=== PATIENT | female | born 1995 | race Caucasian/White ===

== ENCOUNTER 2019-02-13 10:03 | Emergency (ER) | payer SELFPAY ==
[2019-02-13 10:04] VITALS: BP 129/82; PULSE 77; RESP 20; TEMP 36.8; O2SAT 98; BMI 20.9
--- NOTE | 2019-02-13 10:22 | US_ITS ---
STUDY: ULTRASOUND OF THE FEMALE PELVIS - COMPLETE REASON FOR EXAM: Female, 23 years old. Right lower quadrant pain. LMP: January 22, 2019 TECHNIQUE: Transvaginal TECHNICAL QUALITY: Adequate. COMPARISON: None. FINDINGS: The uterus is retroverted and is tilted to the left side of the pelvis. The uterus measures 7.5 cm x 5.3 cm x 3.4 cm. There is a Nabothian cyst of the cervix. The endometrium measures 9.0 mm in thickness, and is hyperechoic. There is no demonstrated endometrial mass. Findings suggestive of a septated uterus. There is no demonstrated myometrial mass. I.U.D. - The patient does not have an I.U.D. The right ovary is visualized. The right ovary measures 2.3 cm x 1.8 cm x 1.3 cm. There is no right ovarian cyst or ovarian mass. There is no visualized right adnexal mass or complex lesion. There is normal arterial and normal venous vascularity. The left ovary is visualized. The left ovary measures 3.4 cm x 2.0 cm x 2.0 cm. There is no left ovarian cyst or ovarian mass. There is no visualized left adnexal mass or complex lesion. There is normal arterial and normal venous vascularity. There is minimal fluid in the cul-de-sac. Polycystic ovary disease: No. US/Transvaginal Non- IMPRESSION: Findings suggestive of a septated uterus. Electronically Signed: Bertin Vang, at 12:33 EDT , Service support ,
[2019-02-13 10:42] LABS: Absolute Lymphocyte Count 2.28 X10^3/ul (0.83-4.51); Absolute Neutrophil Count 3.3 X10^3/uL (2.0-7.7); Basophil# 0.08 X10^3/uL; Basophil% 1.2 % (0-1); Eosinophil# 0.76 X10^3/uL; Hematocrit 40.5 % (37-47); Hemoglobin 13.6 g/dl (12.0-15.0); Lymphocyte # 2.28 X10^3/ul (4.0); Lymphocyte % 32.9 % (19-41); Mean Corp Hgb Conc 33.6 g/gl (32-36); Mean Corpuscular Hgb 30.6 pg (27.0-32.0); Mean Platelet Vol. 11.2 fl (6.2-12.0); Monocyte# 0.52 X10^3/uL; Monocyte% 7.5 % (0-10); Neutrophil # 3.29 X10^3/uL (2.7-7.7); Neutrophil % 47.3 % (47-70); Platelet Count 234 K/mm3 (150-450); RBC Distribution Width CV 12.2 % (11.6-14.6); RBC Distribution Width SD 40.7 fl (35.1-43.9); Red Blood Count 4.45 M/mm3 (4.2-5.4); White Blood Count 6.9 K/mm3 (4.4-11.0)
[2019-02-13 10:43] LABS: POSITIVE COUNT NO; POSITIVE DIFFERENTIAL NO; POSITIVE MORPHOLOGY NO
[2019-02-13] MEDS: Ondansetron 4 MG/2 ML Vial IV (10:52)
[2019-02-13] MEDS: 0.9% Normal Saline 1,000 ML 150 ML IV (10:52)
[2019-02-13] MEDS: Morphine 4 MG/ML Syringe IV ×2 (10:52→12:59)
[2019-02-13 10:53] LABS: Anion Gap 8 (5-15); BUN 12 mg/dL (7-18); BUN/Creat Ratio 16.3 RATIO (10-20); Calcium,Total 8.8 mg/dL (8.5-10.1); Chloride 103 mmol/L (98-107); Creatinine, Serum 0.74 mg/dL (0.55-1.02); EST Glomerular Filtration Rate 105 mL/min (>60); Est Glom Filt Rate - Afr Amer 127 mL/min (>60); Estimated Creatinine Clearance 111.01 ml/min; Glucose 95 mg/dL (74-106); Potassium 4.1 mmol/L (3.5-5.1); Sodium Level 139 mmol/L (136-145)
[2019-02-13 10:59] LABS: Pregnancy, Serum, hCG Quali. NEGATIVE Negative (0-9 Nonpreg)
[2019-02-13 11:01] VITALS: BP 130/88; PULSE 79; RESP 18
[2019-02-13 11:10] LABS: Glucose, Dipstick Normal (Normal); Ketone-Dipstick 5 mg/dl (Negative); Leukocyte Esterase-Dipstick 25 /ul (Negative); Mucous, Urine 0 SEEN /hpf (<or=2+); Nitrite-Dipstick Negative (Negative); Occult Blood-Urine 250 /ul (Negative); Protein-Dipstick 30 mg/dl (Negative); Urine Bilirubin Dipstick Negative (Negative); Urine Urobilinogen Normal (Normal); Urine pH 6.5 (5.0 - 8.0); White Blood Cells 0 SEEN /hpf (0-5)
[2019-02-13 11:22] LABS: Color, Urine Amber (Yellow); Urine Clarity Cloudy (Clear)
[2019-02-13 11:23] LABS: Red Blood Cells-Urine > 100 SEEN /hpf (0-5)
[2019-02-13 11:24] LABS: Bacteria 2+ /hpf (None Seen); Squamous Epithelial Cells - UA 0-5 SEEN /hpf (5-10)
[2019-02-13] MEDS: Ketorolac 30 MG/ML Syringe IV (11:32)
--- NOTE | 2019-02-13 11:49 | CT_ITS ---
STUDY: CT ABDOMEN AND PELVIS WITHOUT CONTRAST REASON FOR EXAM: Female, 23 years old. PT STATED R GROIN PAIN RADIATION DOSAGE (If Supplied By Facility): CTDIvol = ( 6.08 ) mGy, DLP = ( 302.31 ) mGycm TECHNIQUE: Transaxial images were obtained from the dome of the diaphragm to the symphysis pubis without oral contrast, and without intravenous contrast. Sagittal and coronal images were reconstructed. Individualized dose optimization techniques were used for this CT. COMPARISON: None. FINDINGS: The visualized lung bases are unremarkable. The visualized portions of the heart are within normal limits. Normal liver. Normal gallbladder and extrahepatic biliary system. Normal spleen. Normal pancreas. Normal bilateral adrenal glands. There is no evidence of nephrolithiasis. The left kidney has a normal appearance. The right kidney demonstrates moderate hydronephrosis and hydroureter. The right ureter is dilated to the ureterovesical junction where note is made of an obstructing calculus measuring approximately 3 mm, refer to image #146 series 2, image #40 series 601 and image #62 series 602. The bladder is contracted. No bladder stone. Normal visualized stomach. Normal small intestine. Normal colon. The appendix is visualized and appears normal. Normal abdominal aorta. Normal inferior vena cava. Normal retroperitoneum. Normal urinary bladder. Normal abdominal wall. Normal osseous structures. CT/Abdomen/Pelvis without Cont IMPRESSION: There is an obstructing distal right ureterovesical junction calculus with moderate hydronephrosis and hydroureter as described. This stone measures approximately 3 mm in diameter. Electronically Signed: Christie Pro MD at 12:20 EDT , Service support ,
--- NOTE | 2019-02-13 12:04 | ED.DCSUM_ITS ---
- ER Visit Summary Date of Service: 02/13/19 Chief Complaint: Right lower quadrant pain History of Present Illness: The patient is a 23 F who woke this morning with right lower quadrant pain and pain into the right low back. She reports some mild nausea. She denies urinary symptoms. Her last menstrual cycle was approximately 3 weeks ago. She does have a history of ovarian cysts. She denies any personal or family history of kidney stones. Physical Examination: Vital signs unremarkable. Patient is lying in bed. She appears uncomfortable. Head neck examination is unremarkable. Heart is regular rate and rhythm. Lung sounds are clear. Abdomen is soft with tenderness in the right lower quadrant. No guarding or rebound. Back examination reveals no CVA tenderness. There is tenderness in the right low lumbar paraspinal region. Test Results: Urinalysis shows RBCs. test is negative. Emergency Department Course and Treatment: Patient was given morphine and Zofran for pain. She was initially sent to ultrasound prior to return of labs as my first concern was ovarian torsion. Upon return of blood work and urinalysis, patient is given Toradol. Pelvic ultrasound ultimately returned with normal ova ry. Septated uterus is noted. CT flank reveals a 3 mm distal right ureter stone at the UVJ. On repeat evaluation patient is resting much more comfortably. Test results discussed with patient and mother at bedside. She will be discharged with appropriate medication and follow-up with Dr. Ramesh as needed. Treatment Plan: [] Disposition: Discharge Impression: Right distal ureterolithiasis This note was generated with [employer] dictation software. It may contain incorrect words, spelling, and punctuation that were not noted in review of the chart prior to signing ED Disposition - Plan for ED Patient: Referrals: Care Physician,No Primary [Primary Care Provider] -
[2019-02-13 13:02] VITALS: BP 120/88; PULSE 72; RESP 18; O2SAT 99
--- NOTE | 2019-02-13 13:59 | DCINST.ED_ITS ---
ED Disposition - Plan for ED Patient: Disposition: Home or Assisted Living Instructions: ED Stone Renal W Colic Prescriptions: Hydrocodone Bitart/Apap 5-325 [[employer] 5MG-325MG] 1 tablet PO Q6H PRN PRN 3 Days #10 tablet PRN Reason: Pain Ondansetron [Zofran Odt] 4 mg PO Q8H PRN PRN #10 tablet PRN Reason: Nausea Tamsulosin HCl [Flomax] 0.4 mg PO DAILY #7 capsule Ketorolac [Toradol] 10 mg PO Q6H PRN #14 tablet PRN Reason: Pain Referrals: Davi Ramesh MD [STAFF PHYSICIAN] - As Needed
[2019-02-13 14:00] VITALS: BP 113/81; PULSE 74; RESP 16
[2019-02-13 14:10] VITALS: BP 113/81; PULSE 74; RESP 16
== END 2019-02-13 14:10 | disposition home or self-care (01) ==
PROVIDERS: Emergency Provider Emergency Medicine
DX: N20.1 Calculus of ureter (principal)
CPT/HCPCS: 74176; 76830; 80048; 81001; 84703; 85025; 93976; 96361; 96374; 96375; 96376; 99283; J7030; A4216; J2405

== ENCOUNTER 2019-02-19 20:19 | Emergency (ER) | payer SELFPAY ==
[2019-02-19 20:23] VITALS: BP 121/77; PULSE 83; RESP 16; TEMP 36.7; BMI 21.8
--- NOTE | 2019-02-19 21:23 | ED.DCSUM_ITS ---
- ER Visit Summary Date of Service: 02/19/19 Chief Complaint: Constipation History of Present Illness: The patient is a 23 F recent diagnosis of kidney stone last Monday. Started on [place] and Toradol for pain. She denies any nausea, vomiting or any significant abdominal pain. States she just feels full. No fever. Examination: Well-appearing young female. Vital signs are stable afebrile. No distress. HEENT exam well-hydrated. Otherwise unremarkable. Neck nontender. Lungs clear to auscultation bilaterally. Heart regular rhythm no murmur. Abdomen soft. Nondistended. Normal bowel sounds no peritoneal signs. No hernias. No masses. No signs of obstruction. Moving all 4 extremities. Neurologically awake and alert with no focal motor deficits. Test Results: None Emergency Department Course and Treatment: Patient's history and exam are consistent with constipation most likely from a recent narcotics for her kidney stone. Treatment Plan: She and mom are comfortable with her being discharged home on magnesium citrate for constipation. Disposition: dc Impression: Acute constipation secondary to pain medications for recently diagnosed kidney stone This note was generated with [employer] dictation software. It may contain incorrect words, spelling, and punctuation that were not noted in review of the chart prior to signing ED Disposition - Plan for ED Patient: Referrals: Care Physician,No Primary [Primary Care Provider] -
[2019-02-19] MEDS: Magnesium Citrate 300 ML PO (21:24)
--- NOTE | 2019-02-19 21:31 | ED.DEP ---
ED Disposition - Plan for ED Patient: Disposition: Home or Assisted Living Instructions: ED Constipation Referrals: Blu Boyd MD [STAFF PHYSICIAN] - As Needed Additional Instructions: Magnesium citrate for the constipation. I would drink 1 bottle over half an hour. If no bowel movement in 1-2 hours and drink the second bottle. Plenty of fluids. Fiber rich foods such as celery, carrots and fiber crackers. Apples are also very good with the apple peel on them. Follow-up if not improving return if worse.
[2019-02-19 21:42] VITALS: BP 119/76; PULSE 83; RESP 14; O2SAT 99
== END 2019-02-19 21:43 | disposition home or self-care (01) ==
PROVIDERS: Emergency Provider Emergency Medicine
DX: K59.03 Drug induced constipation (principal); T40.2X5A Adverse effect of other opioids, initial encounter; T39.8X5A Adverse effect of other nonopioid analgesics and antipyretics, not elsewhere classified, initial encounter; N20.0 Calculus of kidney
CPT/HCPCS: 99282

== ENCOUNTER 2019-06-29 10:19 | Emergency (ER) | payer SELFPAY ==
[2019-06-29 10:20] VITALS: BP 130/92; PULSE 88; RESP 16; TEMP 36.7; O2SAT 100; BMI 22.6
--- NOTE | 2019-06-29 10:35 | EKG12_ITS ---
Test Reason : CP Blood Pressure : / mmHG Vent. Rate : 071 BPM Atrial Rate : 071 BPM P-R Int : 130 ms QRS Dur : 064 ms QT Int : 398 ms P-R-T Axes : 072 062 068 degrees QTc Int : 432 ms Normal sinus rhythm Normal ECG Confirmed by LLOYD STEPHENS, GIUSEPPE ([id number]), news videotape editor KIMBERLEY DUNCAN ([id number]) on 07/01/2019 1:41:33 PM Referred By: CAT Confirmed By:GIUSEPPE DESAI MD
--- NOTE | 2019-06-29 10:36 | ED.VIS.GEN ---
History of Present Illness Chief Complaint: Chest Pain Informant: Patient, Family Onset: Today Context: Gradual Onset Timing: Continuous Current Severity: Moderate Maximum Severity: Severe Narrative: She presents with chest pain that started around 3 AM this morning. She presents at 1030 for evaluation. Patient states she had not been to sleep yet. She has not been able to sleep because of the pain. She points to the lower sternal area and states it radiates up her chest and towards the right side of her neck. She does feel like she has some pain in her back. She does not have cough or URI symptoms. She denies nausea or vomiting. Past Medical History - Allergies and Home Meds Allergies/Adverse Reactions: Allergies No Known Allergies Allergy (Verified 06/29/19 10:26) Primary Care Physician: Care Physician,No Primary [Primary Care Provider] - Prior records reviewed: Yes Past Medical History: - - Reviewed Smoking Status: Never smoker Review of Systems General: Denies: Chills, Fever Eyes: Denies: Visual changes - bilaterally ENT: Denies: Bilateral ear pain Cardiovascular: Reports: Chest pain Respiratory: Reports: Dyspnea - Hard to get a deep breath. Denies: Cough Gastrointestinal: Denies: Abdominal pain, Nausea, Vomiting Musculoskeletal: Reports: Neck pain, Back pain Neurological: Denies: Headache, Weakness, Parasthesia Endocrine: Denies: Polyuria, Polydipsia Hematologic: Denies: Easy bruising Allergy: Denies: Uticaria Physical Exam Vital Signs/Narrative: Vital Signs Temp Pulse Resp BP Pulse Ox 06/29/19 10:20 98.0 F 88 16 130/92 H 100 Inital Vital Signs reviewed: Yes General: Well nourished, Well developed ENT: Moist mucous membranes Neck: Supple, Nontender Cardiovascular: Regular rate, Regular rhythm Respiratory: No distress, CTA bilaterally, Chest tenderness - Reproducible tenderness of the lower sternum. Abdomen: Soft, Nontender Back: Nontender Extremities: Nontender Skin: Normal color Neurological: Alert, Oriented x3 Psychological: - - Anxious Diagnostic/Tx/Re-eval Impressions Chest X-Ray 06/29/19 10:52 IMPRESSION: Normal x-ray examination of the chest. Electronically Signed: Chriss Marcano MD ([place]oks) at 11:16 EDT , Service support , 06/29/19 10:52 Chest PA and Lateral [RAD] Stat Laboratory Results 06/29/19 06/29/19 06/29/19 10:40 10:40 10:40 WBC 12.3 H RBC 4.59 Hgb 14.2 Hct 42.2 MCV 91.9 MCH 30.9 MCHC 33.6 RDW Std Deviation 40.2 RDW Coeff of Lili 11.9 Plt Count 306 MPV 11.1 Immature Gran % (Auto) 0.600 Neut % (Auto) 70.8 H Lymph % (Auto) 18.4 L Mclennan % (Auto) 8.5 Eos % (Auto) 1.3 Baso % (Auto) 0.4 Absolute Neuts (auto) 8.7 H Absolute Lymphs (auto) 2.27 Nucleated RBC % 0 D-Dimer Quant (PE/DVT) < 0.27 L Sodium 138 Potassium 3.6 Chloride 104 Carbon Dioxide 29.0 Anion Gap 5 BUN 12 Creatinine 0.68 Estim Creat Clear Calc 121.48 Est GFR (MDRD) Af Amer 140 Est GFR (MDRD) Non-Af 115 BUN/Creatinine Ratio 17.8 Glucose 89 Calcium 8.9 Total Bilirubin 0.40 Direct Bilirubin 0.12 AST 15 ALT 16 Alkaline Phosphatase 63 Troponin I < 0.015 Total Protein 7.4 Albumin 4.0 Globulin 3.4 Lipase 62 L Serum , Qual 06/29/19 10:40 WBC RBC Hgb Hct MCV MCH MCHC RDW Std Deviation RDW Coeff of Lili Plt Count MPV Immature Gran % (Auto) Neut % (Auto) Lymph % (Auto) Mclennan % (Auto) Eos % (Auto) Baso % (Auto) Absolute Neuts (auto) Absolute Lymphs (auto) Nucleated RBC % D-Dimer Quant (PE/DVT) Sodium Potassium Chloride Carbon Dioxide Anion Gap BUN Creatinine Estim Creat Clear Calc Est GFR (MDRD) Af Amer Est GFR (MDRD) Non-Af BUN/Creatinine Ratio Glucose Calcium Total Bilirubin Direct Bilirubin AST ALT Alkaline Phosphatase Troponin I Total Protein Albumin Globulin Lipase Serum , Qual NEGATIVE - EKG Initial EKG Interpretation: Sinus Rhythm - Sinus at 71 with no acute ischemia. - Medical Decision Making Patient was given morphine, Zofran, and IV fluids. On repeat evaluation she reports significant improvement in her symptoms. We talked about the possibility of gastritis and reflux versus costochondritis. She does state that she just finished a course of prednisone for poison james. This leads me more towards gastritis and reflux as opposed to costochondritis. Patient be started on Prilosec. She will also be given a prescription for Bentyl if needed. She will be referred to local primary care physician to establish care. ED Disposition - Plan for ED Patient: Disposition: Home or Assisted Living Diagnosis: Atypical chest pain Instructions: CHEST PAIN, NonCardiac Prescriptions: Dicyclomine HCl [Bentyl] 20 mg PO TIDAC PRN #20 capsule PRN Reason: Pain Omeprazole [Prilosec] 20 mg PO DAILY #30 capsule Referrals: Marilynn Schwartz MD [STAFF PHYSICIAN] - 1-2 Weeks
[2019-06-29] MEDS: Morphine 4 MG/ML Syringe IV (10:48)
[2019-06-29] MEDS: 0.9% Normal Saline 1,000 ML 150 ML IV (10:48)
[2019-06-29] MEDS: Ondansetron 4 MG/2 ML Vial IV (10:48)
--- NOTE | 2019-06-29 10:52 | RAD_ITS ---
STUDY: X-RAY CHEST REASON FOR EXAM: Female, 23 years old. Chest pain TECHNIQUE: PA and lateral views of the chest. COMPARISON: 09/25/2013 FINDINGS: EKG leads project over the chest. The lungs are clear and expanded. There is no demonstrated pleural abnormality. Normal size heart. Normal mediastinum and adrianne. Normal visualized pulmonary arteries. Normal visualized aortic arch and descending thoracic aorta. Normal visualized thoracic spine. Normal visualized ribs, clavicles, and shoulders. There is no demonstrated abnormality of the visualized soft tissue structures of the upper abdomen. RAD/Chest PA and Lateral IMPRESSION: Normal x-ray examination of the chest. Electronically Signed: Chriss Marcano MD ([place]) at 11:16 EDT , Service support ,
[2019-06-29 11:33] LABS: Absolute Lymphocyte Count 2.27 X10^3/uL (0.83-4.51); Absolute Neutrophil Count 8.7 X10^3/uL (2.0-7.7); Basophil# 0.05 X10^3/uL; Basophil% 0.4 % (0-1); Eosinophil# 0.16 X10^3/uL; Eosinophils% 1.3 % (0-5); Hematocrit 42.2 % (37-47); Hemoglobin 14.2 g/dL (12.0-15.0); Lymphocyte # 2.27 X10^3/ul (4.0); Lymphocyte % 18.4 % (19-41); Mean Corp Hgb Conc 33.6 g/dL (32-36); Mean Corpuscular Hgb 30.9 pg (27.0-32.0); Mean Corpuscular Volume 91.9 fL (81-99); Mean Platelet Vol. 11.1 fl (6.2-12.0); Monocyte# 1.05 X10^3/uL; Monocyte% 8.5 % (0-10); NRBC Flagged by Analyzer 0 % (0-5); Neutrophil # 8.74 X10^3/uL (2.7-7.7); Neutrophil % 70.8 % (47-70); Platelet Count 306 K/mm3 (150-450); RBC Distribution Width CV 11.9 % (11.6-14.6); RBC Distribution Width SD 40.2 fl (35.1-43.9); Red Blood Count 4.59 M/mm3 (4.2-5.4); White Blood Count 12.3 K/mm3 (4.4-11.0)
[2019-06-29 11:37] LABS: Internal QC Validated? YES +Cl - CLEAR BKGD; Pregnancy, Serum, hCG Quali. NEGATIVE Negative
[2019-06-29 11:39] LABS: D-Dimer Quantitative (DVT/PE) < 0.27 FEU/ug/m (0.27-0.49)
[2019-06-29 11:47] LABS: AST(SGOT) 15 U/L (15-37); Alanine Aminotransfer ALT/SGPT 16 U/L (13-56); Alkaline Phosphatase 63 U/L (45-117); Anion Gap 5 (5-15); BUN 12 mg/dL (7-18); BUN/Creat Ratio 17.8 RATIO (10-20); Bilirubin, Direct 0.12 mg/dL (0.00-0.30); Calcium,Total 8.9 mg/dL (8.5-10.1); Chloride 104 mmol/L (98-107); Creatinine, Serum 0.68 mg/dL (0.55-1.02); EST Glomerular Filtration Rate 115 mL/min (>60); Est Glom Filt Rate - Afr Amer 140 mL/min (>60); Estimated Creatinine Clearance 121.48 ml/min; Globulin 3.4 g/dL (2.2-4.2); Glucose 89 mg/dL (74-106); Lipase 62 U/L (73-393); Potassium 3.6 mmol/L (3.5-5.1); Protein, Total 7.4 g/dL (6.4-8.2); Sodium Level 138 mmol/L (136-145)
[2019-06-29 13:07] VITALS: BP 105/74; PULSE 61; RESP 15; O2SAT 98
== END 2019-06-29 13:08 | disposition home or self-care (01) ==
PROVIDERS: Emergency Provider Emergency Medicine
DX: R07.89 Other chest pain (principal); R06.00 Dyspnea, unspecified; M54.2 Cervicalgia; M54.9 Dorsalgia, unspecified
CPT/HCPCS: 71046; 80048; 80076; 83690; 84484; 84703; 85025; 85379; 93005; 96361; 96374; 96375; 99284; J7030; A4216; J2405

== ENCOUNTER 2020-01-02 15:04 | Emergency (ER) | payer SELFPAY ==
[2020-01-02 15:05] VITALS: BP 114/80; PULSE 94; RESP 14; TEMP 36.9; O2SAT 97; BMI 24.3
[2020-01-02 15:19] VITALS: RESP 18
--- NOTE | 2020-01-02 15:34 | ED.VIS.URI ---
History of Present Illness Chief Complaint: Nausea/Vomiting/Diarrhea Informant: Patient Onset: Weeks - 1 Context: Gradual Onset Timing: Intermittent Current Severity: Moderate Maximum Severity: Moderate Worsened by: Eating Solids - makes nauseated/vomit Relieved by: - - zofran Associated Symptoms: Nasal Congestion, Myalgias, Nausea, Vomiting, Diarrhea, Productive Cough. Negative for: Headache, Shortness of Breath, Chest Pain, Hemoptysis Narrative: Healthy 24-year-old female has been sick with respiratory and GI complaints for 1 week. She states her sisters were diagnosed with influenza. She went to [facility] and was swabbed for influenza but told it was negative. Her illness has persisted. She feels achy all over, she feels dehydrated although she is trying to drink fluids. She is urinating. She was given Zofran that she is taking and that is helping but when she ever she eats, she still vomits. She started having diarrhea yesterday, is watery and nonbloody, non-melanotic. Occasional mild abdominal cramping but nothing major or focal. No dyspnea except when she is having coughing fits it is hard to take a breath. No wheezing. Not an asthmatic. She is not . No urinary or vaginal complaints. Left ear occasionally hurts. No recent travel out of the region. Past Medical History - Allergies and Home Meds Allergies/Adverse Reactions: Allergies No Known Allergies Allergy (Verified 01/02/20 15:05) Primary Care Physician: Care Physician,No Primary [Primary Care Provider] - Past Medical History: None Surgical History: no surgical history Lives: With Family Smoking Status: Never smoker Review of Systems General: Reports: Fever, Malaise, Subjective. Denies: Chills, Sweats Eyes: Denies: Visual changes - bilaterally, Diplopia ENT: Reports: Left ear pain. Denies: Rhinorrhea, Sore throat Cardiovascular: Denies: Chest pain, Palpitations Respiratory: Reports: Cough, Sputum. Denies: Dyspnea, Dyspnea on exertion, Orthopnea Gastrointestinal: Reports: Abdominal pain, Nausea, Vomiting, Diarrhea. Denies: Melena, Hematochezia Genitourinary: Denies: Dysuria, Hematuria, Frequency Musculoskeletal: Reports: Myalgias. Denies: Arthralgias, Back pain, Extremity Pain Skin: Denies: Rash, Wounds Neurological: Denies: Headache, Weakness, Numbness Physical Exam Vital Signs/Narrative: Vital Signs Temp Pulse Resp BP Pulse Ox 01/02/20 15:19 18 01/02/20 15:05 98.4 F 94 14 114/80 97 Inital Vital Signs reviewed: Yes General: Well nourished, Well developed, - - well-apparing, nad Head: Normocephalic, Atraumatic Eyes: Perrl, EOMI Ears: Normal external canal, TM's clear. 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 She agreed. She was treated with IV fluids 1 L, along with a small dose of Phenergan and Toradol. She feels much better on reevaluation and is able to drink fluids. Will be discharged home, continue supportive care and hydration, she has Zofran which is helping at home. Follow-up or return if worse. ED Disposition - Plan for ED Patient: Disposition: Home or Assisted Living Diagnosis: Influenza-like illness Instructions: GASTROENTERITIS, Viral (6y-Adult), VIRAL SYNDROME (Adult) Referrals: Maida Arias [NON-STAFF] - 3-5 Days if not improving (or your own doctor if you have one)
[2020-01-02] MEDS: 0.9% Normal Saline 1,000 ML 999 ML IV (15:46)
[2020-01-02] MEDS: proMETHazine 25 MG/ML Syringe 6.25 MG IV (15:47)
[2020-01-02] MEDS: Ketorolac 30 MG/ML Syringe IV (15:47)
== END 2020-01-02 17:06 | disposition home or self-care (01) ==
PROVIDERS: Emergency Provider Emergency Medicine
DX: J11.1 Influenza due to unidentified influenza virus with other respiratory manifestations (principal); R11.2 Nausea with vomiting, unspecified; R19.7 Diarrhea, unspecified; R05 Cough; H53.2 Diplopia; H92.02 Otalgia, left ear
CPT/HCPCS: 96361; 96374; 96375; 99283; J7030; A4216

== ENCOUNTER → 2020-03-23 08:08 | Outpatient (CLI) | payer SELFPAY ==
[2020-03-19 12:17] VITALS: BMI 24.3
--- NOTE | 2020-03-23 08:10 | US_ITS ---
STUDY: FIRST TRIMESTER OBSTETRICAL ULTRASOUND REASON FOR EXAM: Female, 24 years old dating LMP: January 18, 2020. TECHNIQUE: Transabdominal TECHNICAL QUALITY: Adequate. PRIOR ULTRASOUND: None. FINDINGS: There is visualization of a single gestational sac in a normal intrauterine position. The mean sac diameter (MSD) measures 3.01 cm, indicating an estimated gestational age (EGA) of 8 weeks, 1 days. The gestational sac shape is within normal limits. There is a visualized yolk sac. The yolk sac measures 6.8 mm. The placenta is non-visualized. There is visualization of a live embryo. The crown-rump length (CRL) measures 1.57 cm, indicating an estimated gestational age (EGA) of 7 weeks, 6 days. There is demonstrated cardiac activity with a heart rate of 169 bpm. The estimated gestation age (EGA) by LMP is 9 weeks, 2 days. The estimated date of delivery (EDUARDO) by LMP is October 24, 2020. The estimated gestation age (EGA) by US is 8 weeks, 0 days. The estimated date of delivery (EDUARDO) by US is November 02, 2020. The uterus measures 11.6 cm x 7.9 cm x 1.8 cm. There is no demonstrated uterine fibroid. The cervix is closed. The right ovary measures 3.3 cm x 2.2 cm x 3.9 cm. There is no right ovarian cyst. There is no visualized right adnexal mass or complex lesion. The left ovary measures 2.9 cm x 2.1 cm x 2.8 cm. Within it, a dominant follicle is seen. This measures 2 cm x 1.7 cm x 1.7 cm. There is no visualized left adnexal mass or complex lesion. There is no fluid in the cul de sac. US/Init OB < 14Wks US IMPRESSION: Single live intrauterine gestation with a mean gestational age of 8 weeks. Dominant follicle in the left ovary measuring 2 cm x 1.7 cm x 1.7 cm. Electronically Signed: Bertin Vang, at 9:10 EDT , Service support ,
== END ==
PROVIDERS: Referring Provider Obstetrics & Gynecology; Visit Provider Obstetrics & Gynecology
DX: Z34.90 Encounter for supervision of normal pregnancy, unspecified, unspecified trimester (principal)
CPT/HCPCS: 76801

== ENCOUNTER 2020-03-23 18:36 | Emergency (ER) | payer MEDICAID, SELFPAY ==
[2020-03-19 12:17] VITALS: BMI 24.3
[2020-03-23 18:37] VITALS: BP 136/90; PULSE 89; RESP 14; TEMP 37; O2SAT 99; BMI 22.3
--- NOTE | 2020-03-23 18:51 | ED.DCSUM_ITS ---
- ER Visit Summary Date of Service: 03/23/20 Chief Complaint: Dental pain History of Present Illness: The patient is a 24 F who presents with dental pain. Left maxillary pain for 2 days. No other symptoms. She is 9 weeks . Physical Examination: There is a fractured tooth secondary to underlying decay at the left maxillary molars. No abscess, trismus, tongue elevation. Airway intact. Skin appears normal. Neck unremarkable. Test Results: None indicated Emergency Department Course and Treatment: Patient may use [id number] Tylenol for pain. Will prescribe Pen-Vee K. Follow-up with dental. Treatment Plan: As above Disposition: Discharge Impression: Dental pain This note was generated with [employer] dictation software. It may contain incorrect words, spelling, and punctuation that were not noted in review of the chart prior to signing ED Disposition - Plan for ED Patient: Referrals: Care Physician,No Primary [Primary Care Provider] -
--- NOTE | 2020-03-23 18:54 | ED.DEP ---
ED Disposition - Plan for ED Patient: Instructions: ED Tooth Pain Prescriptions: Penicillin V Potassium 500 mg PO 4X/DAY #40 tab Prescription Printed
[2020-03-23 19:04] VITALS: RESP 17
== END 2020-03-23 19:05 | disposition home or self-care (01) ==
LOC: ED 18:59
PROVIDERS: Emergency Provider Emergency Medicine
DX: K08.89 Other specified disorders of teeth and supporting structures (principal); O99.611 Diseases of the digestive system complicating pregnancy, first trimester; Z3A.09 9 weeks gestation of pregnancy
CPT/HCPCS: 76801; 99282

== ENCOUNTER → 2020-04-02 12:28 | Outpatient (CLI) | payer MEDICAID, SELFPAY ==
[2020-04-02 11:54] VITALS: BMI 22.3
[2020-04-02 13:14] LABS: Absolute Lymphocyte Count 2.12 X10^3/uL (0.83-4.51); Absolute Neutrophil Count 4.7 X10^3/uL (2.0-7.7); Basophil# 0.04 X10^3/uL; Basophil% 0.5 % (0-1); Eosinophil# 0.19 X10^3/uL; Eosinophils% 2.5 % (0-5); Hematocrit 38.7 % (37-47); Lymphocyte # 2.12 X10^3/ul (4.0); Lymphocyte % 27.8 % (19-41); Mean Corp Hgb Conc 33.6 g/dL (32-36); Mean Corpuscular Hgb 30.7 pg (27.0-32.0); Mean Corpuscular Volume 91.3 fL (81-99); Mean Platelet Vol. 11.3 fl (6.2-12.0); Monocyte# 0.56 X10^3/uL; Monocyte% 7.3 % (0-10); NRBC Flagged by Analyzer 0 % (0-5); Neutrophil # 4.69 X10^3/uL (2.7-7.7); Neutrophil % 61.5 % (47-70); Platelet Count 301 K/mm3 (150-450); RBC Distribution Width CV 12.4 % (11.6-14.6); Red Blood Count 4.24 M/mm3 (4.2-5.4); White Blood Count 7.6 K/mm3 (4.4-11.0)
[2020-04-02 14:37] LABS: HIV - WCH Non-Reactive (Nonreactive); Hepatitis B Surface Antigen Non-Reactive (Nonreactive); Hepatitis C Antibody Non-Reactive (Nonreactive); Rubella IgG 16.4 IU/mL
[2020-04-02 18:05] LABS: Amphetamine Urine VISTA NEGATIVE (<1000 ng/mL); Barbiturate Urine VISTA NEGATIVE (< 200 ng/mL); Benzodiazepine Urine VISTA NEGATIVE (< 200 ng/mL); Cocaine Urine VISTA NEGATIVE (< 300 ng/mL); Ecstacy Urine VISTA NEGATIVE (< 500 ng/mL); Methadone Urine VISTA NEGATIVE (< 300 ng/mL); PCP Urine VISTA NEGATIVE (< 25 ng/mL); THC Urine VISTA POSITIVE (< 50 ng/mL); Vista UDS pH Range 5
[2020-04-02 21:33] LABS: Chlamydia Trachomatis by PCR Negative (Negative); Neisserai gonorrhoeae by PCR Negative (Negative); Probe Check PASS; Sample Adequacy Control PASS; Specimen Processing Control PASS
[2020-04-09 02:20] LABS: Rapid Plasmin Reagin (RPR) NONREACTIVE (NONREACTIVE)
== END ==
PROVIDERS: Referring Provider Obstetrics & Gynecology; Visit Provider Obstetrics & Gynecology
DX: Z34.00 Encounter for supervision of normal first pregnancy, unspecified trimester (principal)
CPT/HCPCS: 36415; 80307; 85025; 86592; 86703; 86762; 86803; 86850; 86900; 86901; 87086; 87088; 87340; 87491; 87591

== ENCOUNTER 2020-04-06 16:27 | Emergency (ER) | payer MEDICAID, SELFPAY ==
[2020-04-02 11:54] VITALS: BMI 22.3
[2020-04-06 16:29] VITALS: BP 133/71; PULSE 112; RESP 16; TEMP 36.7; O2SAT 96; BMI 22.6
--- NOTE | 2020-04-06 16:33 | ED.RN ---
PT ELIZABETH STARK PHONE NUMBER [phone].
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
[2020-04-06] MEDS: Acetaminophen 325 MG Tablet 650 MG PO (18:14)
[2020-04-06 18:26] VITALS: RESP 16
== END 2020-04-06 18:25 | disposition home or self-care (01) ==
PROVIDERS: Emergency Provider Emergency Medicine
DX: R10.2 Pelvic and perineal pain (principal); O26.891 Other specified pregnancy related conditions, first trimester; Z3A.12 12 weeks gestation of pregnancy
CPT/HCPCS: 99283

== ENCOUNTER 2020-05-04 18:06 | Emergency (ER) | payer MEDICAID, SELFPAY ==
[2020-04-14 12:22] VITALS: BMI 22.6
[2020-05-04 18:07] VITALS: BP 128/79; PULSE 68; RESP 17; TEMP 36.6; O2SAT 98; BMI 22.3
--- NOTE | 2020-05-04 18:16 | ED.VIS.GEN ---
History of Present Illness Chief Complaint: Nausea/Vomiting Informant: Patient Onset: Today Narrative: Patient present secondary to nausea and vomiting. She is currently 15 weeks . She reports having some morning sickness throughout her , but symptoms seem to be worse today. She is had nausea and vomiting not relieved by Zofran at home. She has had some mild diarrhea. No fever or chills. She has some mild lower abdominal pain and cramping. No spotting. - Past Medical History (1) Status: Chronic Comment: NIPT low risk. Carrier screening negative for 14 out of 14 (2) Anxiety Status: Chronic Comment: Rx zoloft 04/13 and started counseling Past Medical History - Allergies and Home Meds Allergies/Adverse Reactions: Allergies No Known Allergies Allergy (Verified 05/04/20 18:06) Primary Care Physician: Care Physician,No Primary [Primary Care Provider] - Doctors: Dr. Seay Surgical History: no surgical history Smoking Status: Never smoker Review of Systems General: Denies: Chills, Fever Eyes: Denies: Visual changes - bilaterally ENT: Denies: Bilateral ear pain Cardiovascular: Denies: Chest pain Respiratory: Denies: Dyspnea, Cough Gastrointestinal: Reports: Abdominal pain, Nausea, Vomiting, Diarrhea Genitourinary: Denies: Dysuria Musculoskeletal: Denies: Extremity Pain Skin: Denies: Rash Hematologic: Denies: Easy bruising, Easy bleeding Allergy: Denies: Uticaria Physical Exam Vital Signs/Narrative: Vital Signs Temp Pulse Resp BP Pulse Ox 05/04/20 18:07 97.8 F 68 17 128/79 H 98 Inital Vital Signs reviewed: Yes General: Well nourished, Well developed Head: Normocephalic ENT: Moist mucous membranes Neck: Supple Cardiovascular: Regular rate, Regular rhythm Respiratory: No distress, CTA bilaterally Abdomen: Soft, Nontender, Hypoactive bowel sounds Skin: Normal color Neurological: Alert, Oriented x3 Psychological: Normal affect Diagnostic/Tx/Re-eval Laboratory Results 05/04/20 05/04/20 18:27 19:28 Sodium 138 Potassium 4.0 Chloride 107 Carbon Dioxide 25.0 Anion Gap 6 BUN 6 L Creatinine 0.52 L Estim Creat Clear Calc 157.52 Est GFR (MDRD) Af Amer 187 Est GFR (MDRD) Non-Af 155 BUN/Creatinine Ratio 11.5 Glucose 76 Calcium 8.7 Urine Color Yellow Urine Clarity Sl. Cloudy Urine pH 6.5 Ur Specific [place] 1.015 Urine Protein Negative Urine Glucose (UA) Normal Urine Ketones 150 H Urine Occult Blood Negative Urine Nitrite Negative Urine Bilirubin Negative Urine Urobilinogen Normal Ur Leukocyte Esterase Negative - Medical Decision Making Patient was given a liter of IV fluids along with Reglan and Benadryl. On repeat evaluation she does feel improved. She is tolerating ice chips at this time. She does have Zofran at home but may also be given Reglan. 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 ED Disposition - Plan for ED Patient: Disposition: Home or Assisted Living Diagnosis: Vomiting Instructions: ED Nausea Vomiting Adult Prescriptions: Metoclopramide [Reglan] 10 mg PO 4X/DAY PRN #20 tab PRN Reason: Nausea/Emesis Transmission Status: Pending to [id number] Referrals: Adilene Seay MD [STAFF PHYSICIAN] - 3-5 Days if not improving
[2020-05-04] MEDS: 0.9% Normal Saline 1,000 ML 1000 ML IV (18:26)
[2020-05-04] MEDS: Metoclopramide 10 MG/2 ML Vial 5 MG IV (18:27)
[2020-05-04] MEDS: DiphenhydrAMINE 50 MG/ML Syringe 25 MG IV (18:28)
[2020-05-04 18:47] LABS: Anion Gap 6 (5-15); BUN 6 mg/dL (7-18); BUN/Creat Ratio 11.5 RATIO (10-20); Calcium,Total 8.7 mg/dL (8.5-10.1); Chloride 107 mmol/L (98-107); Creatinine, Serum 0.52 mg/dL (0.55-1.02); EST Glomerular Filtration Rate 155 mL/min (>60); Est Glom Filt Rate - Afr Amer 187 mL/min (>60); Estimated Creatinine Clearance 157.52 ml/min; Glucose 76 mg/dL (74-106); Sodium Level 138 mmol/L (136-145)
[2020-05-04 19:34] LABS: Bacteria 0 SEEN /hpf (None Seen); Mucous, Urine 0 SEEN /hpf (<or=2+); Red Blood Cells-Urine 0 SEEN /hpf (0-5); White Blood Cells 0 SEEN /hpf (0-5)
[2020-05-04 19:37] LABS: Color, Urine Yellow (Yellow); Glucose, Dipstick Normal (Normal); Leukocyte Esterase-Dipstick Negative /ul (Negative); Nitrite-Dipstick Negative (Negative); Occult Blood-Urine Negative /ul (Negative); Protein-Dipstick Negative (Negative); Specific Gravity, Urine 1.015 (1.002-1.030); Urine Bilirubin Dipstick Negative (Negative); Urine Clarity Sl. Cloudy (Clear); Urine Urobilinogen Normal (Normal); Urine pH 6.5 (5.0 - 8.0)
[2020-05-04 19:44] LABS: Ketone-Dipstick 150 mg/dl (Negative)
[2020-05-04 19:50] LABS: Squamous Epithelial Cells - UA 0-5 SEEN /hpf (5-10)
== END 2020-05-04 20:03 | disposition home or self-care (01) ==
PROVIDERS: Emergency Provider Emergency Medicine
DX: O26.892 Other specified pregnancy related conditions, second trimester (principal); R11.2 Nausea with vomiting, unspecified; R19.7 Diarrhea, unspecified; R10.30 Lower abdominal pain, unspecified; O99.342 Other mental disorders complicating pregnancy, second trimester; F41.9 Anxiety disorder, unspecified; Z3A.15 15 weeks gestation of pregnancy
CPT/HCPCS: 80048; 81001; 96374; 96375; 99283; J7030; A4216

== ENCOUNTER → 2020-06-26 16:40 | Outpatient (CLI) | payer MEDICAID, SELFPAY ==
[2020-06-26 15:05] VITALS: BMI 22.3
[2020-06-26 17:33] LABS: Amphetamine Urine VISTA NEGATIVE (<1000 ng/mL); Barbiturate Urine VISTA NEGATIVE (< 200 ng/mL); Benzodiazepine Urine VISTA NEGATIVE (< 200 ng/mL); Cocaine Urine VISTA NEGATIVE (< 300 ng/mL); Ecstacy Urine VISTA NEGATIVE (< 500 ng/mL); Methadone Urine VISTA NEGATIVE (< 300 ng/mL); PCP Urine VISTA NEGATIVE (< 25 ng/mL); THC Urine VISTA POSITIVE (< 50 ng/mL); Vista UDS pH Range 6
== END ==
PROVIDERS: Referring Provider Obstetrics & Gynecology; Visit Provider Obstetrics & Gynecology
DX: Z34.90 Encounter for supervision of normal pregnancy, unspecified, unspecified trimester (principal); F12.10 Cannabis abuse, uncomplicated
CPT/HCPCS: 80307

== ENCOUNTER 2020-06-29 11:08 | Emergency (ER) | payer MEDICAID, SELFPAY ==
[2020-06-26 15:05] VITALS: BMI 22.3
[2020-06-29 11:10] VITALS: BP 118/69; PULSE 79; RESP 18; TEMP 36.3; O2SAT 99; BMI 23.8
--- NOTE | 2020-06-29 11:36 | EKG12_ITS ---
Test Reason : SYNCOPE Blood Pressure : / mmHG Vent. Rate : 066 BPM Atrial Rate : 066 BPM P-R Int : 138 ms QRS Dur : 066 ms QT Int : 398 ms P-R-T Axes : 057 030 041 degrees QTc Int : 417 ms Normal sinus rhythm with sinus arrhythmia Normal ECG Confirmed by LLOYD STEPHENS, GIUSEPPE ([id number]), image editor STEVEN FLORES ([id number]) on 07/01/2020 1:26:36 PM Referred By: Confirmed By:GIUSEPPE DESAI MD
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
[2020-06-29] MEDS: 0.9% Normal Saline 1,000 ML 1000 ML IV (12:05)
[2020-06-29 12:07] LABS: Absolute Lymphocyte Count 1.68 X10^3/uL (0.83-4.51); Absolute Neutrophil Count 8.8 X10^3/uL (2.0-7.7); Basophil# 0.04 X10^3/uL; Basophil% 0.4 % (0-1); Eosinophil# 0.09 X10^3/uL; Eosinophils% 0.8 % (0-5); Hematocrit 35.9 % (37-47); Lymphocyte # 1.68 X10^3/ul (4.0); Lymphocyte % 14.9 % (19-41); Mean Corp Hgb Conc 33.4 g/dL (32-36); Mean Corpuscular Hgb 31.4 pg (27.0-32.0); Mean Platelet Vol. 10.5 fl (6.2-12.0); Monocyte# 0.58 X10^3/uL; Monocyte% 5.2 % (0-10); NRBC Flagged by Analyzer 0 % (0-5); Neutrophil % 78.1 % (47-70); Platelet Count 300 K/mm3 (150-450); RBC Distribution Width CV 12.8 % (11.6-14.6); Red Blood Count 3.82 M/mm3 (4.2-5.4); White Blood Count 11.3 K/mm3 (4.4-11.0)
[2020-06-29 12:19] LABS: ALB/GLOB Ratio 0.8 RATIO (0.9-2.4); AST(SGOT) 19 U/L (15-37); Alanine Aminotransfer ALT/SGPT 20 U/L (13-56); Albumin, Serum 3.1 g/dL (3.2-5.0); Alkaline Phosphatase 101 U/L (45-117); Anion Gap 5 (5-15); BUN 5 mg/dL (7-18); BUN/Creat Ratio 9.9 RATIO (10-20); Calcium,Total 8.4 mg/dL (8.5-10.1); Chloride 104 mmol/L (98-107); EST Glomerular Filtration Rate 160 mL/min (>60); Est Glom Filt Rate - Afr Amer 194 mL/min (>60); Estimated Creatinine Clearance 163.82 ml/min; Globulin 4.1 g/dL (2.2-4.2); Glucose 78 mg/dL (74-106); Potassium 4.1 mmol/L (3.5-5.1); Protein, Total 7.2 g/dL (6.4-8.2); Sodium Level 137 mmol/L (136-145)
[2020-06-29 12:24] LABS: Mucous, Urine 0 SEEN /hpf (<or=2+); Red Blood Cells-Urine 0 SEEN /hpf (0-5)
[2020-06-29 12:25] LABS: Color, Urine Straw (Yellow); Glucose, Dipstick Normal (Normal); Ketone-Dipstick Negative (Negative); Leukocyte Esterase-Dipstick Negative /ul (Negative); Nitrite-Dipstick Negative (Negative); Occult Blood-Urine Negative /ul (Negative); Protein-Dipstick Negative (Negative); Urine Bilirubin Dipstick Negative (Negative); Urine Clarity Clear (Clear); Urine Urobilinogen Normal (Normal)
[2020-06-29 12:36] LABS: Bacteria 2+ /hpf (None Seen); Squamous Epithelial Cells - UA 0-5 SEEN /hpf (5-10); White Blood Cells 0-5 SEEN /hpf (0-5)
[2020-06-29 12:51] VITALS: BP 119/83; PULSE 82; RESP 18; O2SAT 98
== END 2020-06-29 12:52 | disposition home or self-care (01) ==
LOC: ED 11:54
PROVIDERS: Emergency Provider Emergency Medicine
DX: R55 Syncope and collapse (principal); S09.90XA Unspecified injury of head, initial encounter; S00.03XA Contusion of scalp, initial encounter; O26.893 Other specified pregnancy related conditions, third trimester; X58.XXXA Exposure to other specified factors, initial encounter; Z3A.00 Weeks of gestation of pregnancy not specified
CPT/HCPCS: 80053; 81001; 85025; 87086; 87088; 93005; 96360; 99284; A4216

== ENCOUNTER → 2020-07-24 14:56 | Outpatient (CLI) | payer MEDICAID, SELFPAY ==
[2020-06-29 11:10] VITALS: BMI 23.8
[2020-07-24 15:58] LABS: Absolute Lymphocyte Count 2.53 X10^3/uL (0.83-4.51); Absolute Neutrophil Count 8.5 X10^3/uL (2.0-7.7); Basophil# 0.06 X10^3/uL; Basophil% 0.5 % (0-1); Eosinophil# 0.12 X10^3/uL; Hemoglobin 11.5 g/dL (12.0-15.0); Lymphocyte # 2.53 X10^3/ul (4.0); Lymphocyte % 20.9 % (19-41); Mean Corp Hgb Conc 32.9 g/dL (32-36); Mean Corpuscular Hgb 30.4 pg (27.0-32.0); Mean Corpuscular Volume 92.6 fL (81-99); Mean Platelet Vol. 10.9 fl (6.2-12.0); Monocyte# 0.77 X10^3/uL; Monocyte% 6.4 % (0-10); NRBC Flagged by Analyzer 0 % (0-5); Neutrophil # 8.51 X10^3/uL (2.7-7.7); Neutrophil % 70.1 % (47-70); Platelet Count 364 K/mm3 (150-450); RBC Distribution Width CV 12.7 % (11.6-14.6); RBC Distribution Width SD 42.9 fl (35.1-43.9); Red Blood Count 3.78 M/mm3 (4.2-5.4); White Blood Count 12.1 K/mm3 (4.4-11.0)
[2020-07-24 16:27] LABS: Glucose Challenge Gest 1H 50g 106 mg/dL (70-140)
== END ==
PROVIDERS: Referring Provider Obstetrics & Gynecology; Visit Provider Obstetrics & Gynecology
DX: Z36.9 Encounter for antenatal screening, unspecified (principal); Z3A.00 Weeks of gestation of pregnancy not specified
CPT/HCPCS: 36415; 82950; 85025

== ENCOUNTER 2020-08-08 07:30 | Outpatient (CLI) | payer MEDICAID, SELFPAY ==
[2020-07-24 15:15] VITALS: BMI 24.5
[2020-08-08 07:45] VITALS: BMI 25.7
[2020-08-08 07:54] VITALS: BP 108/71; PULSE 74; PULSE 75; PULSE 78; TEMP 36.5; O2SAT 97; O2SAT 99
[2020-08-08 08:56] LABS: Bacteria 0 SEEN /hpf (None Seen); Mucous, Urine 0 SEEN /hpf (<or=2+)
[2020-08-08 08:57] LABS: Color, Urine Red (Yellow); Glucose, Dipstick Normal (Normal); Ketone-Dipstick 5 mg/dl (Negative); Leukocyte Esterase-Dipstick 100 /ul (Negative); Nitrite-Dipstick Negative (Negative); Occult Blood-Urine 250 /ul (Negative); Protein-Dipstick 30 mg/dl (Negative); Specific Gravity, Urine 1.015 (1.002-1.030); Urine Bilirubin Dipstick Negative (Negative); Urine Clarity Cloudy (Clear); Urine Urobilinogen 1 mg/dl (Normal)
[2020-08-08 09:08] LABS: Red Blood Cells-Urine > 100 SEEN /hpf (0-5); Squamous Epithelial Cells - UA 0-5 SEEN /hpf (5-10); White Blood Cells 0-5 SEEN /hpf (0-5)
--- NOTE | 2020-08-08 10:23 | OB.TRI.HP_ITS ---
- Problem List (1) Vaginal bleeding Status: Acute (2) Decreased movement Status: Acute History of Present Illness Date of Service: 08/08/20 Was patient seen by the physician?: Yes Reason For Visit: BLEEDING Date of Service: 08/08/20 Final EDUARDO: 10/24/20 Final EDUARDO Source: US <20 weeks Gestational age: 29 Weeks and 0 Days History of Present Illness: Patient is a 24-year-old G1, P0 at 29 weeks gestation who presents for vaginal bleeding. She had one episode of bleeding earlier this morning. Reports that she was using the restroom and passed a pea-sized clot and then noticed bright red blood on the toilet paper when she wiped. Reports that the toilet bowl was fully stained red. Has not had any further bleeding since this point in time. Denies recent intercourse. He does have a history of kidney stones in the past, however does not report any pain like she had when she experienced this. Reports decreased movement. Denies leakage of fluid or contractions. Allergies No Known Allergies Allergy (Verified 08/08/20 07:47) - Pertinent Past Medical History Medical History: Past Medical History (Last Reviewed 07/24/20 @ 15:15 by Josefina Woody) Anxiety (Chronic) Rx zoloft 04/13 and started counseling Kidney stones Ovarian cyst Surgical History: Past Surgical History (Last Reviewed 07/24/20 @ 15:15 by Josefina Woody) Tonsillectomy planned Laboratory Studies: Laboratory Tests 08/08/20 Range/Units 08:00 Urine Color Red (Yellow) Urine Clarity Cloudy (Clear) Urine pH 8.0 (5.0 - 8.0) Ur Specific [place] 1.015 (1.002-1.030) Urine Protein 30 H (Negative) mg/dl Urine Glucose (UA) Normal (Normal) mg/dl Urine Ketones 5 H (Negative) mg/dl Urine Occult Blood 250 H (Negative) /ul Urine Nitrite Negative (Negative) Urine Bilirubin Negative (Negative) mg/dL Urine Urobilinogen 1 H (Normal) mg/dl Ur Leukocyte Esterase 100 H (Negative) /ul Urine RBC > 100 SEEN (0-5) /hpf Urine WBC 0-5 SEEN (0-5) /hpf Ur Squamous Epith Cells 0-5 SEEN (5-10) /hpf Urine Bacteria 0 SEEN (None Seen) /hpf Urine Mucus 0 SEEN (<or=2+) /hpf Review of Systems Constitutional: Denies: Chills, Fever Cardiovascular: Denies: Chest Pain, Edema Respiratory: Denies: Shortness of Breath Gastrointestinal: Reports: Abdominal Pain - mild cramping. Denies: Nausea, Vomiting Gynecological: Reports: Vaginal bleeding. 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 1. Vaginal bleeding No further episodes of bleeding since arrival. Urine does appear red in color. Denies symptoms consistent with kidney stone, so more concern for possibility of UTI. Cervix is closed. NST reactive. UA shows significant leukocytes as well as positive blood so prescription for Macrobid sent to pharmacy. 2. Decreased movement Movement increase since arrival. NST reactive. Multi Select Codes - Visit Charges Office Visit/Consults: [id number] OV L3 Est - Urinary/Genital Urinary/Genital CPT Codes: 36518-60 non-stress test Interp
== END 2020-08-08 09:50 | disposition home or self-care (01) ==
LOC: WPOUT 07:37 → WP 07:38
PROVIDERS: Referring Provider Obstetrics & Gynecology; Visit Provider Obstetrics & Gynecology
DX: O46.93 Antepartum hemorrhage, unspecified, third trimester (principal); O36.8130 Decreased fetal movements, third trimester, not applicable or unspecified; Z3A.29 29 weeks gestation of pregnancy
CPT/HCPCS: 59025; 59050; 81001; 99218; G0378

== ENCOUNTER → 2020-09-04 16:56 | Outpatient (CLI) | payer MEDICAID, SELFPAY ==
[2020-09-04 14:08] VITALS: BMI 27.5
[2020-09-04 18:03] LABS: Amphetamine Urine VISTA NEGATIVE (<1000 ng/mL); Barbiturate Urine VISTA NEGATIVE (< 200 ng/mL); Benzodiazepine Urine VISTA NEGATIVE (< 200 ng/mL); Cocaine Urine VISTA NEGATIVE (< 300 ng/mL); Ecstacy Urine VISTA NEGATIVE (< 500 ng/mL); Methadone Urine VISTA NEGATIVE (< 300 ng/mL); PCP Urine VISTA NEGATIVE (< 25 ng/mL); THC Urine VISTA POSITIVE (< 50 ng/mL); Vista UDS pH Range 7
== END ==
PROVIDERS: Visit Provider Obstetrics & Gynecology
DX: Z34.00 Encounter for supervision of normal first pregnancy, unspecified trimester (principal)
CPT/HCPCS: 80307

== ENCOUNTER → 2020-09-23 13:24 | Outpatient (CLI) | payer MEDICAID, SELFPAY ==
[2020-09-18 16:38] VITALS: BMI 27.5
--- NOTE | 2020-09-23 13:26 | US_ITS ---
STUDY: SECOND AND THIRD TRIMESTER OBSTETRICAL ULTRASOUND REASON FOR EXAM: Female, 24 years old growth LMP: 01/18/2020. TECHNIQUE: Transabdominal TECHNICAL QUALITY: Adequate. PRIOR ULTRASOUND: Comparison is made with prior study dated 03/23/2020. FINDINGS: There is a single intrauterine fetus. The fetus is in a cephalic presentation. There is demonstrated cardiac activity with a heart rate of 133 bpm. There is a normal amniotic fluid volume. The largest amniotic fluid pocket measures 3.3 cm. The amniotic fluid index (CHEKO) is 10.2 cm. The placenta is anterior in location and is not low lying. There are Grade 1 placental changes. The cervix measures 3.9 cm in length. The adnexal regions are not visualized. BIOMETRY: BPD: 8.75 cm: 35 weeks, 2 days HC: 32.5 cm: 36 weeks, 5 days AC: 30.67 cm: 34 weeks, 4 days FL: 6.47 cm: 33 weeks, 2 days CI: 78% FL/BPD: 74% FL/HC: FL/AC: 21% HC/AC: 1.06 age by current US: 35 weeks, 3 days. EDUARDO by current US: 10/25/2020. Estimated weight: 2464 grams, +/- 365 grams, 21.6 %. age by prior US: 34 weeks, 2 days. EDUARDO by prior US: 11/02/2020. Age by LMP: 35 weeks, 4 days. EDUARDO by LMP: 10/24/2020. US/OB Limited With Biometrics IMPRESSION: Single live uterine gestation with mean eustachian age of 34 weeks and 2 days. The measurements obtained today following within the normal expected range. Electronically Signed: Bertin Vang, at 15:52 EST , Service support ,
== END ==
PROVIDERS: Referring Provider Obstetrics & Gynecology; Visit Provider Obstetrics & Gynecology
DX: Z34.00 Encounter for supervision of normal first pregnancy, unspecified trimester (principal)
CPT/HCPCS: 76816

== ENCOUNTER → 2020-10-01 16:32 | Outpatient (CLI) | payer MEDICAID, SELFPAY ==
[2020-10-01 15:41] VITALS: BMI 27.6
== END ==
PROVIDERS: Visit Provider Obstetrics & Gynecology
DX: Z34.00 Encounter for supervision of normal first pregnancy, unspecified trimester (principal)
CPT/HCPCS: 87081

== ENCOUNTER 2020-10-19 11:05 | Outpatient (CLI) | payer MEDICAID, SELFPAY ==
[2020-10-08 15:59] VITALS: BMI 27.5
[2020-10-19 11:13] VITALS: BMI 28.5
[2020-10-19 11:28] VITALS: BP 123/86; PULSE 69; TEMP 36.6; O2SAT 98
[2020-10-19 12:09] LABS: ROM Internal Control Test YES-OK TO RESULT pt. (Internal QC); ROM Patient Test Negative (Negative)
--- NOTE | 2020-10-19 12:55 | OB.TRI.PN ---
Progress Notes Date of Service: 10/19/20 Progress Note: Patient presents for triage evaluation secondary to small loss of fluid FHT: 140 Moderate variability reactive no decelerations category I tracing [place]: Regular-none contractions Assessment and plan: False labor negative ROM plus reactive NST, reassuring maternal and status patient discharged to home to follow-up []. See problem list details for additional plan information. Laboratory Studies: Laboratory Tests 10/19/20 Range/Units 11:40 Vag Amniotic Fld Detect Negative (Negative) Multi Select Codes - Urinary/Genital Urinary/Genital CPT Codes: 81631-39 non-stress test Interp
== END 2020-10-19 12:14 | disposition home or self-care (01) ==
PROVIDERS: Visit Provider Obstetrics & Gynecology
DX: O47.9 False labor, unspecified (principal); Z3A.00 Weeks of gestation of pregnancy not specified
CPT/HCPCS: 59025; 59050; 84112; 99218; G0378

== ENCOUNTER 2020-10-25 00:39 | Inpatient (IN) | payer MEDICAID, SELFPAY ==
[2020-10-23 13:29] VITALS: BMI 27.6
[2020-10-25] VITALS (61 sets, daily range): BP systolic 98–159; BP diastolic 51–110; PULSE 55–109; RESP 16; TEMP 36.2–36.9; O2SAT 92–100; BMI 26.4
[2020-10-25 00:33] LABS: ROM Internal Control Test YES-OK TO RESULT pt. (Internal QC)
[2020-10-25 00:34] LABS: ROM Patient Test POSITIVE (Negative)
[2020-10-25] MEDS: Lactated Ringers 1,000 ML 50 ML IV (00:50)
[2020-10-25 01:10] LABS: Absolute Lymphocyte Count 2.64 X10^3/uL (0.83-4.51); Absolute Neutrophil Count 9.1 X10^3/uL (2.0-7.7); Basophil# 0.04 X10^3/uL; Basophil% 0.3 % (0-1); Eosinophil# 0.07 X10^3/uL; Eosinophils% 0.5 % (0-5); Hematocrit 33.1 % (37-47); Hemoglobin 10.9 g/dL (12.0-15.0); Lymphocyte # 2.64 X10^3/ul (4.0); Lymphocyte % 20.6 % (19-41); Mean Corp Hgb Conc 32.9 g/dL (32-36); Mean Corpuscular Hgb 29.4 pg (27.0-32.0); Mean Corpuscular Volume 89.2 fL (81-99); Mean Platelet Vol. 11.5 fl (6.2-12.0); Monocyte# 0.83 X10^3/uL; Monocyte% 6.5 % (0-10); NRBC Flagged by Analyzer 0 % (0-5); Neutrophil # 9.12 X10^3/uL (2.7-7.7); Neutrophil % 71.3 % (47-70); Platelet Count 294 K/mm3 (150-450); RBC Distribution Width CV 13.4 % (11.6-14.6); RBC Distribution Width SD 43.9 fl (35.1-43.9); Red Blood Count 3.71 M/mm3 (4.2-5.4); White Blood Count 12.8 K/mm3 (4.4-11.0)
[2020-10-25] MEDS: Lactated Ringers 500 ML 999 ML IV ×2 (01:40→04:38)
[2020-10-25] MEDS: Ondansetron 4 MG/2 ML Vial IV ×2 (01:55→06:58)
[2020-10-25] MEDS: fentaNYL-bupivacaine (epidural) 100 ML BAG EPIDURAL ×2 (02:52→07:23)
[2020-10-25 03:01] LABS: Amphetamine Urine VISTA NEGATIVE (<1000 ng/mL); Barbiturate Urine VISTA NEGATIVE (< 200 ng/mL); Benzodiazepine Urine VISTA NEGATIVE (< 200 ng/mL); Cocaine Urine VISTA NEGATIVE (< 300 ng/mL); Ecstacy Urine VISTA NEGATIVE (< 500 ng/mL); Methadone Urine VISTA NEGATIVE (< 300 ng/mL); PCP Urine VISTA NEGATIVE (< 25 ng/mL); THC Urine VISTA POSITIVE (< 50 ng/mL); Vista UDS pH Range 7
[2020-10-25 03:18] LABS: BUP Internal Control LINE = VALID (VALID); Buprenorphine Drug Screen Negative (<10 ng/mL)
[2020-10-25] MEDS: Oxytocin 30 units/NS 500 ml 30 UNITS/500 ML IV.SOLN IV (03:58)
[2020-10-25] MEDS: Amnioinfusion- 0.9% NS 1,000 ML IV.SOLN. 50 ML INTRA-UTER (05:00)
[2020-10-25] MEDS: Lactated Ringers 1,000 ML 200 ML IV (07:23)
[2020-10-25] MEDS: proCHLORPERazine 10 MG/2 ML Vial IV (07:23)
[2020-10-25] MEDS: Oxytocin 30 units/NS 500 ml 30 UNITS/500 ML IV.SOLN 334 UNITS IV (09:39)
[2020-10-25] MEDS: Methylergonovine 0.2 MG/ML Ampul IM (09:43)
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
--- NOTE | 2020-10-25 10:16 | PCM.OPRPT ---
Problem List (1) Active labor at term Status: Acute (2) 37 or more weeks gestation of Status: Acute Comment: electronic test ordered 10/07/20 (scheduled for 1640 on 10/14/20) (3) Gastroesophageal reflux during , antepartum Status: Acute Comment: nausea related, pepcid ordered (4) Influenza vaccination declined Status: Acute Comment: 07/24/2020sc (5) Marijuana abuse Status: Acute Comment: random tox, positive 09/04/20 (6) Supervision of normal first Status: Acute Qualifiers: Comment: PRR EDUARDO 10/24/2020 ba Mulligan BF: Jluis (7) Uterine size date discrepancy Status: Acute Comment: Measuring 31cm at 34 weeks. Growth 09/23- 21% (8) Anxiety Status: Chronic Comment: Rx zoloft 04/13 and started counseling (9) Status: Chronic Qualifiers: Comment: NIPT low risk. Carrier screening negative for 14 out of 14; normal anatomy Vaginal Delivery Maternal Presentation: Active Labor 24-year-old G1 at 40 weeks gestation admitted for rupture of membranes and contractions. Patient made cervical change to complete dilation without augmentation. Amniotic Membrane Rupture Type: Spontaneous at home Amniotic Fluid Description: Clear Final EDUARDO: 10/24/20 Gestational age: 40 Weeks and 1 Days Date of Procedure: 10/25/20 Pre-Operative Diagnosis: Term , active labor Post-Operative Diagnosis: Same Surgery/ Procedure Performed: Spontaneous Vaginal Delivery Type of Anesthesia: Epidural Description of Procedure: Patient began pushing and delivered the head in the SHAHID presentation. The head was delivered atraumatically and no nuchal cord was noted. The anterior and posterior shoulders delivered without complication followed by the rest of the and the infant was placed on the maternal abdomen. Delayed cord clamping was employed for approximately 60 seconds. Cord was clamped and cut and gentle traction was applied to the cord and the placenta delivered spontaneously immediately following it was noted to be intact with three-vessel cord. The perineum and vagina were inspected and a second-degree perineal and first-degree periurethral laceration were noted and repaired in the standard fashion using 3-0 Vicryl repeat suture. EBL was 200 cc. Patient and tolerated delivery well. Presentation: Vertex, SHAHID Placental Delivery Description: Spontaneous Placenta Disposition: [facility] Cord Vessel Description: 3 Vessels Cord Entanglement: None Estimated Blood Loss: 200 A gender: Male Episiotomy Description: None Laceration: Midline, Periurethral Extnsion/lac, Perineal Extension/lac Medications given after delivery: IV Pitocin, IM Methergin Complications: None Multi Select Codes - Urinary/Genital Urinary/Genital CPT Codes: 81930 Vaginal Delivery+ PP Care([facility])
--- NOTE | 2020-10-25 10:19 | DCINST_ITS ---
Discharge Diet: No Restrictions Discharge Activity: Return to Normal Activity, May not drive while taking narcotic pain medications., May Shower May resume sexual activity in: 4-6 weeks Additional Activity Instructions:: Nothing in the vagina for 4-6 weeks. You may return to work/school in 6 weeks. Call your doctor if your incision/area has: Continuous Slow Oozing, Sudden Increased Bleeding, Increased Pain/ Swelling, Increased Redness, Foul Smelling Discharge Additional Instructions: If you experience any of the following, contact your healthcare provider. * Bleeding that soaks a pad every hour for 2 hours * Fever 100.4 or higher * Unrelieved incision or abdominal pain * Swelling, redness, discharge or bleeding from your incision or episiotomy site * Your incision begins to separate * Problems urinating (including inability to urinate or burning while urinating). * Visual changes * Severe headache * Flu-like symptoms * Pain or redness in one of both of your breasts * Pain, warmth, tenderness or swelling in your legs, especially the calf area * Frequent nausea and vomiting * Symptoms of depression or anxiety If you experience any of the following, call 911 or go to the nearest Emergency Room. * Chest pain * Problems breathing * Seizure activity * Partial or complete paralysis of a body part, slurred speech, weakness or drooping of the face, or a sudden inability to walk or hold your balance Allergies/Adverse Reactions: Allergies No Known Allergies Allergy (Verified 10/23/20 13:29) Medications to take at Discharge Pnv No.95/Ferrous Fum/Folic AC [ Formula] 1 ea PO DAILY 10/25/20 When: Call to make an appointment with your doctor in 6 weeks. If you had elevated Blood Pressure or 4th degree laceration you will need to be seen in 2 weeks. Primary Care Physician: Care Physician,No Primary [Primary Care Provider] - Test Results: Test results from this visit will be discussed in further detail at your follow- up appointment, if applicable.
[2020-10-25] MEDS: Naproxen 250 MG Tablet 500 MG PO (17:48)
[2020-10-25] MEDS: Acetaminophen 500 MG Tablet 1000 MG PO (20:31)
[2020-10-26 03:08] VITALS: BP 92/48; PULSE 72; RESP 14; TEMP 36.4
[2020-10-26] MEDS: Naproxen 250 MG Tablet 500 MG PO (03:10)
--- NOTE | 2020-10-26 07:40 | PCM.PN.OB ---
Patient Problems: Active and Suspected Problems (Last Reviewed 10/23/20 @ 13:28 by Claudia Justice) Active labor at term (Acute) 37 or more weeks gestation of (Acute) electronic test ordered 10/07/20 (scheduled for 1640 on 10/14/20) Uterine size date discrepancy (Acute) Measuring 31cm at 34 weeks. Growth 09/23- 21% Influenza vaccination declined (Acute) 07/24/2020sc Gastroesophageal reflux during , antepartum (Acute) nausea related, pepcid ordered Marijuana abuse (Acute) random tox, positive 09/04/20 Supervision of normal first (Acute) PRR EDUARDO 10/24/2020 ba Mulligan BF: Jluis Subjective: Patient doing well without complaints. Tolerating PO. Ambulating and voiding without difficulty. Bottle feeding well. Denies chest pain, shortness of breath, calf pain/swelling, fevers, chills, lightheadedness. - Physical Exam Vitals/I&O's: Vital Signs Temp Pulse Resp BP Pulse Ox 97.6 F L 72 14 92/48 L 98 10/26/20 03:08 10/26/20 03:08 10/26/20 03:08 10/26/20 03:08 10/25/20 11:55 Oxygen Delivery Method Room Air Weight: 159 lb 2.78 oz Body Mass Index (BMI) 26.4 Intake and Output for Last 24 Hours 10/24/20 10/25/20 10/26/20 23:59 23:59 23:59 Intake Total 3504.50 / 3504.50 Output Total 1969 / 1969 Balance 1534.50 / 1534.50 General: Alert, Oriented x3, Cooperative Abdomen: Soft, Non Tender, Non-Distended - FF below U Current Medications Acetaminophen (Acetaminophen 500 Mg Tablet) 1,000 mg PO Q8H PRN PRN PRN Reason: Pain Score 1-3 Last Admin: 10/25/20 20:31 Dose: 1,000 mg Documented by: Bisacodyl (Bisacodyl 10 Mg Suppository) 10 mg RECTAL UD PRN PRN Reason: If no BM Dibucaine (Dibucaine 30 Gm Tube) 1 applic TOPICAL TID PRN PRN; Protocol PRN Reason: Discomfort Hydrocortisone (Hydrocortisone 2.5% Crm) 1 applic TOPICAL TID PRN PRN; Protocol PRN Reason: Discomfort Methylergonovine Maleate (Methylergonovine 0.2 Mg/Ml Ampul) 0.2 mg IM X1 PRN PRN Reason: Excess bleeding/uterine atony Last Admin: 10/25/20 09:43 Dose: 0.2 mg Documented by: Naproxen (Naproxen 250 Mg Tablet) 500 mg PO Q8H PRN PRN PRN Reason: Pain Score 1-3 Last Admin: 10/26/20 03:10 Dose: 500 mg Documented by: Ondansetron HCl (Ondansetron 4 Mg/2 Ml Vial) 4 mg IV Q4H PRN PRN PRN Reason: Nausea Oxycodone HCl (Oxycodone 5 Mg Tablet) 5 - 10 mg PO Q4H PRN PRN PRN Reason: Pain Score 4-10 Senna/Docusate Sodium (Senna/Docusate Sodium 1 Tablet) 1 - 2 tablet PO DAILY PRN PRN PRN Reason: Constipation Simethicone (Simethicone 80 Mg Tablet) 80 mg PO PCHS PRN PRN Reason: Indigestion/Stomach pain Sodium Chloride (0.9% Saline Lock 10 Ml Syringe) 5 - 15 ml IV UD PRN PRN Reason: SALINE FLUSH Medical Necessity - Tobacco Use Smoking Status: Former smoker Assessment/Plan All Active Problems (Last Reviewed 10/23/20 @ 13:28 by Claudia Justice) Active labor at term (Acute) 37 or more weeks gestation of (Acute) Uterine size date discrepancy (Acute) Influenza vaccination declined (Acute) Gastroesophageal reflux during , antepartum (Acute) Marijuana abuse (Acute) Supervision of normal first (Acute) Decreased movement (Resolved) Vaginal bleeding (Resolved) s/p PPD # 1 1. routine post delivery care 2. bottle feeding- support given 3. rh positive 4. rubella immune 5. home today
[2020-10-26] MEDS: Senna/Docusate Sodium 1 Tablet PO (07:50)
[2020-10-26] MEDS: Acetaminophen 500 MG Tablet 1000 MG PO (07:55)
[2020-10-26 07:56] VITALS: BP 114/77; PULSE 90; RESP 16; TEMP 36.4
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
[2020-10-26] MEDS: Hydrocortisone 2.5% Crm 1 APPLIC TOPICAL (14:05)
[2020-10-26 14:07] VITALS: BP 112/82; PULSE 74; RESP 18; TEMP 36.6
--- NOTE | 2020-10-26 16:30 | CASEMGMT ---
Social Work Labor and Delivery Unit Called children services and spoke with Barbara Arias [phone]. Reported substance exposed infant, as evidenced by positive maternal drug screens and also the baby's urine drug screen positive at time of delivery. Brief maternal and histories provided. Children services made aware of mom and baby discharging today. -MARICRUZ Cornelius, PHOTORESIST PRINTER *Information in this note generated with the [employer] system.*
--- NOTE | 2020-10-30 16:22 | CASEMGMT ---
Social Work Labor and Delivery unit Help me grow referral submitted through the [facility] assisted care web-based referral system. [] No other services requested or indicated. -MARICRUZ Cornelius, BRIM AND CROWN PRESSER. *Information documented in this note generated via [employer] system*
== END 2020-10-26 14:30 | disposition home or self-care (01) | DRG 560 ==
LOC: OBT 00:45 → WP 00:45
PROVIDERS: Admitting Provider Obstetrics & Gynecology; Visit Provider Obstetrics & Gynecology
DX: O99.62 Diseases of the digestive system complicating childbirth (principal); O99.324 Drug use complicating childbirth; F12.10 Cannabis abuse, uncomplicated; O99.344 Other mental disorders complicating childbirth; F41.9 Anxiety disorder, unspecified; Z3A.40 40 weeks gestation of pregnancy; Z37.0 Single live birth; K21.9 Gastro-esophageal reflux disease without esophagitis; O70.1 Second degree perineal laceration during delivery; Z87.891 Personal history of nicotine dependence
CPT/HCPCS: 59025; 59050; 80307; 84112; 85025; 86850; 86900; 86901; 99218; J7030; J7120; G0378; J2405

== ENCOUNTER → 2020-10-29 18:07 | Outpatient (CLI) | payer MEDICAID, SELFPAY | PROVIDERS: Visit Provider Nurse Practitioner Women's Health | DX: R30.9 Painful micturition, unspecified (principal); T81.41XA Infection following a procedure, superficial incisional surgical site, initial encounter | CPT/HCPCS: 87070; 87086; 87088; 87205 ==

== ENCOUNTER → 2020-11-25 16:38 | Outpatient (CLI) | payer MEDICAID, SELFPAY | PROVIDERS: Referring Provider Nurse Practitioner Women's Health; Visit Provider Nurse Practitioner Women's Health | DX: N76.0 Acute vaginitis (principal) | CPT/HCPCS: 87070; 87205 ==

== ENCOUNTER → 2020-12-16 16:45 | Outpatient (CLI) | payer MEDICAID, SELFPAY ==
[2020-12-16 13:28] VITALS: BMI 25.0
[2020-12-21 15:39] LABS: HPV Reflexed? NOT INDICATED
== END ==
PROVIDERS: Referring Provider Obstetrics & Gynecology; Visit Provider Obstetrics & Gynecology
DX: Z12.4 Encounter for screening for malignant neoplasm of cervix (principal)
CPT/HCPCS: 88175; G0145

== ENCOUNTER 2021-01-20 16:15 | Emergency (ER) | payer MEDICAID, SELFPAY ==
[2020-12-16 13:28] VITALS: BMI 25.0
[2021-01-20 16:16] VITALS: BP 138/86; PULSE 87; RESP 18; TEMP 36.4; O2SAT 98; BMI 20.9
--- NOTE | 2021-01-20 17:09 | US_ITS ---
STUDY: FIRST TRIMESTER OBSTETRICAL ULTRASOUND REASON FOR EXAM: Female, 25 years old pelvic pain, home positive--light bleeding. TECHNIQUE: Transvaginal TECHNICAL QUALITY: Adequate. PRIOR ULTRASOUND: None. FINDINGS: There is visualization of a single gestational sac in a normal intrauterine position. The mean sac diameter (MSD) measures 1.36 cm, indicating an estimated gestational age (EGA) of 6 weeks, 1 days. The gestational sac shape is within normal limits. There is a visualized yolk sac. The yolk sac measures 0.38 cm. The placenta is non-visualized. There is visualization of a live embryo. The crown-rump length (CRL) measures 0.72 cm, indicating an estimated gestational age (EGA) of 6 weeks, 5 days. There is demonstrated cardiac activity with a heart rate of 117 bpm. The estimated gestation age (EGA) by US is 6 weeks, 3 days. The estimated date of delivery (EDUARDO) by US is 09/12/2021. The uterus measures 7.9 x 4.8 x 8.1 cm. There is no demonstrated uterine fibroid. There is a subchorionic heterogenous and hyperechoic round focus within the uterine fundus which measures 3.9 x 3.4 x 3.9 cm There is fluid within the cervix. The right ovary measures 3.2 x 1.9 x 2.2 cm. There is no right ovarian cyst. There is no visualized right adnexal mass or complex lesion. The left ovary measures 2.9 x 1.4 x 1.4 cm. There is no left ovarian cyst. There is no visualized left adnexal mass or complex lesion. There is no fluid in the cul de sac. US/Transvaginal w/Preg US IMPRESSION: Single intrauterine with an estimated gestational age by ultrasound of 6 weeks and 3 days. Indeterminate 3.9 x 3.4 x 3.9 cm hyperechoic subchorionic rounded focus within the uterine fundus possibly reflects a subchorionic hemorrhage, a fibroid or possible adenomyoma. Electronically Signed: Deepika Villar MD at 19:26 EST Tel , Service support ,
[2021-01-20] MEDS: Ondansetron 4 MG/2 ML Vial IV (17:26)
[2021-01-20] MEDS: 0.9% Normal Saline 1,000 ML 999 ML IV (17:26)
[2021-01-20 17:28] LABS: Absolute Lymphocyte Count 1.95 X10^3/uL (0.83-4.51); Absolute Neutrophil Count 5.7 X10^3/uL (2.0-7.7); Basophil# 0.05 X10^3/uL; Basophil% 0.6 % (0-1); Eosinophil# 0.13 X10^3/uL; Eosinophils% 1.6 % (0-5); Hematocrit 40.4 % (37-47); Hemoglobin 13.2 g/dL (12.0-15.0); Lymphocyte # 1.95 X10^3/ul (4.0); Lymphocyte % 23.3 % (19-41); Mean Corp Hgb Conc 32.7 g/dL (32-36); Mean Corpuscular Hgb 28.5 pg (27.0-32.0); Mean Corpuscular Volume 87.3 fL (81-99); Mean Platelet Vol. 11.3 fl (6.2-12.0); Monocyte# 0.54 X10^3/uL; Monocyte% 6.4 % (0-10); NRBC Flagged by Analyzer 0 % (0-5); Platelet Count 323 K/mm3 (150-450); RBC Distribution Width CV 13.5 % (11.6-14.6); RBC Distribution Width SD 43.4 fl (35.1-43.9); Red Blood Count 4.63 M/mm3 (4.2-5.4); White Blood Count 8.4 K/mm3 (4.4-11.0)
[2021-01-20 17:47] LABS: Color, Urine Yellow (Yellow); Glucose, Dipstick Normal (Normal); Leukocyte Esterase-Dipstick 25 /ul (Negative); Nitrite-Dipstick Negative (Negative); Occult Blood-Urine 10 /ul (Negative); Protein-Dipstick 15 mg/dl (Negative); Red Blood Cells-Urine 0 SEEN /hpf (0-5); Specific Gravity, Urine 1.025 (1.002-1.030); Urine Bilirubin Dipstick Negative (Negative); Urine Clarity Clear (Clear); Urine Urobilinogen 1 mg/dl (Normal)
[2021-01-20 17:48] LABS: Ketone-Dipstick 150 mg/dl (Negative)
[2021-01-20 17:51] LABS: Anion Gap 9 (5-15); BUN 9 mg/dL (7-18); BUN/Creat Ratio 14.4 RATIO (10-20); Calcium,Total 9.3 mg/dL (8.5-10.1); Chloride 106 mmol/L (98-107); Creatinine, Serum 0.63 mg/dL (0.55-1.02); EST Glomerular Filtration Rate 124 mL/min (>60); Est Glom Filt Rate - Afr Amer 150 mL/min (>60); Estimated Creatinine Clearance 128.18 ml/min; Glucose 73 mg/dL (74-106); Potassium 3.6 mmol/L (3.5-5.1); Sodium Level 138 mmol/L (136-145)
[2021-01-20 17:54] LABS: Bacteria 1+ /hpf (None Seen); Mucous, Urine 2+ /hpf (<or=2+); Squamous Epithelial Cells - UA 5-10 SEEN /hpf (5-10); White Blood Cells 0-5 SEEN /hpf (0-5)
[2021-01-20 18:08] LABS: hCG Titer Quant., Serum 37035 mIU/mL (1-3)
[2021-01-20 19:00] VITALS: BP 129/78; PULSE 84; RESP 16; O2SAT 99
--- NOTE | 2021-01-20 20:12 | ED.DEP ---
ED Disposition - Plan for ED Patient: Instructions: Care for a Healthy Baby Prescriptions: Ondansetron [Zofran Odt] 4 mg PO Q8H PRN PRN #10 tab PRN Reason: Nausea Prescription Printed
--- NOTE | 2021-01-20 20:14 | ED.VISSUMM ---
- ER Visit Summary Date of Service: 01/20/21 Chief Complaint: Vomiting History of Present Illness: The patient is a 25 F presenting with vomiting and diarrhea. She states she feels dehydrated. This has been ongoing for the past 2 days. She took a home test 1 week ago that was positive. Last menstrual period is unknown. She states she has had mild spotting over the past 2 days. She is . She has an appointment on January 26 to have an elective . Physical Examination: Vitals are stable. Patient is afebrile. Alert no acute distress. HEENT exam is unremarkable. Neck is supple. Lungs are clear and equal bilaterally. Heart is regular rate and rhythm. Abdomen is soft bilateral lower quadrant tenderness with no guarding or rebound Extremities are unremarkable. Skin is warm and dry. Remainder of exam is unremarkable. Emergency Department Course and Treatment: CBC, chemistries unremarkable. Urinalysis unremarkable. hCG 20368. Ultrasound shows single intrauterine with an estimated gestational age by ultrasound of 6 weeks and 3 days. Indeterminate 3.9 x 3.4 x 3.9 cm hyperechoic subchorionic rounded focus within the uterine fundus possibly reflects a subchorionic hemorrhage, a fibroid or possible adenomyoma. On reevaluation, her pain is improved. She has no tenderness in the right lower quadrant. She is advised signs and symptoms for which to return to the ED. Advised to follow-up with her STRATEGIC MARKETING LEADER. Advised return to ED for worsening complaints. Disposition: Discharge home Impression: Vomiting in This note was generated with [employer] dictation software. It may contain incorrect words, spelling, and punctuation that were not noted in review of the chart prior to signing ED Disposition - Plan for ED Patient: Instructions: Care for a Healthy Baby Prescriptions: Ondansetron [Zofran Odt] 4 mg PO Q8H PRN PRN #10 tab PRN Reason: Nausea Prescription Printed
[2021-01-20 20:24] VITALS: BP 114/79; PULSE 87; RESP 14; O2SAT 100
== END 2021-01-20 20:25 | disposition home or self-care (01) ==
LOC: ED 17:03
PROVIDERS: Emergency Provider Emergency Medicine
DX: O21.9 Vomiting of pregnancy, unspecified (principal); Z3A.01 Less than 8 weeks gestation of pregnancy
CPT/HCPCS: 76817; 80048; 81001; 84702; 85025; 86900; 86901; 96361; 96374; 99282; J7030; A4216; J2405

== ENCOUNTER 2021-01-29 02:11 | Emergency (ER) | payer MEDICAID, SELFPAY ==
[2021-01-29 02:11] VITALS: BP 131/109; PULSE 60; RESP 16; TEMP 36.2; O2SAT 97; BMI 22.6
[2021-01-29] MEDS: Ondansetron 4 MG/2 ML Vial IV ×2 (02:43→05:29)
--- NOTE | 2021-01-29 02:44 | ED.VISSUMM ---
- ER Visit Summary Date of Service: 01/29/21 Chief Complaint: Vomiting History of Present Illness: The patient is a 25 F presenting with vomiting for the past day. She states she feels dehydrated. She had a syncopal episode yesterday. She states that she has passed out multiple times in the past when she has been dehydrated. She felt lightheaded and dizzy and then had a syncopal episode. She had no injury. She is currently approximately 7 weeks . She started having vaginal bleeding yesterday similar to a period. She is planning to terminate this but has not taken the medication yet. She complains of pelvic cramping. She had an ultrasound last week which showed intrauterine . She denies diarrhea. Denies fever. Denies other complaints. Physical Examination: Vitals are stable. Patient is afebrile. Alert no acute distress. HEENT exam is unremarkable. Neck is supple. Lungs are clear and equal bilaterally. Heart is regular rate and rhythm. Abdomen is soft nontender nondistended. Pelvic exam: Clot cleared with cotton tip swab. No active bleeding. Extremities are unremarkable. Skin is warm and dry. No focal neurologic deficit. Remainder of exam is unremarkable. Emergency Department Course and Treatment: Patient was given IV fluids, Zofran, morphine. CBC, chemistries unremarkable other than potassium 3.4. hCG quant 09284. Blood type A positive. Pelvic ultrasound is pending and will be checked out to the oncoming physician. Disposition: Pending Impression: Vomiting in , threatened miscarriage This note was generated with [employer] dictation software. It may contain incorrect words, spelling, and punctuation that were not noted in review of the chart prior to signing ED Disposition - Plan for ED Patient: Referrals: Care Physician,No Primary [Primary Care Provider] -
[2021-01-29 02:51] LABS: Anion Gap 9 (5-15); BUN 8 mg/dL (7-18); Calcium,Total 9.2 mg/dL (8.5-10.1); Chloride 107 mmol/L (98-107); Creatinine, Serum 0.67 mg/dL (0.55-1.02); EST Glomerular Filtration Rate 115 mL/min (>60); Est Glom Filt Rate - Afr Amer 139 mL/min (>60); Estimated Creatinine Clearance 121.21 ml/min; Glucose 108 mg/dL (74-106); Potassium 3.4 mmol/L (3.5-5.1); Sodium Level 140 mmol/L (136-145)
[2021-01-29] MEDS: 0.9% Normal Saline 1,000 ML 999 ML IV ×2 (02:51→03:18)
[2021-01-29 02:59] LABS: Hematocrit 38.9 % (37-47); Hemoglobin 12.6 g/dL (12.0-15.0); Mean Corp Hgb Conc 32.4 g/dL (32-36); Mean Corpuscular Hgb 28.3 pg (27.0-32.0); Mean Corpuscular Volume 87.4 fL (81-99); Mean Platelet Vol. 11.5 fl (6.2-12.0); Platelet Count 381 K/mm3 (150-450); RBC Distribution Width CV 13.7 % (11.6-14.6); RBC Distribution Width SD 44.2 fl (35.1-43.9); Red Blood Count 4.45 M/mm3 (4.2-5.4); White Blood Count 10.2 K/mm3 (4.4-11.0)
[2021-01-29 04:13] VITALS: BP 112/66; PULSE 59; RESP 16; O2SAT 99
--- NOTE | 2021-01-29 05:13 | US_ITS ---
STUDY: FIRST TRIMESTER OBSTETRICAL ULTRASOUND REASON FOR EXAM: Female, 25 years old bleeding LMP: TECHNIQUE: Transvaginal TECHNICAL QUALITY: Adequate. PRIOR ULTRASOUND: 01/20/2021 FINDINGS: There is visualization of a single gestational sac in a normal intrauterine position. The mean sac diameter (MSD) measures 26 mm, indicating an estimated gestational age (EGA) of 7 weeks, 4 days. The gestational sac shape is within normal limits. There is a visualized yolk sac. The yolk sac measures 6 mm. The placenta is non-visualized. There is visualization of a live embryo. The crown-rump length (CRL) measures 16 mm, indicating an estimated gestational age (EGA) of 7 weeks, 6 days. There is demonstrated cardiac activity with a heart rate of 120 bpm. The estimated gestation age (EGA) by US is 7 weeks, 5 days. The estimated date of delivery (EDUARDO) by US is 09/12/2021. The uterus measures 9.2 x 8.8 x 4.9 cm. There is no demonstrated uterine fibroid. The cervix is closed. The right ovary measures 3.5 x 3.2 x 2.0 cm. There is no right ovarian cyst. There is no visualized right adnexal mass or complex lesion. The left ovary measures 3.1 x 2.0 x 1.9 cm. There is no left ovarian cyst. There is no visualized left adnexal mass or complex lesion. There is no fluid in the cul de sac. US/Transvaginal w/Preg US IMPRESSION: Living intrauterine of 7 weeks 5 days as described above. Electronically Signed: Moises Keith MD at 8:15 EST Tel , Service support ,
[2021-01-29] MEDS: Morphine 4 MG/ML Syringe IV (05:30)
[2021-01-29 06:05] VITALS: BP 112/66; PULSE 78; RESP 16; O2SAT 100
--- NOTE | 2021-01-29 06:37 | ED.DEP ---
ED Disposition - Plan for ED Patient: Instructions: Bleeding During Early Prescriptions: proMETHazine tablet [Phenergan] 25 mg PO Q6H PRN PRN #10 tab PRN Reason: Nausea Prescription Printed Referrals: Adilene Seay MD [STAFF PHYSICIAN] -
[2021-01-29] MEDS: Metoclopramide 10 MG/2 ML Vial 5 MG IV (07:57)
[2021-01-29 08:02] VITALS: BP 132/82; PULSE 52; RESP 16; O2SAT 98
[2021-01-29 09:27] VITALS: BP 110/63; RESP 16; O2SAT 98
== END 2021-01-29 09:29 | disposition home or self-care (01) ==
LOC: ED 03:09
PROVIDERS: Emergency Provider Emergency Medicine
DX: O21.9 Vomiting of pregnancy, unspecified (principal); O20.0 Threatened abortion; R55 Syncope and collapse; R42 Dizziness and giddiness; Z3A.01 Less than 8 weeks gestation of pregnancy
CPT/HCPCS: 76817; 80048; 84702; 85027; 86900; 86901; 96361; 96374; 96375; 96376; 99283; J7030; A4216; J2405

== ENCOUNTER 2021-01-29 20:33 | Emergency (ER) | payer MEDICAID, SELFPAY ==
[2021-01-29 02:11] VITALS: BMI 22.6
[2021-01-29 20:35] VITALS: BP 115/79; PULSE 68; RESP 16; TEMP 36; O2SAT 96; BMI 22.6
--- NOTE | 2021-01-29 21:31 | ED.DCSUM_ITS ---
History of Present Illness Chief Complaint: Vag Bld, Preg Informant: Patient Onset: Days Context: Gradual Onset Timing: Intermittent Narrative: Patient is a 25-year-old female currently 7 weeks presenting with v aginal bleeding. Patient took Cytotec, 1 dose, 2 days ago. She has had increased bleeding since. She states today she had a steady flow but is now passing large clots. She states she is passed clots the size of an orange. She is having some lower abdominal cramping that was worse this morning but is improved now. Not sure if she is passed products of conception. She has a headache and feels dizzy. Her STORAGE SPECIALIST is Dr. Jewel Quintero. Patient is 3 months as well. Patient is G3, P1. Past Medical History - Allergies and Home Meds Allergies/Adverse Reactions: Allergies No Known Allergies Allergy (Verified 01/29/21 20:34) Primary Care Physician: Adilene Seay MD [STAFF PHYSICIAN] - Surgical History: no surgical history Smoking Status: Never smoker Review of Systems General: Denies: Chills, Fever, Sweats Eyes: Denies: Visual changes - bilaterally, Diplopia ENT: Denies: Rhinorrhea, Sore throat Cardiovascular: Denies: Chest pain, Palpitations Respiratory: Denies: Dyspnea, Cough, Dyspnea on exertion Gastrointestinal: Reports: Abdominal pain. Denies: Nausea, Vomiting, Diarrhea, Melena, Hematochezia Genitourinary: Reports: - - vaginal bleeding . Denies: Dysuria, Hematuria, Frequency Musculoskeletal: Denies: Back pain, Extremity Pain Skin: Denies: Rash, Wounds Neurological: Denies: Headache, Weakness, Numbness Physical Exam Vital Signs/Narrative: Vital Signs Temp Pulse Resp BP Pulse Ox 01/29/21 20:35 96.8 F L 68 16 115/79 96 Inital Vital Signs reviewed: Yes General: Well nourished, Well developed, No Acute Distress Head: Normocephalic, Atraumatic Eyes: Perrl, EOMI ENT: Moist mucous membranes, No rhinorrhea Neck: Supple, Nontender, No JVD Cardiovascular: Regular rate, Regular rhythm, No murmurs Respiratory: No distress, CTA bilaterally, Chest nontender Abdomen: Soft, Nontender, Nondistended, Normal bowel sounds : - - Small clot noted in the external genitalia and is very small amount of blood in the vaginal canal. Cervix is open. Back: Nontender, Normal Inspection Extremities: Nontender, No edema Skin: Normal color, No rash, Pallor Neurological: Alert, Oriented x3, Cranial nerves II-XII grossly intact, Normal Strength, Normal Sensation Psychological: Normal affect, Normal Mood Diagnostic/Tx/Re-eval Laboratory Data 01/29/21 01/29/21 21:45 21:45 Hgb 10.7 L Hct 33.1 L HCG, Quant [id number] H - Medical Decision Making Patient is evaluated for increased vaginal bleeding. She is having a miscarriage that was induced medically. She took the first half the medication about 2 days ago. Patient had transvaginal ultrasound less than 24 hours ago in our ER that did show an intrauterine gestation. On my exam patient does not have a significant amount of bleeding. Her os is open and I suspect she is having an inevitable miscarriage. Bedside ultrasound performed by myself showed a heterogenous uterus and did not see any obvious gestational sac. Given that her quant is elevated I suspect that she is having a miscarriage. Patient is given dose of Toradol for pain control. She is given a liter of fluids. She did have a drop in her hemoglobin. This is discussed with OB on-call, Dr. Aguilera, who states that this change is expected with a medical induced carriage. She counseled the patient to return should she soaked through 2 pads an hour for 2 hours in a row or have severe pain does not relieved with Tylenol or ibuprofen. Patient is counseled on signs and symptoms requiring return to the emergency room. Patient verbalizes agreement and understand this plan. Patient discharged home in stable and improved condition. ED Disposition - Plan for ED Patient: Disposition: Home or Assisted Living Diagnosis: Miscarriage Instructions: ED MISCARRIAGE Completed Referrals: Adilene Seay MD [STAFF PHYSICIAN] - Additional Instructions: Return to the ED or call your OB if you soaked through 2 pads an hour for 2 hours in a row or have severe pain not relieved with Tylenol or ibuprofen
[2021-01-29] MEDS: 0.9% Normal Saline 1,000 ML 1000 ML IV (21:51)
[2021-01-29 22:05] LABS: Hematocrit 33.1 % (37-47); Hemoglobin 10.7 g/dL (12.0-15.0)
[2021-01-29 23:11] VITALS: BP 112/81; PULSE 57; RESP 15; O2SAT 97
[2021-01-29] MEDS: Ketorolac 15 MG/ML Vial IV (23:22)
[2021-01-30 00:20] VITALS: BP 112/81; PULSE 51; RESP 15; O2SAT 97
== END 2021-01-30 00:33 | disposition home or self-care (01) ==
PROVIDERS: Emergency Provider Emergency Medicine
DX: O03.9 Complete or unspecified spontaneous abortion without complication (principal); O21.9 Vomiting of pregnancy, unspecified; R42 Dizziness and giddiness; Z3A.01 Less than 8 weeks gestation of pregnancy
CPT/HCPCS: 76817; 80048; 84702; 85014; 85018; 85027; 86900; 86901; 96361; 96374; 96375; 96376; 99283; J7030; A4216; J2405

== ENCOUNTER 2022-10-22 14:50 | Emergency (ER) | payer MEDICAID, SELFPAY ==
[2022-10-22 14:51] VITALS: BP 130/75; PULSE 65; RESP 18; TEMP 36.6; O2SAT 100; BMI 19.1
--- NOTE | 2022-10-22 15:34 | ED.VIS.FEGU ---
HPI HPI - Female History of Present Illness Chief Complaint: Vag Bld, Preg Narrative Narrative: 26-year-old female currently estimated about 7 weeks gestation presenting with spotting. She states has had this for about a week. She is not passing thoughts. She does have some cramping. She states she was seen at [place] emergency room 10/15/2022. She had an ultrasound performed. She states she had blood work as well but does not know any of her levels. She spoke with Dr. Seay who wanted to have her follow-up for repeat ultrasound. She states he was unable to get in. [facility] Medical History Anxiety Kidney stones Ovarian cyst Home Medications ondansetron 4 mg disintegrating tablet 4 mg PO Q8H PRN PRN Nausea #10 tabs 01/20/21 [Rx Last Taken Unknown] promethazine 25 mg tablet 25 mg PO Q6H PRN PRN Nausea #10 tabs 01/29/21 [Rx Last Taken Unknown] Allergy/AdvReac Type Severity Reaction Status Date / Time No Known Allergies Allergy Verified 10/22/22 14:51 Surgical History Tonsillectomy planned Social History adopted: No household members: spouse housing: house current occupational status: unemployed current occupational exposures/hazards: No pets and animals: Yes history of recent travel: No sexually active: Yes Smoking Status: Never smoker second hand exposure: Yes alcohol intake: never substance use type: marijuana seatbelt use: always do you feel safe at home: Yes 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 Constitutional Constitutional ED: Denies chills or fever(s) Eyes Eyes: Denies change in vision ENT ENT ED: Denies rhinorrhea or sore throat Cardiovascular Cardiovascular: Denies chest pain or palpitations Respiratory/Chest Respiratory/Chest: Denies cough or dyspnea Gastrointestinal Gastrointestinal: Denies abdominal pain or constipation Genitourinary Genitourinary ED: Denies dysuria or hematuria Musculoskeletal Musculoskeletal: Denies arthralgias or myalgias Integumentary Denies abscess Neurologic Neurologic: Denies headache(s) or paresthesias Psychiatric Psychiatric: Denies anxiety or depression EXAM Physical Exam Const Vital Signs: 10/22/22 14:51 Temperature 97.8 F Temperature Source Temporal Pulse Rate 65 Respiratory Rate 18 Blood Pressure 130/75 H Blood Pressure Mean 93 Pulse Ox 100 Oxygen Delivery Method Room Air MDM MDM MDM Narrative Medical decision making narrative: I looked at the results for her previous testing in [facility] and there was a transvaginal ultrasound performed which showed a gestational age of 5 weeks 4 days. There was a 4 x 5 x 4 mm subchorionic hemorrhage. There are no heart tones. Bedside ultrasound was used by ED physician. I do believe i can visualize a yolk sac in the uterus but I do not see any activity. I spoke with Dr. Murry who is on-call for her OB. I discussed with her that the patient already had blood work which was normal. She had a urinalysis tested last week and was put on Keflex for bacteria in her urine. Her hCG was 24,000. I did also discuss with her that the patient's most like marijuana. She recommended a urine drug screen and a UA. She did not feel she needed any emergent blood work. She recommended follow-up ultrasound outpatient. This was discussed with the patient she is comfortable with this at this point. Urinalysis showed rare bacteria, no leukocyte esterase, nitrites. 0-5 squamous epithelial cells. Patient on Keflex already from previous visit. Urine drug screen positive for cannabinoids. Patient will be discharged home to follow-up with OB. Impression: 1. Threatened miscarriage 2. Cannabinoid abuse Lab Data Attestation: I reviewed the patient's lab results. Labs: Laboratory Results - last 24 hr 10/22/22 10/22/22 15:43 15:43 Urine Color Yellow Urine Clarity Clear Urine pH 8.0 Ur Specific [place] 1.015 Urine Protein Negative Urine Glucose (UA) Normal Urine Ketones Negative Urine Occult Blood 10 H Urine Nitrite Negative Urine Bilirubin Negative Urine Urobilinogen Normal Ur Leukocyte Esterase 25 H Urine RBC 0 SEEN Urine WBC 0 SEEN Ur Squamous Epith Cells 0-5 SEEN Urine Bacteria RARE Urine Mucus 0 SEEN Urine Opiates Screen NEGATIVE Urine Methadone Screen NEGATIVE Ur Barbiturates Screen NEGATIVE Ur Phencyclidine Scrn NEGATIVE Ur Amphetamines Screen NEGATIVE MDMA (Ecstasy) Screen NEGATIVE U Benzodiazepines Scrn NEGATIVE Urine Cocaine Screen NEGATIVE U Cannabinoids Screen POSITIVE H Ur Drug Screen Comment Discharge Plan Triage Chief Complaint: Vag Bld, Preg ED Provider: Beto Bianchi Dx/Rx/DC Orders Prescriptions: No Action ondansetron 4 MG tablet 4 mg PO Q8H PRN PRN (Reason: Nausea) Qty: 10 0RF promethazine 25 MG tablet 25 mg PO Q6H PRN PRN (Reason: Nausea) Qty: 10 0RF Primary Care Provider: Care Physician,No Primary Referrals: Care Physician,No Primary [Primary Care Provider] -
[2022-10-22 15:47] LABS: Mucous, Urine 0 SEEN /hpf (<or=2+); Red Blood Cells-Urine 0 SEEN /hpf (0-5)
[2022-10-22 16:15] LABS: Color, Urine Yellow (Yellow); Glucose, Dipstick Normal (Normal); Ketone-Dipstick Negative (Negative); Leukocyte Esterase-Dipstick 25 /ul (Negative); Nitrite-Dipstick Negative (Negative); Occult Blood-Urine 10 /ul (Negative); Protein-Dipstick Negative (Negative); Specific Gravity, Urine 1.015 (1.002-1.030); Urine Bilirubin Dipstick Negative (Negative); Urine Clarity Clear (Clear); Urine Urobilinogen Normal (Normal)
[2022-10-22 16:30] LABS: Amphetamine Urine VISTA NEGATIVE (<1000 ng/mL); Barbiturate Urine VISTA NEGATIVE (< 200 ng/mL); Benzodiazepine Urine VISTA NEGATIVE (< 200 ng/mL); Cocaine Urine VISTA NEGATIVE (< 300 ng/mL); Ecstacy Urine VISTA NEGATIVE (< 500 ng/mL); Methadone Urine VISTA NEGATIVE (< 300 ng/mL); PCP Urine VISTA NEGATIVE (< 25 ng/mL); THC Urine VISTA POSITIVE (< 50 ng/mL); Vista UDS pH Range 8
[2022-10-22 16:40] LABS: Bacteria RARE /hpf (None Seen); Squamous Epithelial Cells - UA 0-5 SEEN /hpf (5-10); White Blood Cells 0 SEEN /hpf (0-5)
[2022-10-22 17:01] VITALS: PULSE 69; RESP 15; O2SAT 99
== END 2022-10-22 17:01 | disposition home or self-care (01) ==
PROVIDERS: Emergency Provider Student in an Organized Health Care Education/Training Program; Visit Provider Student in an Organized Health Care Education/Training Program
DX: O20.0 Threatened abortion (principal); Z3A.01 Less than 8 weeks gestation of pregnancy; O99.321 Drug use complicating pregnancy, first trimester; O20.8 Other hemorrhage in early pregnancy; O99.891 Other specified diseases and conditions complicating pregnancy; R82.71 Bacteriuria; Z79.899 Other long term (current) drug therapy
CPT/HCPCS: 80307; 81001; 99282

== ENCOUNTER → 2022-11-25 | Outpatient (CLI) | payer MEDICAID, SELFPAY ==
[2022-11-25 17:50] LABS: Amphetamine Urine VISTA NEGATIVE (<1000 ng/mL); Barbiturate Urine VISTA NEGATIVE (< 200 ng/mL); Benzodiazepine Urine VISTA NEGATIVE (< 200 ng/mL); Cocaine Urine VISTA NEGATIVE (< 300 ng/mL); Ecstacy Urine VISTA NEGATIVE (< 500 ng/mL); Methadone Urine VISTA NEGATIVE (< 300 ng/mL); PCP Urine VISTA NEGATIVE (< 25 ng/mL); THC Urine VISTA POSITIVE (< 50 ng/mL); Vista UDS pH Range 6
[2022-11-28 22:07] LABS: Chlamydia By Nucleic Acid AMP Negative (Negative)
[2022-12-01 21:37] LABS: Gonococcus By Nucleic Acid AMP Negative (Negative)
== END | disposition home or self-care (01) ==
LOC: LABSPEC 16:19
PROVIDERS: Visit Provider Obstetrics & Gynecology
DX: Z34.90 Encounter for supervision of normal pregnancy, unspecified, unspecified trimester (principal)
CPT/HCPCS: 80307; 87086; 87088; 87491; 87591

== ENCOUNTER → 2022-11-28 | Outpatient (CLI) | payer MEDICAID, SELFPAY ==
[2022-11-28 14:43] LABS: NATERA MAILED SPECIMEN
[2022-11-28 16:46] LABS: Absolute Lymphocyte Count 1.35 X10^3/uL (0.83-4.51); Absolute Neutrophil Count 3.4 X10^3/uL (2.0-7.7); Basophil# 0.05 X10^3/uL; Basophil% 0.9 % (0-1); Eosinophils% 3.7 % (0-5); Hematocrit 39.8 % (37-47); Hemoglobin 13.3 g/dL (12.0-15.0); Lymphocyte # 1.35 X10^3/ul (0.83-4.51); Lymphocyte % 25.1 % (19-41); Mean Corp Hgb Conc 33.4 g/dL (32-36); Mean Corpuscular Hgb 30.9 pg (27.0-32.0); Mean Corpuscular Volume 92.3 fL (81-99); Mean Platelet Vol. 11.4 fl (6.2-12.0); Monocyte# 0.34 X10^3/uL; Monocyte% 6.3 % (0-10); NRBC Flagged by Analyzer 0 % (0-5); Neutrophil # 3.42 X10^3/uL (2.7-7.7); Neutrophil % 63.8 % (47-70); Platelet Count 303 K/mm3 (150-450); RBC Distribution Width SD 44.3 fl (35.1-43.9); Red Blood Count 4.31 M/mm3 (4.2-5.4); White Blood Count 5.4 K/mm3 (4.4-11.0)
[2022-11-28 18:10] LABS: HIV - WCH Non-Reactive (Nonreactive); Hepatitis B Surface Antigen Non-Reactive (Nonreactive); Hepatitis C Antibody Non-Reactive (Nonreactive); Rubella IgG Reactive (Nonreactive); Syphilis Antibodies Non-reactive
== END | disposition home or self-care (01) ==
LOC: LAB 13:40
PROVIDERS: Referring Provider Obstetrics & Gynecology; Visit Provider Obstetrics & Gynecology
DX: Z34.81 Encounter for supervision of other normal pregnancy, first trimester (principal)
CPT/HCPCS: 36415; 85025; 86703; 86762; 86780; 86803; 86850; 86900; 86901; 87340

== ENCOUNTER → 2022-12-07 | Outpatient (CLI) | payer MEDICAID, SELFPAY | END | disposition home or self-care (01) | LOC: LABSPEC 13:22 | PROVIDERS: Visit Provider Registered Nurse | DX: N89.8 Other specified noninflammatory disorders of vagina (principal) | CPT/HCPCS: 87070; 87205 ==

== ENCOUNTER 2023-01-31 19:34 | Emergency (ER) | payer MEDICAID, SELFPAY ==
[2023-01-31 19:35] VITALS: BP 110/77; PULSE 93; RESP 15; TEMP 37.2; O2SAT 100; BMI 20.2
--- NOTE | 2023-01-31 19:47 | ED.VIS.GI ---
HPI HPI - GI History of Present Illness Chief Complaint: Nausea/Vomiting/Diarrhea Informant: patient Abdominal Pain/Flank Pain Onset: Days (4) Context: Sudden Onset Timing: Continuous Quality: Cramping Location: Diffuse Worsened by: Nothing Relieved by: Nothing Nausea/Vomiting/Emesis GI Symptom: Positive for Nausea and Vomiting Onset: Days (4) Quality: Positive for Nonbilious; Negative for Blood streaks, Coffee ground or Hematemesis Diarrhea/Melena/Hematochezia GI Symptom: Positive for Diarrhea; Negative for Melena or Hematochezia Onset: Days (4) Associated Symptoms Associated Symptoms: Negative for Dysuria, Frequency or Hematuria Narrative Narrative: Patient presents with nausea, vomiting, and diarrhea that has been constant for the past 4 days. Patient states her nausea and vomiting is improving but her diarrhea has been persistent. Patient states she feels like she is dehydrated. Patient admits to some diffuse cramping across her abdomen. Patient states nothing makes it better nothing makes it worse. Patient denies any abnormal vaginal bleeding or discharge. Patient states she has noted some movement. Patient states she is approximately 20 weeks . Patient denies any hematemesis or coffee-ground emesis. Patient denies any melena or hematochezia. Patient states she has not contacted her [employer] physician today. [facility] Medical History Anxiety Kidney stones Ovarian cyst Home Medications prochlorperazine maleate 10 mg tablet (Compazine) 10 mg PO Q8H PRN nausea and vomiting #90 tabs 11/25/22 [Rx Last Taken Unknown] Allergy/AdvReac Type Severity Reaction Status Date / Time No Known Allergies Allergy Verified 01/31/23 19:39 Surgical History Tonsillectomy planned Social History adopted: No household members: spouse housing: house current occupational status: unemployed current occupational exposures/hazards: No pets and animals: Yes history of recent travel: No sexually active: Yes Smoking Status: Never smoker second hand exposure: Yes alcohol intake: never substance use type: marijuana seatbelt use: always do you feel safe at home: Yes 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 Constitutional Constitutional ED: Reports chills, subjective and sweats; Denies fever(s) Eyes Eyes: Denies blurry vision or change in vision ENT ENT ED: Denies rhinorrhea or sore throat Cardiovascular Cardiovascular: Denies chest pain or palpitations Respiratory/Chest Respiratory/Chest: Denies cough or dyspnea Gastrointestinal Gastrointestinal: Reports abdominal pain, diarrhea, nausea and vomiting; Denies melena Genitourinary Genitourinary ED: Denies dysuria or hematuria Musculoskeletal Musculoskeletal: Denies back pain or neck pain Integumentary Denies abscess or rash Neurologic Neurologic: Reports headache(s); Denies weakness Allergic/Immunologic Allergic/Immunologic ED: Denies mouth swelling or urticaria EXAM Physical Exam Const Vital Signs: 01/31/23 19:35 Temperature 99.0 F Temperature Source Temporal Pulse Rate 93 Respiratory Rate 15 Blood Pressure 110/77 Blood Pressure Mean 88 Pulse Ox 100 Oxygen Delivery Method Room Air Positive well nourished and well developed General Appearance ED: well developed HEENT Reports moist mucous membranes Neck supple and no JVD Resp normal respiratory effort and clear to auscultation bilaterally Cardio regular rate, regular rhythm and no murmurs GI normal to inspection, nondistended, normoactive bowel sounds Palpation: soft and tender epigastric, LLQ, RLQ, LUQ, RUQ, periumbilical and suprapubic; Negative for guarding or rebound tenderness present Extremity normal to inspection General Extremety ED: Negative for edema or tenderness General Extremity: Negative for edema Neuro oriented x3, CN's II-XII intact bilaterally and no sensory deficits noted Sensorium / Orientation: alert Motor Exam: strength 5/5 throughout Psych mental status grossly normal Skin no rashes or lesions noted MDM MDM MDM Narrative Medical decision making narrative: Differential diagnosis includes dehydration, acute kidney injury, electrolyte abnormality, urinary tract infection, hyperemesis gravidarum, gastroenteritis, and pyelonephritis. CBC will be obtained to assess for leukocytosis and anemia. Basic metabolic profile will be obtained to assess for renal function and electrolyte abnormality. Urinalysis will be obtained to assess for urinary tract infection. Lab Data Attestation: I reviewed the patient's lab results. Lab results narrative: CBC was reviewed and was within normal limits. Basic metabolic profile was reviewed and was within normal limits. Labs: Laboratory Results - last 24 hr 01/31/23 01/31/23 19:50 19:50 WBC 9.1 RBC 4.17 L Hgb 13.2 Hct 38.3 MCV 91.8 MCH 31.7 MCHC 34.5 RDW Std Deviation 45.9 H RDW Coeff of Lili 13.5 Plt Count 269 MPV 10.3 Immature Gran % (Auto) 0.400 Neut % (Auto) 78.8 H Lymph % (Auto) 10.5 L [place] % (Auto) 8.7 Eos % (Auto) 1.2 Baso % (Auto) 0.4 Absolute Neuts (auto) 7.2 Absolute Lymphs (auto) 0.95 Nucleated RBC % 0 Sodium 137 Potassium 3.5 Chloride 105 Carbon Dioxide 24.0 Anion Gap 8 BUN 6 L Creatinine 0.43 L Estim Creat Clear Calc 173.20 Est GFR (MDRD) Af Amer 226 Est GFR (MDRD) Non-Af 187 BUN/Creatinine Ratio 13.9 Glucose 80 Calcium 8.6 Treatment and Re-Evaluation :: Patient was given IV fluids and Zofran here. Patient is feeling better on reevaluation. [employer] nurse was in to evaluate the patient and documented heart tones of 150. Patient does not need to go to the OB unit unless something else would develop. Patient feels better on reevaluation. Patient wants to go home. Patient was instructed to start with small amounts of liquids more frequently. Patient was instructed to follow-up with her primary care physician and [employer] in 5 to 7 days. Patient understood and was agreeable with the plan. All questions were answered. Discharge Plan Triage Chief Complaint: Nausea/Vomiting/Diarrhea ED Provider: Blu Lundy Dx/Rx/DC Orders Clinical Impression: Nausea and vomiting, Instructions: ED Vomiting (Adult) Prescriptions: No Action prochlorperazine maleate [Compazine] 10 mg tablet 10 mg PO Q8H PRN (Reason: nausea and vomiting) Qty: 90 3RF Primary Care Provider: Care Physician,No Primary Referrals: Adilene Seay MD [Med Staff - Active Staff] - 3-5 Days Care Physician,No Primary [Primary Care Provider] - Disposition Disposition: Home, Self Care
[2023-01-31] MEDS: Ondansetron 4 MG/2 ML Vial IV (19:58)
[2023-01-31] MEDS: 0.9% Normal Saline 1,000 ML 1000 ML IV ×2 (19:59→20:59)
[2023-01-31 20:05] LABS: Absolute Lymphocyte Count 0.95 X10^3/uL (0.83-4.51); Absolute Neutrophil Count 7.2 X10^3/uL (2.0-7.7); Basophil# 0.04 X10^3/uL; Basophil% 0.4 % (0-1); Eosinophil# 0.11 X10^3/uL; Eosinophils% 1.2 % (0-5); Hematocrit 38.3 % (37-47); Hemoglobin 13.2 g/dL (12.0-15.0); Lymphocyte # 0.95 X10^3/ul (0.83-4.51); Lymphocyte % 10.5 % (19-41); Mean Corp Hgb Conc 34.5 g/dL (32-36); Mean Corpuscular Hgb 31.7 pg (27.0-32.0); Mean Corpuscular Volume 91.8 fL (81-99); Mean Platelet Vol. 10.3 fl (6.2-12.0); Monocyte# 0.79 X10^3/uL; Monocyte% 8.7 % (0-10); NRBC Flagged by Analyzer 0 % (0-5); Neutrophil # 7.16 X10^3/uL (2.7-7.7); Neutrophil % 78.8 % (47-70); Platelet Count 269 K/mm3 (150-450); RBC Distribution Width CV 13.5 % (11.6-14.6); RBC Distribution Width SD 45.9 fl (35.1-43.9); Red Blood Count 4.17 M/mm3 (4.2-5.4); White Blood Count 9.1 K/mm3 (4.4-11.0)
--- NOTE | 2023-01-31 20:15 | ED.RN ---
OB NURSE Edward CORONA IN ROOM TO ASSESS PT AND OBTAIN HEART TONES. PER OB NURSE PT DOES NOT NEED TO GO TO OB AFTER DC FROM ED UNLESS PROBLEMS DEVELOP.
[2023-01-31 20:20] LABS: Anion Gap 8 (5-15); BUN 6 mg/dL (7-18); BUN/Creat Ratio 13.9 RATIO (10-20); Calcium,Total 8.6 mg/dL (8.5-10.1); Chloride 105 mmol/L (98-107); Creatinine, Serum 0.43 mg/dL (0.55-1.02); EST Glomerular Filtration Rate 187 mL/min (>60); Est Glom Filt Rate - Afr Amer 226 mL/min (>60); Glucose 80 mg/dL (74-106); Potassium 3.5 mmol/L (3.5-5.1); Sodium Level 137 mmol/L (136-145)
--- NOTE | 2023-01-31 23:42 | NURSING ---
FHR 150s per doppler. Abdomen palpates soft. No contractions palpated by Edward Archer RN at bedside or reported per patient. Denies decrease in movement. Labor precautions discussed with patient. Intstructed wehen to come to [facility] or contact provider. Patient denies questions or concerns.
== END 2023-01-31 21:22 | disposition home or self-care (01) ==
PROVIDERS: Emergency Provider Emergency Medicine; Visit Provider Emergency Medicine
DX: O21.9 Vomiting of pregnancy, unspecified (principal); O99.322 Drug use complicating pregnancy, second trimester; F12.90 Cannabis use, unspecified, uncomplicated; Z3A.20 20 weeks gestation of pregnancy
CPT/HCPCS: 80048; 85025; 96361; 96374; 99283; J7030; A4216; J2405

== ENCOUNTER → 2023-03-08 | Outpatient (CLI) | payer MEDICAID, SELFPAY ==
--- NOTE | 2023-03-08 12:43 | US_ITS ---
STUDY: SECOND AND THIRD TRIMESTER OBSTETRICAL ULTRASOUND - LIMITED REASON FOR EXAM: Female, 27 years old previa follow up LMP: September 02, 2022. PRIOR ULTRASOUND: None. TECHNIQUE: Transabdominal and Transvaginal TECHNICAL QUALITY: Adequate. FINDINGS: There is a single intrauterine fetus. The fetus is in a cephalic presentation. There is demonstrated cardiac activity with a heart rate of 157 bpm. There is a normal amniotic fluid volume. The largest amniotic fluid pocket measures 5 cm x 7.7 cm. The amniotic fluid index (CHEKO) is within normal limits. The placenta is posterior in location and is not low lying. There are Grade 1 placental changes. The cervix measures 2.8 cm in length. BIOMETRY: Age by LMP: 26 weeks, 5 days. EDUARDO by LMP: June 09, 2023. IMPRESSION: The placenta is posterior in location. No evidence of previa. Electronically Signed: Bertin Vang MD at 15:48 EDT , STUDY: FIRST TRIMESTER OBSTETRICAL ULTRASOUND REASON FOR EXAM: Female, 27 years old. Cervical length. LMP: September 02, 2022 TECHNIQUE: Transvaginal TECHNICAL QUALITY: Adequate. PRIOR ULTRASOUND: None. FINDINGS: Cervical length measures 2.8 cm. US/OB Limited (No Biometrics) IMPRESSION: Cervical length measures 2.8 cm. Electronically Signed: Bertin Vang MD at 15:49 EDT ,
== END | disposition home or self-care (01) ==
LOC: US 12:42
PROVIDERS: Referring Provider Obstetrics & Gynecology; Visit Provider Obstetrics & Gynecology
DX: O44.00 Complete placenta previa NOS or without hemorrhage, unspecified trimester (principal); Z3A.00 Weeks of gestation of pregnancy not specified
CPT/HCPCS: 76815; 76817

== ENCOUNTER → 2023-03-16 | Outpatient (CLI) | payer MEDICAID, SELFPAY ==
[2023-03-16 10:49] LABS: Absolute Lymphocyte Count 1.49 X10^3/uL (0.83-4.51); Absolute Neutrophil Count 7.2 X10^3/uL (2.0-7.7); Basophil# 0.04 X10^3/uL; Basophil% 0.4 % (0-1); Eosinophil# 0.19 X10^3/uL; Hematocrit 33.4 % (37-47); Lymphocyte # 1.49 X10^3/ul (0.83-4.51); Lymphocyte % 15.6 % (19-41); Mean Corp Hgb Conc 32.9 g/dL (32-36); Mean Corpuscular Hgb 31.7 pg (27.0-32.0); Mean Corpuscular Volume 96.3 fL (81-99); Mean Platelet Vol. 10.3 fl (6.2-12.0); Monocyte# 0.56 X10^3/uL; Monocyte% 5.8 % (0-10); NRBC Flagged by Analyzer 0 % (0-5); Neutrophil # 7.24 X10^3/uL (2.7-7.7); Neutrophil % 75.6 % (47-70); Platelet Count 325 K/mm3 (150-450); RBC Distribution Width CV 13.3 % (11.6-14.6); Red Blood Count 3.47 M/mm3 (4.2-5.4); White Blood Count 9.6 K/mm3 (4.4-11.0)
[2023-03-16 10:59] LABS: Glucose Challenge Gest 1H 50g 118 mg/dL (70-140)
[2023-03-16 11:33] LABS: HIV - WCH Non-Reactive (Nonreactive); Syphilis Antibodies Non-reactive
== END | disposition home or self-care (01) ==
PROVIDERS: Referring Provider Obstetrics & Gynecology; Visit Provider Obstetrics & Gynecology
DX: O09.90 Supervision of high risk pregnancy, unspecified, unspecified trimester (principal); Z3A.00 Weeks of gestation of pregnancy not specified
CPT/HCPCS: 36415; 82950; 85025; 86703; 86780

== ENCOUNTER → 2023-03-31 | Outpatient (CLI) | payer MEDICAID, SELFPAY ==
[2023-03-31 17:27] LABS: Amphetamine Urine VISTA NEGATIVE (<1000 ng/mL); Barbiturate Urine VISTA NEGATIVE (< 200 ng/mL); Benzodiazepine Urine VISTA NEGATIVE (< 200 ng/mL); Cocaine Urine VISTA NEGATIVE (< 300 ng/mL); Ecstacy Urine VISTA NEGATIVE (< 500 ng/mL); Methadone Urine VISTA NEGATIVE (< 300 ng/mL); PCP Urine VISTA NEGATIVE (< 25 ng/mL); THC Urine VISTA POSITIVE (< 50 ng/mL); Vista UDS pH Range 5
== END | disposition home or self-care (01) ==
LOC: LABSPEC 16:30
PROVIDERS: Referring Provider Obstetrics & Gynecology; Visit Provider Obstetrics & Gynecology
DX: O09.90 Supervision of high risk pregnancy, unspecified, unspecified trimester (principal); Z3A.00 Weeks of gestation of pregnancy not specified
CPT/HCPCS: 80307

== ENCOUNTER → 2023-05-19 | Outpatient (CLI) | payer MEDICAID, SELFPAY | END | disposition home or self-care (01) | PROVIDERS: Referring Provider Obstetrics & Gynecology; Visit Provider Obstetrics & Gynecology | DX: O09.90 Supervision of high risk pregnancy, unspecified, unspecified trimester (principal); Z3A.00 Weeks of gestation of pregnancy not specified | CPT/HCPCS: 87081 ==

== ENCOUNTER → 2023-05-22 | Outpatient (CLI) | payer MEDICAID, SELFPAY ==
--- NOTE | 2023-05-22 11:37 | US_ITS ---
STUDY: SECOND AND THIRD TRIMESTER OBSTETRICAL ULTRASOUND - LIMITED REASON FOR EXAM: Female, 27 years old uterine size-date discrepancy LMP: September 03, 2022. PRIOR ULTRASOUND: Comparison is made with prior study dated March 08, 2023. TECHNIQUE: Transabdominal TECHNICAL QUALITY: Adequate. FINDINGS: There is a single intrauterine fetus. The fetus is in a cephalic presentation. There is demonstrated cardiac activity with a heart rate of 132 bpm. There is a normal amniotic fluid volume. The largest amniotic fluid pocket measures 4.6 cm x 3.7 cm. The amniotic fluid index (CHEKO) is 7.37 cm. The placenta is posterior in location and is not low lying. There are Grade 2 placental changes. The cervical length was not measured due to the head positioning. Length. BIOMETRY: BPD: 9.35 cm: 38 weeks, 0 days HC: 33.97 cm: 39 weeks, 0 days AC: 31.53 cm: 35 weeks, 3 days FL: 6.49 cm: 33 weeks, 3 days Age by LMP: 37 weeks, 2 days. EDUARDO by LMP: June 10, 2023. age by current US: 36 weeks, 5 days. EDUARDO by current US: June 14, 2023. Estimated weight: 2687 grams, +/- 403 grams, 16.4 percentile. US/OB Limited With Biometrics IMPRESSION: Single live uterine gestation with a mean gestational age of 36 weeks and 5 days. Electronically Signed: Bertin Vang MD at 12:42 EDT ,
== END | disposition home or self-care (01) ==
LOC: US 11:37
PROVIDERS: Referring Provider Obstetrics & Gynecology; Visit Provider Obstetrics & Gynecology
DX: O26.843 Uterine size-date discrepancy, third trimester (principal); Z3A.00 Weeks of gestation of pregnancy not specified
CPT/HCPCS: 76816

== ENCOUNTER → 2023-05-25 | Outpatient (CLI) | payer MEDICAID, SELFPAY ==
[2023-05-25 14:27] LABS: Amphetamine Urine VISTA NEGATIVE (<1000 ng/mL); Barbiturate Urine VISTA NEGATIVE (< 200 ng/mL); Benzodiazepine Urine VISTA NEGATIVE (< 200 ng/mL); Cocaine Urine VISTA NEGATIVE (< 300 ng/mL); Ecstacy Urine VISTA NEGATIVE (< 500 ng/mL); Methadone Urine VISTA NEGATIVE (< 300 ng/mL); PCP Urine VISTA NEGATIVE (< 25 ng/mL); THC Urine VISTA POSITIVE (< 50 ng/mL); Vista UDS pH Range 7
== END | disposition home or self-care (01) ==
PROVIDERS: Referring Provider Advanced Practice Midwife; Visit Provider Advanced Practice Midwife
DX: Z34.90 Encounter for supervision of normal pregnancy, unspecified, unspecified trimester (principal); F12.10 Cannabis abuse, uncomplicated
CPT/HCPCS: 80307

== ENCOUNTER 2023-06-06 17:32 | Inpatient (IN) | payer MEDICAID, SELFPAY ==
[2023-06-06] VITALS (15 sets, daily range): BP systolic 120–131; BP diastolic 60–90; PULSE 69–94; TEMP 36–37.1; O2SAT 90–100; BMI 24.6
[2023-06-06] MEDS: Lactated Ringers 1,000 ML 50 ML IV (18:25)
--- NOTE | 2023-06-06 18:47 | HP.PCM.OB_ITS ---
HPI - General General Date of Admission: 06/06/23 Date of Service: 06/06/23 HPI Narrative ROBERT ANGULO, is a 27 F who presents at 39.3 weeks for augmentation of labor. in office today Maternal Data Information EDUARDO Calculator Estimated Delivery Date Method Current WG Current Estimate 06/10/23 LMP (Certain) 39w 3d Final EDUARDO: 06/10/23 Final EDUARDO Source: US >20 weeks Gestational age: 39.3 weeks [facility] Medical History (Updated 06/06/23 @ 18:52 by Kaylie Keyes CNM) Anxiety Kidney stones Ovarian cyst Home Medications prochlorperazine maleate 10 mg tablet (Compazine) 10 mg PO Q8H PRN nausea and vomiting #90 tabs 11/25/22 [Rx Last Taken Unknown] multivit-min no.71-iron fum 28 mg-folate no.1 1 mg-dha 300 mg capsule (PNV- Welch) cap PO 03/16/23 [History Last Taken Unknown] famotidine 20 mg tablet (Pepcid) 20 mg PO DAILY #30 tabs 04/28/23 [Rx Last Taken Unknown] Allergy/AdvReac Type Severity Reaction Status Date / Time No Known Allergies Allergy Verified 06/06/23 15:15 Surgical History Tonsillectomy planned Social History adopted: No household members: spouse housing: house current occupational status: unemployed current occupational exposures/hazards: No pets and animals: Yes history of recent travel: No sexually active: Yes Smoking Status: Never smoker second hand exposure: Yes alcohol intake: never substance use type: marijuana seatbelt use: always do you feel safe at home: Yes 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 Date Name GA/Weeks Outcome Route Bth Weight Gen Labor Lgth Anesthesia Del Locatn Provider FOB 10/25/20 Isaak 40 live - full term Male [facility] Deejay Visit Details Expected Delivery Route/Plan Labor Preferences- CB/BF classes: no labor support person: Jluis labor intervention preferences: pain management options preferred: epidural cut cord/dad catch: yes : no PP control planned: discussed discussed possible routes of delivery and associated risks: [] special requests: [] Plans Covid status: declines Flu vaccine: declines Tdap vaccine: declines Rhogam: NA LARC form signed: yes Problem list reviewed and updated with the most current plan of care details and appropriate orders placed. Relevant counseling for the gestational age provided. Continue routine care and follow up unless otherwise noted in visit notes/problem list details OB Flowsheet Initial Weight: Not Recorded Date -?-?-?-?-?-?-?--?-?-?-?-?- EGA Weight BP Urine Prot -?-?-?-?-?-?-?-?-?-?-?-?- Glucose FHR FuHt Pres Dilation -?-?-?-?-?-?-?-?-?-?-?-?- Effaced St Visit Note 12/07/22 -?-?-?-?-?-?-?-?-?-?-?-?- 13w 4d 113 lb 115/81 Negative -?-?-?-?-?-?-?-?-?-?-?-?- Negative 156 -?-?-?-?-?-?-?-?-?-?-?-?- LC- having incre ased green discharge with vaginal itching.speculum today with minimal discharge, brown spotting. +FHT, no cramping. rapid bv/trich, vaginal cx. high suspicion for resolving yeast infection s/p abx.will wait for cx prior to treatment 12/21/22 -?-?-?-?-?-?-?-?-?-?-?-?- 15w 4d 116 lb 2 oz 111/73 Nega tive -?-?-?-?-?-?-?-?-?-?-?-?- Negative 145 -?-?-?-?-?-?-?-?-?-?-?-?- JV- no lof, vagi nal bleeding, or cramping. discussed THC use. 01/16/23 -?-?-?-?-?-?-?-?-?-?-?-?- 19w 2d 121 lb 2 oz 114/69 Nega tive -?-?-?-?-?-?-?-?-?-?-?-?- Negative 145 -?-?-?-?-?-?-?-?-?-?-?-?- Lc- no lof/vb/cr amping. reviewed anatomy scan. 02/14/23 -?-?-?-?-?-?-?-?-?-?-?-?- 23w 3d 132 lb 2 oz 120/79 Nega tive -?-?-?-?-?-?-?-?-?-?-?-?- Negative 140 24 -?-?-?-?-?-?-?-?-?-?-?-?- SM- no vb lof go od fm no reuglar ctx 03/16/23 -?-?-?-?-?-?-?-?-?-?-?-?- 27w 5d 141 lb 8 oz 112/72 Nega tive -?-?-?-?-?-?-?-?-?-?-?-?- Negative 154 26 -?-?-?-?-?-?-?-?-?-?-?-?- MH-No Vb, LOF. G ood FM. Nl 28 wk labs, [facility] 03/31/23 -?-?-?-?--?-?-?-?-?-?-?-?- 29w 6d 139 lb 8 oz 117/73 Nega tive -?-?-?-?-?-?-?-?-?-?-?-?- Negative 146 29 -?-?-?-?-?-?-?-?-?-?-?-?- JV- declines tda ap. resolved previa and CVI. no lof, vaginal bleeding, or dec fm. JV- pt's FOB is apparently h igh during appt and room smells of marijuana. Tox collected. She declines tdap. resolved previa and CVI. no lof, vaginal bleeding, or dec fm. 04/12/23 -?-?-?-?-?-?-?-?-?-?-?-?- 31w 4d 141 lb 2 oz 114/74 Trac e -?-?-?-?-?-?-?-?-?-?-?-?- Negative 138 31 -?-?-?-?-?-?-?-?-?-?-?-?- LC-no vb/ctx/lof . good fm. discussed marijuana use in , encouraged cessation. 04/28/23 -?-?-?-?-?-?-?-?-?-?-?-?- 33w 6d 145 lb 119/79 Negative -?-?-?-?-?-?-?-?-?-?-?-?- Negative 145 33 -?-?-?-?-?-?-?-?-?-?-?-?- SM- no vb lof go od fm no regular ctx start pepcid 05/10/23 -?-?-?-?-?-?-?-?-?-?-?-?- 35w 4d 149 lb 6 oz 122/83 -?-?-?-?-?-?-?-?-?-?-?-?- 155 34 -?-?-?-?-?-?-?-?-?-?-?-?- JV- no lof, vagi nal bleeding, or dec fm. FOB still appears high. patient does not. labor precautions discussed. 05/19/23 -?-?-?-?-?-?-?-?-?-?-?-?- 36w 6d 146 lb 6 oz 134/81 Nega tive -?-?-?-?-?-?-?-?-?-?-?-?- Negative 140 33 Cephalic 0 .5 -?-?-?-?-?-?-?-?-?-?-?-?- 20 -1 Sm- no vb lof good fm no regular ctx gbs will get growth scan Sm- no vb lof good fm no reg ular ctx gbs will get growth scan. Had a discussion with Sm- no vb lof good fm no reg ular ctx gbs will get growth scan. Had a discussion with patient regarding her concerns about how there have been comments made about her boyfriend appearing high. She states he wasn't high when he was here previously, that he gets anxious in social situations sometimes, wanting to be open about this and hoping it doesn't affect the delivery experience. Discussion with patient about safety for her and the baby but reassurance given about delivery experience. 05/25/23 -?-?-?-?-?-?-?-?-?-?-?-?- 37w 5d 148 lb 118/74 Negative -?-?-?-?-?-?-?-?-?-?-?-?- Negative 125 34 Cephalic -?-?-?-?-?-?-?-?-?-?-?-?- KW-+fm, no lof/v b/regular ctx. discussed IOL at 39-40 weeks for abnormal US at 16%-consulted with SM. Plan membrane sweep next week 06/02/23 -?-?-?-?-?-?-?-?-?-?-?-?- 38w 6d 146 lb 126/87 Negative -?-?-?-?-?-?-?-?-?-?-?-?- Negative 135 35 Cephalic 2 -?-?-?-?-?-?-?-?-?-?-?-?- 60 -1 MAY gordon no lof/vb/ctx. membranes swept today.IOL between 39-40weeks. consent signed. 06/06/23 -?-?-?-?-?-?-?-?-?-?-?-?- 39w 3d 1+ -?-?-?-?-?-?-?-?-?-?-?-?- Negative 125 37 5 -?-?-?-?-?-?-?-?-?-?-?-?- 70 -1 KW-+ fm, n o lof/vb/ctx. membrane sweep today. planning to come back in at 5 pm for augmentation of labor NST FHR Rate Baby A Baseline: 125 Variability:: Moderate Accelerations:: 15 x 15 Decelerations:: None NST Reactive:: Yes FHR Category:: Category I Uterine Activity:: 4-6 minutes ROS Constitutional Constitutional: Denies change in weight, fatigue, fever(s), headache(s), poor appetite or weakness Eyes Eyes: Denies blurry vision, change in vision, floaters, seeing flashes or spots in vision ENT HEENT: Denies dizziness, headache(s), loss taste/smell or sore throat Cardiovascular Cardiovascular: Denies chest pain, dizziness, dyspnea, irregular heart rhythm, lightheadedness, palpitations or rapid heart rate Respiratory/Chest Respiratory/Chest: Denies change in mental status, chest tightness, cough, dyspnea or breast pain Gastrointestinal Gastrointestinal: Denies anorexia, chewing difficulty, constipation, diarrhea or weight changes Genitourinary Genitourinary: Denies difficulty urinating, dysuria, flank pain, genital pain, urinary frequency or urinary urgency Musculoskeletal Musculoskeletal: Denies back pain, difficulty walking, extremity pain, joint pain, muscle cramps or muscle weakness Integumentary Integumentary: Denies lesions or unusual bruising Neurologic Neurologic: Denies abnormal movements, abnormal speech, dizziness, numbness, seizure-like activity, syncope or weakness Psychiatric Psychiatric: Denies behavioral changes, change in appetite, confusion, depression, homicidal ideation, suicidal ideation or suicidal thoughts Endocrine Endocrinology: Denies excessive sweating, polydipsia or polyuria Hematologic/Lymphatic Hematologic/Lymphatic: Denies anemia Allergic/Immunologic Allergic/Immunologic: Denies itchy eyes, lip swelling, throat swelling, tongue swelling or wheezing Vital Signs Vital Signs Vital Signs: 06/06/23 17:47 06/06/23 17:47 Pulse Rate 94 Blood Pressure 128/83 H BP Systolic 128 BP Diastolic 83 Physical Exam Const alert, oriented x3 and no apparent distress General Appearance: cooperative Orientation / Consciousness: awake HEENT normocephalic Neck full ROM Lymph Lymphatic: no lymphadenopathy noted Chest inspection of chest normal Resp normal respiratory effort and normal air movement Effort and Inspection: able to speak in complete sentences and symmetric chest movement GI soft to palpation and non-tender Inspection: gravid Palpation: soft; Negative for tender external exam normal Manual OB Exam: presentation cephalic, dilated 5, effaced 80 and station - 1 Back/Spine normal to inspection Extremity normal to inspection and full ROM Skin no rashes or lesions noted Psych mental status grossly normal Appearance: grossly normal Speech: normal speech Labs Labs Labs: Blood Type A POSITIVE Antibody Screen NEGATIVE Hct 33.4 % (37-47) L Hgb 11.0 g/dL (12.0-15.0) L Obstetrics US Syphilis Total Ab Non-reactive Rubella IgG Antibody Reactive (Nonreactive) Hep Bs Antigen Non-Reactive (Nonreactive) Chlamydia DNA (ALEXYS) Negative (Negative) Neisseria gonorrhoeae DNA (ALEXYS) Negative (Negative) HIV 1&2 Antibody Non-Reactive (Nonreactive) Glucose 1 Hr 50 gm 118 mg/dL (70-140) Rhogam given: No Miscellaneous Test Assessment & Plan (1) Active labor at term: COMMENT: augmentation due to advanced dilatation PLAN: Patient presents to labor and delivery for labor augmentation, plan expectant management for , pitocin/AROM PRN if needed. Pain management: plans epidural. GBS negative. Management of any complications: none I have reviewed the [facility] and made any clinically relevant updates. (2) : QUALIFIERS: Weeks of gestation: 39 weeks Qualified Code(s): Z3A.39 - 39 weeks gestation of COMMENT: GBS neg, NIPT low risk, CVI benign finding recheck in 4 wks. nl anatomy, nl growth 36% (3) Uterine size-date discrepancy, third trimester: COMMENT: check growth us. (4) Abnormal ultrasound: COMMENT: AC at 16% FL at 0.4%- Overall 16%. MFM consult. 39-40 week IOL per SM (5) Chronic gastroesophageal reflux disease: COMMENT: pepcid (6) Supervision of high-risk : COMMENT: PRR EDUARDO 06/10/23 ba Mulligan boyfriend Jluis (7) Marijuana abuse: COMMENT: in past. tox ordered. 1/6 +; 12+; 7/6+ (8) Anxiety: COMMENT: `no meds, zoloft in past. stable Charges/Coding Multi Select Codes Urinary/Genital Urinary/Genital CPT Codes: No Charge
[2023-06-06 18:59] LABS: Absolute Lymphocyte Count 1.55 X10^3/uL (0.83-4.51); Absolute Neutrophil Count 8.9 X10^3/uL (2.0-7.7); Basophil# 0.04 X10^3/uL; Basophil% 0.4 % (0-1); Eosinophil# 0.06 X10^3/uL; Eosinophils% 0.5 % (0-5); Hematocrit 35.6 % (37-47); Hemoglobin 11.8 g/dL (12.0-15.0); Lymphocyte # 1.55 X10^3/ul (0.83-4.51); Lymphocyte % 13.9 % (19-41); Mean Corp Hgb Conc 33.1 g/dL (32-36); Mean Corpuscular Hgb 30.3 pg (27.0-32.0); Mean Corpuscular Volume 91.3 fL (81-99); Mean Platelet Vol. 11.7 fl (6.2-12.0); Monocyte# 0.57 X10^3/uL; Monocyte% 5.1 % (0-10); NRBC Flagged by Analyzer 0 % (0-5); Neutrophil # 8.91 X10^3/uL (2.7-7.7); Neutrophil % 79.6 % (47-70); Platelet Count 328 K/mm3 (150-450); RBC Distribution Width CV 14.6 % (11.6-14.6); RBC Distribution Width SD 48.2 fl (35.1-43.9); White Blood Count 11.2 K/mm3 (4.4-11.0)
[2023-06-06 19:13] LABS: ALB/GLOB Ratio 0.6 RATIO (0.9-2.4); AST(SGOT) 22 U/L (15-37); Alanine Aminotransfer ALT/SGPT 16 U/L (13-56); Albumin, Serum 2.6 g/dL (3.2-5.0); Alkaline Phosphatase 159 U/L (45-117); Amphetamine Urine VISTA NEGATIVE (<1000 ng/mL); Anion Gap 8 (5-15); BUN 6 mg/dL (7-18); Barbiturate Urine VISTA NEGATIVE (< 200 ng/mL); Benzodiazepine Urine VISTA NEGATIVE (< 200 ng/mL); Calcium,Total 8.5 mg/dL (8.5-10.1); Chloride 107 mmol/L (98-107); Cocaine Urine VISTA NEGATIVE (< 300 ng/mL); EST Glomerular Filtration Rate 128 mL/min (>60); Ecstacy Urine VISTA NEGATIVE (< 500 ng/mL); Est Glom Filt Rate - Afr Amer 155 mL/min (>60); Glucose 122 mg/dL (74-106); Methadone Urine VISTA NEGATIVE (< 300 ng/mL); PCP Urine VISTA NEGATIVE (< 25 ng/mL); Potassium 3.6 mmol/L (3.5-5.1); Protein, Total 6.6 g/dL (6.4-8.2); Sodium Level 136 mmol/L (136-145); THC Urine VISTA POSITIVE (< 50 ng/mL); Vista UDS pH Range 6
[2023-06-06 19:30] LABS: Syphilis Antibodies Non-reactive
[2023-06-06] MEDS: Oxytocin 15 Units/NS 250ml 15 UNITS/250 ML IV.SOLN 2 UNITS IV (19:41)
[2023-06-06] MEDS: Methylergonovine 0.2 MG/ML Ampul IM (22:06)
[2023-06-06] MEDS: Lidocaine 1% (20 ml mdv) 20 ML Vial INFILT (22:11)
[2023-06-06] MEDS: Oxytocin 15 Units/NS 250ml 15 UNITS/250 ML IV.SOLN 83 UNITS IV (22:23)
--- NOTE | 2023-06-06 22:36 | EX.PCM.OBRPT ---
Assessment & Plan (1) Vaginal delivery: COMMENT: KW. 39.3 Ba Alberto (2) : QUALIFIERS: Weeks of gestation: 39 weeks Qualified Code(s): Z3A.39 - 39 weeks gestation of COMMENT: GBS neg, NIPT low risk, CVI benign finding recheck in 4 wks. nl anatomy, nl growth 36% (3) Anxiety: COMMENT: `no meds, zoloft in past. stable (4) Marijuana abuse: COMMENT: in past. tox ordered. /6 +; /12+; 7/6+ (5) Supervision of high-risk : COMMENT: PRR EDUARDO 06/10/23 ba Alberto PC Isaak boyfriencarolin Bazzi (6) Uterine size-date discrepancy, third trimester: COMMENT: check growth us. (7) Abnormal ultrasound: COMMENT: AC at 16% FL at 0.4%- Overall 16%. MFM consult. 39-40 week IOL per SM (8) Active labor at term: COMMENT: augmentation due to advanced dilatation Maternal Data Information EDUARDO Calculator Estimated Delivery Date Method Current WG Current Estimate 06/10/23 LMP (Certain) 39w 3d Final EDUARDO: 06/10/23 Final EDUARDO Source: US >20 weeks Gestational age: 39.3 weeks Vaginal Delivery Maternal Presentation Maternal Presentation: Active Labor Maternal Presentation: Progressed well to 10cm dilated and made steady progress with effective maternal pushing. Delivered the head in SHAHID presentation. The head was delivered atraumatically and a loose nuchal cord was identified and was easily reduced over the 's head. The anterior and posterior shoulders delivered without complication followed by the rest of the and the was placed on the maternal abdomen. Delayed cord clamping was employed for approximately 3 minutes. Cord was clamped and cut and gentle traction was applied to the cord and the placenta delivered spontaneously. Uterus was noted to be boggy and Methergine IM given, bladder drained for 300cc. Immediately following, it was noted to be intact with a 3 vessel cord. The perineum and vagina were inspected and noted to have a first degree laceration which was repaired with 3-0 Vicryl in the usual fashion. EBL was 300cc. Patient and tolerated delivery well. Apgars 9/9. Dr Seay notified of vaginal delivery and orders reviewed. Physician agrees with current plan of care. Operative Information Date of Procedure: 06/06/23 Pre-Operative Diagnosis: See AP comments Post-Operative Diagnosis: Same Surgery / Procedure Performed: Spontaneous Vaginal Delivery commissioner of officials #1: Kaylie Keyes Type of Anesthesia: None Drain: Juárez to straight drain Estimated Blood Loss: 300 Time of Delivery: 21:57 Findings Presentation: SHAHID Amniotic Membrane Rupture Type: Spontaneous Amniotic Fluid Description: Clear Placental Delivery Description: Spontaneous Placenta Disposition: [facility] Cord Vessel Description: 3 Vessels Cord Entanglement: Around neck x 1, loose Nuchal Cord Compression: With compression A Gender: Male (1 minute): 9 (5 minute): 9 Delayed Cord Clamping: Yes Post Vaginal Delivery Medications Given After Delivery: IV Pitocin and IM Methergin Episiotomy Description: None Laceration: 1st degree Complication Complications: None Multi Select Codes Urinary/Genital Urinary/Genital CPT Codes: 80297 Vaginal Delivery+ PP Care([facility])
[2023-06-06] MEDS: Ibuprofen 600 MG Tablet PO (23:47)
[2023-06-06] MEDS: Benzocaine/Lanolin/Aloe Vera 1 SPRAY EACH TOPICAL (23:47)
[2023-06-07] VITALS (7 sets, daily range): BP systolic 101–122; BP diastolic 68–86; PULSE 66–80; RESP 16; TEMP 36.2–37.2; O2SAT 97–98
[2023-06-07] MEDS: Acetaminophen 500 MG Tablet 1000 MG PO ×3 (01:31→23:08)
[2023-06-07] MEDS: 0.9% Saline Lock 10 ML Syringe IV (01:31)
[2023-06-07] MEDS: Senna/Docusate Sodium 1 Tablet PO (05:57)
[2023-06-07] MEDS: Ibuprofen 600 MG Tablet PO ×3 (05:57→23:08)
--- NOTE | 2023-06-07 07:37 | PCM.PN.OB ---
Subjective Subjective Patient doing well without complaints. Tolerating PO. Ambulating and voiding without difficulty. Feeding well. Denies chest pain, shortness of breath, calf pain/swelling, fevers, chills, lightheadedness. She delivered her baby boy Miles just before 10 pm last night and had a 1st degree laceration repair. She is not sure about feeling ready to go home today and understands baby has monitoring for at least 24 hours. She wants her baby circumcised. Objective Data Objective Data Vital Signs: Vital Signs Temp Pulse Resp BP Pulse Ox O2 Del Method 97.9 F 72 16 113/71 90 Room Air 06/07/23 04:09 06/07/23 04:09 06/07/23 04:09 06/07/23 04:09 06/06/23 23:05 06/07/23 04:09 Oxygen Delivery Method Room Air Weight: 147 lb 14.883 oz Body Mass Index (BMI) 24.6 Intake & Output: Intake and Output for Last 24 Hours 06/05/23 06/06/23 06/07/23 23:59 23:59 23:59 Intake Total 440.83 / 440.83 250 / 250 Output Total 650 / 650 300 / 300 Balance -209.17 / -209.17 -50 / -50 Lab / Micro Data 06/06/23 18:20 06/06/23 18:20 Labs: Laboratory Results - last 24 hr 06/06/23 18:20: WBC 11.2 H, RBC 3.90 L, Hgb 11.8 L, Hct 35.6 L, MCV 91.3, MCH 30.3, MCHC 33.1, RDW Std Deviation 48.2 H, RDW Coeff of Lili 14.6, Plt Count 328, MPV 11.7, Immature Gran % (Auto) 0.500, Neut % (Auto) 79.6 H, Lymph % (Auto) 13.9 L, Harper % (Auto) 5.1, Eos % (Auto) 0.5, Baso % (Auto) 0.4, Absolute Neuts (auto) 8.9 H, Absolute Lymphs (auto) 1.55, Nucleated RBC % 0, Sodium 136, Potassium 3.6, Chloride 107, Carbon Dioxide 21.0, Anion Gap 8, BUN 6 L, Creatinine 0.60, Est GFR (MDRD) Af Amer 155, Est GFR (MDRD) Non-Af 128, BUN/Creatinine Ratio 10.0, Glucose 122 H, Calcium 8.5, Total Bilirubin 0.20, AST 22, ALT 16, Alkaline Phosphatase 159 H, Total Protein 6.6, Albumin 2.6 L, Globulin 4.0, Albumin/Globulin Ratio 0.6 L, Urine Opiates Screen NEGATIVE, Urine Methadone Screen NEGATIVE, Ur Barbiturates Screen NEGATIVE, Ur Phencyclidine Scrn NEGATIVE, Ur Amphetamines Screen NEGATIVE, MDMA (Ecstasy) Screen NEGATIVE, U Benzodiazepines Scrn NEGATIVE, Urine Cocaine Screen NEGATIVE, U Cannabinoids Screen POSITIVE H, Ur Drug Screen Comment , Syphilis Total Ab Non-reactive, Blood Type A POSITIVE, Antibody Screen NEGATIVE ROS Constitutional Constitutional: Denies chills, fatigue, fever(s), poor appetite or weakness Eyes Eyes: Denies blurry vision, change in vision, seeing flashes or spots in vision ENT HEENT: Denies dizziness, headache(s), loss taste/smell or sore throat Cardiovascular Cardiovascular: Denies chest pain, dizziness, dyspnea, irregular heart rhythm, palpitations or rapid heart rate Respiratory/Chest Respiratory/Chest: Denies chest tightness, cough, dyspnea or breast pain Gastrointestinal Gastrointestinal: Denies abdominal pain, constipation or vomiting Genitourinary Genitourinary: Denies dysuria or flank pain Musculoskeletal Musculoskeletal: Denies difficulty walking, joint pain, limited range of motion or numbness Neurologic Neurologic: Denies abnormal movements, abnormal speech, dizziness, numbness, seizure-like activity or syncope Psychiatric Psychiatric: Denies anxiety, behavioral changes, change in appetite, confusion, depression or suicidal thoughts Physical Exam Const alert, oriented x3 and no apparent distress General Appearance: cooperative and comfortable Resp normal respiratory effort Cardio regular rate GI normal to inspection, nondistended, normoactive bowel sounds GI Narrative: uterus is firm below umbilicus Palpation: soft Back/Spine no CVA tenderness and thoraco-lumbar ROM normal Extremity normal to inspection, no clubbing, cyanosis or edema, no calf tenderness and no pedal edema Psych mental status grossly normal, thought process normal, cooperative, affect normal, speech normal, activity/motor behavior normal, denies homicidal ideation and denies suicidal ideation Assessment & Plan (1) Vaginal delivery: COMMENT: KW. 39.3 Boy Miles PLAN: s/p PPD # 1 1. routine post delivery care 2. breast feeding- support given 3. rh positive 4. rubella immune 5. THC abuse history- no longer using 6. Anxiety - stable 7. plan for dc to home tomorrow.
[2023-06-08 02:50] VITALS: BP 93/72; PULSE 64; RESP 16; TEMP 36.8; O2SAT 98
--- NOTE | 2023-06-08 07:51 | PN.OBGYN_ITS ---
Subjective Subjective Patient doing well without complaints. Tolerating PO. Ambulating and voiding without difficulty. feeding well. Denies chest pain, shortness of breath, calf pain/swelling, fevers, chills, lightheadedness. Objective Data Objective Data Vital Signs: Vital Signs Temp Pulse Resp BP Pulse Ox O2 Del Method 98.3 F 64 16 93/72 98 Room Air 06/08/23 02:50 06/08/23 02:50 06/08/23 02:50 06/08/23 02:50 06/08/23 02:50 06/08/23 02:50 Oxygen Delivery Method Room Air Weight: 147 lb 14.883 oz Body Mass Index (BMI) 24.6 Intake & Output: Intake and Output for Last 24 Hours 06/06/23 06/07/23 06/08/23 23:59 23:59 23:59 Intake Total 440.83 / 440.83 250 / 250 Output Total 650 / 650 300 / 300 Balance -209.17 / -209.17 -50 / -50 Lab / Micro Data 06/06/23 18:20 06/06/23 18:20 ROS Constitutional Constitutional: Reports systems reviewed and no addt'l complaints, except as documented Cardiovascular Cardiovascular: Reports systems reviewed and no addt'l complaints, except as documented Respiratory/Chest Respiratory/Chest: Reports systems reviewed and no addt'l complaints, except as documented Gastrointestinal Gastrointestinal: Reports systems reviewed and no addt'l complaints, except as d ocumented Physical Exam Const alert, oriented x3 and no apparent distress HEENT Head and Scalp: atraumatic Resp normal respiratory effort GI soft to palpation and non-tender Bimanual Exam - Vag & Uterus: uterus non-tender Uterus Palpation: uterus fundus firm (below Umbilicus) Assessment & Plan (1) Vaginal delivery: COMMENT: KW. 39.3 Boy Remy PLAN: Plan s/p PPD # 2 1. routine post delivery care 2. bottle feeding- support given 3. rh positive 4. rubella immune
--- NOTE | 2023-06-08 07:52 | PCM.DC ---
Discharge Instructions Diet Discharge Diet: No restrictions Activity Discharge Activity: Return to Normal Activity, May Not Drive (while taking narcotic pain medications.) and May Shower May resume sexual activity in: 4-6 weeks Dressing / Incision Call your doctor if your incision/area has: Continuous Slow Oozing, Sudden Increased Bleeding, Increased Pain/ Swelling, Increased Redness and Foul Smelling Discharge Follow Up Care Please Follow Up With: Adilene Seay MD When: Call [phone] to make an appointment with your doctor in 6 weeks. If you had elevated blood pressure or 4th degree laceration, you will need to be seen in 2 weeks. Test Results: Test results from this visit will be discussed in further detail at your follow-up appointment, if applicable. Discharge Plan Admission Admit Date/Time: 06/06/23 17:32 Attending Provider: Kaylie Keyes Primary Care Provider: Aranza Anand Primary Discharge Orders/Prescriptions Prescriptions: No Action PNV-[place] 28-1-300 mg capsule 1 cap PO DAILY famotidine [Pepcid] 20 mg tablet 20 mg PO DAILY Qty: 30 6RF Referrals / Follow Up: Care Physician,Aranza Primary [Primary Care Provider] - Disposition Disposition (needs filled in before D/C Order can be placed): Home, Self Care
[2023-06-08 08:42] VITALS: BP 102/78; PULSE 69; RESP 16; TEMP 36.8; O2SAT 98
[2023-06-08] MEDS: Ibuprofen 600 MG Tablet PO (10:39)
[2023-06-08] MEDS: Acetaminophen 500 MG Tablet 1000 MG PO (10:40)
--- NOTE | 2023-06-08 10:44 | CASEMGMT ---
Social Work Assessment Labor and Delivery Unit Patient Address:[address] [place] [address] Phone number: [phone] Date of Referral: 06/06/23 Time of Referral:?2340 Referred By: Dr. Kaylie Keyes Date of Intervention: ??06/08/23 Time of Intervention:? 929 Reason for Referral:? substance abuse MOB with history of marijuana use. Positive urine screens throughout , including time of delivery. Sw completed chart review and acknowledged social work consult due to maternal substance use. Sw presented to bedside and met with mother of baby (KELLY Vargas). Sw introduced self and explained sw role during current hospitalization. History obtained from: medical records and mother of baby (OCTAVIANO)??? Household composition: OCTAVIANO reports that and father of baby (LEO- Jluis Cerda, : 1996) reside together with their older son, Natty Cerda (: 10/25/2020). MOB states that her housing is adequate and safe. Patient's parent/guardian status:?OCTAVIANO is 26 year old female who is to LEO. MOB states that they have been together for 4 years. They were introduced to each other by OCTAVIANO's brother. Winn baby boy is second child to both parents. OCTAVIANO denies safety concerns at home including domestic violence or intimate partner violence. Winn baby boy is Everette Cerda, born 06/06/23. Medical History: OCTAVIANO is 2, para 1 now 2 after delivering baby. OCTAVIANO received routine care with [facility] throughout . Baby was born weighing 6lb 7oz and his apgars were 9 and 9 at one and 5 minutes of life respectfully. No medical concerns or issues reported at this time. Educational Status:?MOB states that she and LEO are both high school graduates. No reports of any learning difficulties or comprehension concerns. Financial Status: OCTAVIANO is a stay at home mom. LEO is gainfully employed outside of the home on his family's farm. Supplies:?MOB reports that they have been able to obtain everything that they need for baby including a safe sleep space, car seat, clothes, diapers and wipes. OCTAVIANO is feeding baby with formula, she is connected to [facility] to help obtain formula. Childcare/Caregiver(s):?MOB will be the primary caregiver to baby. FOB will also be involved. MOB states that she also has family members who are supportive and able to help with childcare when necessary. Transportation:??Both parents have their drivers license and reliable transportation. No transportation barriers at this time. Programs/Agencies Involved: ??MOB is receiving insurance through [employer] MOB is connected to [facility] to help with infant nutrition. Sw discussed [employer] [facility] and benefits of resource now that baby has been born. MOB declines need for resource at this time. ? Children Services/Legal Issues:??? MOB states that Children Services did get involved after she delivered Natty due to her marijuana use during . MOB states that at that time [facility] came to her home and completed their assessment and closed their case. Sw explained need for another [facility] referral at this time due to MOB consistent substance use during . MOB expressed understanding. Behavioral Health Issues: ?? Mental Health History:?MOB states that she has been diagnosed with anxiety and depression. MOB states that she is not currently taking any medications as she prefers to use coping skills to manage her symptoms. MOB states that she was in counseling in the past but is not currently. MOB denies history of SI. Sw discussed signs and symptoms of baby blues and depression and MOB susceptibility of experiencing symptoms as a result of her mental health history. MOB completed [place] Depression Screen, her score was a 0. Sw provided support and list of counseling agencies in [place]. Sw encouraged MOB to get connected to mental health supports if she started to experience any symptoms. MOB expressed understanding. Substance Use History:?MOB disclosed use of marijuana throughout . MOB states that her usage was a result of nausea and difficulty gaining weight. MOB states that she discussed her routine use with Dr. Seay. MOB stated in her mind the benefits outweighed the concerns. MBO states that her last use was a couple of weeks ago and she does not have plans on using again. MOB denies use of any other illicit drugs. MOB states that FOB does not use substances. Family History:??MOB denies any family history of substance use or mental health diagnoses. Drug Screens: Maternal drug screens were completed regularly throughout . MOB had positive THC urine screens on: 10/22/22, 11/25/22, 03/31/23, 05/25/23 and 06/06/23. Baby's urine screen was negative. Meconium pending. Family/Social Stressors:? MOB does not report any stressors at this time. MOB states that she is really excited that baby is born. MOB states that she is excited to see her older son, Natty as a big brother. Support Systems: MOB reports that her family and FOB family are big supports for them. MOB states that if she needs help with anything, including managing mental health symptoms or childcare she has lots of supports she is able to talk to. Depression/Shaken Baby/Safe Sleeping:? Sw provided literature and education on signs and symptoms of baby blues and depression. Sw also educated MOB on ABCs of safe sleep and shaken baby prevention. MOB expressed understanding. ASSESSMENT:? Sw met with MOB alone in room. MOB states that she was aware that social work would be coming to meet with her and told FOB to step out so assessment could be completed. MOB open and talkative during social work assessment. MOB maintained eye contact during conversation and her mood and affect were appropriate for topics discussed. MOB open and receptive to sw involvement and support. MOB expressed knowledge of signs and symptoms of baby blues and post depression to be on the look out for. MOB expressed understanding of need for sw to make referral to [facility] due to positive urine screens for THC throughout . Safe Plan of Care for infant related to substance use:?MOB states that she has no desire to use THC now that baby has been born. Rerferrals: Sw made referral to [facility] due to MOB urine screen being positive throughout . Sw spoke to hotline screener: Madeleine Ruff. PLAN:? MOB and baby to be discharged today. ?No other services requested or indicated. Juan Fields, LADLE HANDLER, DIGITAL ACCOUNT MANAGER
[2023-06-08 11:12] VITALS: BP 111/85; PULSE 80; RESP 16; TEMP 36.8; O2SAT 97
== END 2023-06-08 11:55 | disposition home or self-care (01) | DRG 560 ==
PROVIDERS: Admitting Provider Advanced Practice Midwife; Referring Provider Advanced Practice Midwife; Visit Provider Advanced Practice Midwife
DX: O26.843 Uterine size-date discrepancy, third trimester (principal); Z37.0 Single live birth; O99.344 Other mental disorders complicating childbirth; F12.10 Cannabis abuse, uncomplicated; K21.9 Gastro-esophageal reflux disease without esophagitis; F41.9 Anxiety disorder, unspecified; O99.62 Diseases of the digestive system complicating childbirth; O99.324 Drug use complicating childbirth; O69.1XX0 Labor and delivery complicated by cord around neck, with compression, not applicable or unspecified; O99.892 Other specified diseases and conditions complicating childbirth; N85.8 Other specified noninflammatory disorders of uterus; O70.0 First degree perineal laceration during delivery; Z3A.39 39 weeks gestation of pregnancy
CPT/HCPCS: 59025; 59050; 80053; 80307; 85025; 86780; 86850; 86900; 86901; 99221; J7120; A4216; G0378

== ENCOUNTER 2023-12-29 16:14 | Emergency (ER) | payer MEDICAID, SELFPAY ==
[2023-12-29 16:14] VITALS: BP 125/91; PULSE 80; RESP 16; TEMP 36.7; O2SAT 100; BMI 20.7
--- OUTSIDE RECORDS SUMMARY | 2023-12-29 17:42 | XMS RPT_ITS | CCD ---
Author Name Unknown Address [address] [place] [address] Organization [facility] Care Team Providers Care Photograph Inspector Name Role Phone ISRRAEL BLAS Unavailable Unavailcon e PHYSICIAN, NOT RECORDED Primary Care Physician Linsey JHA MD, CATHLEEN Aguayo Attending Unavailable PHYSICIAN, NOT RECORDED Primary Care Unavaila ble Unavailable Primary Care Provider UnavailSTEVEN Chen Primary Care Unavailable JAMES ODOM Attending Unavailable RONY GUADARRAMA Referring Unavailab STEVEN Del Valle Primary Care Unavailable LADY FRIED Attending Unavailable RONY GUADARRAMA Referring Unavailab JAMES Woodard Attending Unavailable RONY GUADARRAMA Referring Unavailab STEVEN Del Valle Primary Care Unavailable Allergies Allergy Classification Reported Allergen(s) Allergy Type Date of Onset Reaction(s) Facility (5 sources) [facility]; Translations: [CALAMINE] Drug Allergy 03-26-2008 Ellen [facility] Other [place] [facility] Medications Current Medications Medication Drug Class(es) Dates Sig (Normalized) Sig (Original) amoxicillin 875 mg / clavulanate 125 mg oral tablet (2 sources) Penicillin-class Antibacterial Start: 11-08-2023 End: 11-15-2023 take 1 tablet by mouth twice daily amoxicillin-clav ulanate potassium (AUGMENTIN) 875-125 mg per tablet Take 1 tablet by mouth two times a day for 7 days. 14 tablet 0 11/08/2023 11/15/2023 Active Completed/Discontinued Medications Medication Drug Class(es) Dates Sig (Normalized) Sig (Original) ibuprofen 800 mg oral tablet (3 sources) Nonsteroidal Anti-inflammatory Drug Start: 12-29-2019 take 1 tablet by mouth every eight hours as needed ibuprofen (MOTRIN) 800 mg tablet Take 1 tablet by mouth every 8 hours as needed for Pain or Fever for up to 30 doses. 30 tablet 0 12/29/2019 Active Problems Active Problems Problem Classification Problem Date Documented Da te Episodic/Chronic Abdominal pain (1 source) Abdominal pain; Translations: [Unspecified abdominal pain] Onset: 10-16-2022 Episodic Anxiety disorders (1 source) Anxiety disorder, unspecified; Translations: [Anxiety disorder, unspecified] Onset: 06-01-2017 Chronic Disorders of teeth and jaw (1 source) Toothache; Translations: [Other specified disorders of teeth and supporting structures] Episodic Other and delivery including normal (1 source) ; Translations: [ state, incidental] Onset: 10-16-2022 Episodic Other upper respiratory infections (1 source) Chronic sinusitis, unspecified; Translations: [Unspecified sinusitis (chronic)] 11-08-2023 Chronic Otitis media and related conditions (1 source) Acute left otitis media; Translations: [Otitis media, unspecified, left ear] 11-08-2023 Episodic Spondylosis; intervertebral disc disorders; other back problems (1 source) Backache; Translations: [Dorsalgia, unspecified] 12-26-2023 Episodic Urinary tract infections (1 source) Urinary tract infectious disease; Translations: [Urinary tract infection, site not specified] Onset: 10-16-2022 Episodic Past or Other Problems Problem Classification Problem Date Documented Da te Episodic/Chronic Fluid and electrolyte disorders (1 source) Hypokalemia; Translations: [Hypokalemia] Onset: 06-01-2017 Episodic Syncope (1 source) Syncope and collapse; Translations: [Syncope and collapse] Onset: 06-01-2017 Episodic Results Test Name Value Interpretation Reference Range Facil ity Vital Signs Date Time Vital Sign Value Performing Clinician Facility 12-26-2023 15:24-0500 Body temperature 98.8 [degF] Estefania Meyers APRN.CNP Work Phone: [facility] 12-26-2023 15:24-0500 Body weight 56.25 kg Estefania Meyers APRN.CNP Work Phone: [facility] 12-26-2023 15:24-0500 Diastolic blood pressure 78 mm[Hg] Estefania Meyers APRN.CNP Work Phone: [facility] 12-26-2023 15:24-0500 Heart rate 74 /min Estefania Pendlebury [employer] SCIENCES INSTRUCTOR.SAND SCREENER Work Phone: [facility] 12-26-2023 15:24-0500 Respiratory rate 18 /min Estefania Pendlebury LIFE SCIENCES INSTRUCTOR.SAND SCREENER Work Phone: [facility] 12-26-2023 15:24-0500 SaO2% (BldA) [Mass fraction] 99 % Estefania Pendlebury LIFE SCIENCES INSTRUCTOR.SAND SCREENER Work Phone: [facility] 12-26-2023 15:24-0500 Systolic blood pressure 121 mm[Hg] Estefania Pendlebury LIFE SCIENCES INSTRUCTOR.SAND SCREENER Work Phone: [facility] 11-08-2023 14:20-0500 Body temperature 98.49 [degF] Naya Jefferson LIFE SCIENCES INSTRUCTOR.SAND SCREENER Work Phone: [facility] 11-08-2023 14:20-0500 Body weight 56.43 kg Naya Jefferson LIFE SCIENCES INSTRUCTOR.SAND SCREENER Work Phone: [facility] 11-08-2023 14:20-0500 Diastolic blood pressure 82 mm[Hg] Naya Jefferson LIFE SCIENCES INSTRUCTOR.SAND SCREENER Work Phone: [facility] 11-08-2023 14:20-0500 Heart rate 80 /min Naya Jefferson LIFE SCIENCES INSTRUCTOR.SAND SCREENER Work Phone: [facility] 11-08-2023 14:20-0500 Respiratory rate 18 /min Naya Jefferson LIFE SCIENCES INSTRUCTOR.SAND SCREENER Work Phone: [facility] 11-08-2023 14:20-0500 SaO2% (BldA) [Mass fraction] 98 % Naya Jefferson LIFE SCIENCES INSTRUCTOR.SAND SCREENER Work Phone: [facility] 11-08-2023 14:20-0500 Systolic blood pressure 128 mm[Hg] Naya Jefferson LIFE SCIENCES INSTRUCTOR.SAND SCREENER Work Phone: [facility] 12-28-2022 17:53-0500 Body temperature 98.49 [degF] Naya Jefferson LIFE SCIENCES INSTRUCTOR.SAND SCREENER Work Phone: [facility] 12-28-2022 17:53-0500 Body weight 52.62 kg Naya Jefferson LIFE SCIENCES INSTRUCTOR.SAND SCREENER Work Phone: [facility] 12-28-2022 17:53-0500 Diastolic blood pressure 70 mm[Hg] Naya Jefferson LIFE SCIENCES INSTRUCTOR.SAND SCREENER Work Phone: [facility] 12-28-2022 17:53-0500 Heart rate 78 /min Naya Jefferson LIFE SCIENCES INSTRUCTOR.SAND SCREENER Work Phone: [facility] 12-28-2022 17:53-0500 Respiratory rate 16 /min Naya Jefferson LIFE SCIENCES INSTRUCTOR.SAND SCREENER Work Phone: [facility] 12-28-2022 17:53-0500 SaO2% (BldA) [Mass fraction] 100 % Naya Jefferson LIFE SCIENCES INSTRUCTOR.SAND SCREENER Work Phone: [facility] 12-28-2022 17:53-0500 Systolic blood pressure 124 mm[Hg] Naya Jefferson LIFE SCIENCES INSTRUCTOR.SAND SCREENER Work Phone: [facility] 10-16-2022 01:20-0500 Diastolic Blood Pressure Non-Invasive 68 1 CATHLEEN JHA MD [facility] 10-16-2022 01:20-0500 Heart rate 75 /min CATHLEEN JHA MD [facility] 10-16-2022 01:20-0500 Respiratory rate 18 /min CATHLEEN JHA MD [facility] 10-16-2022 01:20-0500 Systolic Blood Pressure Non-Invasive 114 1 CATHLEEN JHA MD [facility] 10-15-2022 23:53-0500 Body temperature 98.6 [degF] CATHLEEN JHA MD [facility] 10-15-2022 23:53-0500 Diastolic Blood Pressure Non-Invasive 74 1 CATHLEEN JHA MD [facility] 10-15-2022 23:53-0500 Heart rate 86 /min CATHLEEN JHA MD [facility] 10-15-2022 23:53-0500 Respiratory rate 18 /min CATHLEEN JHA MD [facility] 10-15-2022 23:53-0500 Systolic Blood Pressure Non-Invasive 110 1 CATHLEEN JHA MD [facility] Encounters Encounter Date Encounter Type Care Provider Facility Start: 12-26-2023 End: 12-26-2023 ambulatory Facility:[facility] Start: 12-26-2023 End: 12-26-2023 Office outpatient visit 15 minutes Estefania Meyers APRN.CNP Work Phone: [facility] Plan of Treatment Date Care Activity Detail Author Start: 11-20-2023 Depression Assessment Depression Ass [facility] Start: 07-21-2023 Influenza vaccination Influenza Vacc ine (#1) [facility] Start: 11-20-2022 DEPRESSION ASSESSMENT DEPRESSION ASS [facility] Start: 07-21-2022 Influenza vaccination INFLUENZA (#1) [facility] Start: 02-06-2019 Urine microalbumin profile [facility] Start: 2017 PAP TESTING PAP TESTING [facility] Start: 2017 Screening for malign ant neoplasm of cervix Pap Testing [facility] Start: 2014 HEPATITIS C SCREENING HEPATITIS C [facility] Start: 2014 Hepatitis C screening Hepatitis C [facility] Start: 2014 HIV SCREENING HIV SCREENING [facility] Start: 2014 HIV screening HIV Screening [facility] Start: 2010 PEDS TO ADULT TRANSI TION ANNUAL ASSESSMENT PEDS TO ADULT TRANSITION ANNUAL ASSESSMENT [facility] Start: 08-09-2009 HPV VACCINE (2 - 2-d ose series) HPV VACCINE (2 - 2-dose series) [facility] Start: 2008 PEDS TO ADULT TRANSI TION INITIAL DISCUSSION PEDS TO ADULT TRANSITION INITIAL DISCUSSION [facility] Start: 06-24-1997 COVID-19 VACCINE (#1) COVID-19 VACCI NE (#1) [facility] Immunizations Immunization Date Immunization Notes Care Provider Jareth sanon 08-12-2009 influenza virus vaccine, unspecified formulation Naya Jefferson LIFE SCIENCES INSTRUCTOR.[facility] Work Phone: [facility] 02-06-2009 human papilloma viru s vaccine, quadrivalent Naya Jefferson LIFE SCIENCES INSTRUCTOR.SAND SCREENER Work Phone: [facility] Work Phone: 02-06-2009 tetanus toxoid, redu parag diphtheria toxoid, and acellular pertussis vaccine, adsorbed Naya Jefferson LIFE SCIENCES INSTRUCTOR.SAND SCREENER Work Phone: [facility] Work Phone: 10-25-2007 influenza virus vaccine, unspecified formulation Naya Jefferson LIFE SCIENCES INSTRUCTOR.SAND SCREENER Work Phone: [facility] Work Phone: 09-18-2006 influenza virus vaccine, unspecified formulation Naya Jefferson LIFE SCIENCES INSTRUCTOR.SAND SCREENER Work Phone: [facility] 04-12-2002 measles, mumps and rubella virus vaccine Naya Jefferson LIFE SCIENCES INSTRUCTOR.SAND SCREENER Work Phone: [facility] 04-12-2002 trivalent poliovirus vaccine, live, oral Naya Jefferson LIFE SCIENCES INSTRUCTOR.SAND SCREENER Work Phone: [facility] 03-24-1998 diphtheria, tetanus toxoids and acellular pertussis vaccine Naya Jefferson LIFE SCIENCES INSTRUCTOR.SAND SCREENER Work Phone: [facility] 03-24-1998 haemophilus influenz ae type b vaccine, HbOC conjugate Naya Jefferson LIFE SCIENCES INSTRUCTOR.SAND SCREENER Work Phone: [facility] 03-24-1998 measles, mumps and rubella virus vaccine Naya Jefferson LIFE SCIENCES INSTRUCTOR.SAND SCREENER Work Phone: [facility] 08-29-1997 diphtheria, tetanus toxoids and acellular pertussis vaccine Naya Jefferson LIFE SCIENCES INSTRUCTOR.SAND SCREENER Work Phone: [facility] 08-29-1997 haemophilus influenz ae type b vaccine, HbOC conjugate Naya Jefferson LIFE SCIENCES INSTRUCTOR.SAND SCREENER Work Phone: [facility] 08-29-1997 hepatitis B vaccine, pediatric or pediatric/adolescent dosage Naya Jefferson LIFE SCIENCES INSTRUCTOR.SAND SCREENER Work Phone: [facility] 08-29-1997 trivalent poliovirus vaccine, live, oral Naya Jefferson LIFE SCIENCES INSTRUCTOR.SAND SCREENER Work Phone: [facility] 06-13-1997 diphtheria, tetanus toxoids and acellular pertussis vaccine Naya Jefferson LIFE SCIENCES INSTRUCTOR.SAND SCREENER Work Phone: [facility] 06-13-1997 haemophilus influenz ae type b vaccine, HbOC conjugate Naya Jefferson LIFE SCIENCES INSTRUCTOR.SAND SCREENER Work Phone: [facility] 06-13-1997 trivalent poliovirus vaccine, live, oral Naya Jefferson LIFE SCIENCES INSTRUCTOR.SAND SCREENER Work Phone: [facility] 02-12-1997 diphtheria, tetanus toxoids and acellular pertussis vaccine Naya Jefferson LIFE SCIENCES INSTRUCTOR.SAND SCREENER Work Phone: [facility] 02-12-1997 haemophilus influenz ae type b vaccine, HbOC conjugate Naya Jefferson LIFE SCIENCES INSTRUCTOR.SAND SCREENER Work Phone: [facility] 02-12-1997 hepatitis B vaccine, pediatric or pediatric/adolescent dosage Naya Jefferson LIFE SCIENCES INSTRUCTOR.SAND SCREENER Work Phone: [facility] 02-12-1997 trivalent poliovirus vaccine, live, oral Naya Jefferson LIFE SCIENCES INSTRUCTOR.SAND SCREENER Work Phone: [facility] 1996 hepatitis B vaccine, pediatric or pediatric/adolescent dosage Naya Jefferson LIFE SCIENCES INSTRUCTOR.SAND SCREENER Work Phone: [facility] Payers Date Payer Category Payer Medicaid [id number] 2022 Unknown [id number] 2022 Unknown [id number] 1996 Unknown [id number] 1996 Unknown [id number] 1996 Unknown [id number] 1996 Unknown [id number] Social History Date Type Detail Facility Tobacco smoking status [facility] Sex Assigned At Female [facility] Start: 12-28-2022 Tobacco smoking stat [facility] Ex-smoker [facility] Work Phone: History of tobacco use Current smoker [facility] Work Phone: Start: 12-28-2022 Tobacco use and exposure Smokeless tobacco non-user [facility] Work Phone: Start: 12-28-2022 End: 12-26-2023 Alcohol intake Current drinker of alcohol (finding) [facility] Start: 12-28-2022 Tobacco Comment [facility] Start: 09-02-2018 Alcohol Comment socially [facility] Start: 1995 Sex Assigned At Not on file [facility] Start: 12-28-2022 End: 11-08-2023 History of Social function [facility] Start: 12-28-2022 End: 11-08-2023 Tobacco use panel [facility] PHQ-2 Score 0 [facility] Functional Status Date Assessment Result Facility 10-16-2022 Functional Status Independent [facility]-15-2022 Functional Status Standard Safet y ID band on, Call device within reach, Bed in low position, Wheels locked, Upper/Half-Length side-rails up, Phone within reach, personal items within reach, Visitor at bedside, Safety level maintained [facility] Mental Status Date Assessment Result Facility 10-16-2022 Mental Status Orientation Oriented x 4 [facility] 10-15-2022 Mental Status [facility] Clinical Notes 10-16-2022 to 12-26-2023 Estefania Meyers APRN.SAND SCREENER - 12/26/2023 3:41 PM Naya Cotton APRN.SAND SCREENER - 11/08/2023 2:35 PM Yu Jefferson APRN.SAND SCREENER - 12/28/2022 6:45 PM EST Note Date & Type Note Facility 12-26-2023 Note HNO ID: [id number] Author: ESTEFANIA MEYERS APRN.SAND SCREENER Service: ? Author Type: Nurse Practitioner Type: Progress Notes Filed: 12/26/2023 16:19 Note Text: Subjective HPI Nontoxic-appearing female presents urgent care chief complaint upper back pain. Duration of symptoms 2 days. Associated symptoms left upper back pain that radiates into upper arm. States has transient numbness feeling in index finger. No known injury. States does lift heavy boxes repetitively at work. After lifting a heavy box 2 days ago pain was exacerbated. Has not used any OTC medication. Pain is better today than it was yesterday. No saddle anesthesia or incontinence. Denies chance of . Denies any fever body aches chills productive cough chest pain shortness of breath pleuritic pain hemoptysis nausea vomiting abdominal pain change in bowel or bladder habits. Past medical history prescription medication use and allergies reviewed. .Patient presents with: Neck Pain: X 2 days, Left side, causing headache, numbness in left arm x2 days PAST MEDICAL HISTORY Diagnosis Date Anxiety Renal disorder Varicella without mention of complication 02/17/2004 PAST SURGICAL HISTORY Procedure Laterality Date TONSILLECTOMY AND ADENOIDECTOMY ALLERGIES Calamine MEDICATIONS tamsulosin (FLOMAX) 0.4 mg Take 1 capsule by mouth daily at bedtime for 10 doses. Until stone passed (Patient not taking: Reported on 12/28/2022) ondansetron orally disintegrating (ZOFRAN ODT) 4 mg disintegrating tablet Take 1 tablet by mouth every 8 hours as needed. (Patient not taking: Reported on 12/28/2022) ibuprofen (MOTRIN) 800 mg tablet Take 1 tablet by mouth every 8 hours as needed for Pain or Fever for up to 30 doses. (Patient not taking: Reported on 12/28/2022) FAMILY HISTORY Problem Relation Age of Onset other (kidney problems [Other]) Paternal Grandmother Social History Tobacco Use Smoking status: Former Smokeless tobacco: Never Tobacco comments: Vaping Use Vaping Use: Never used Substance Use Topics Alcohol use: Yes Comment: socially Drug use: Yes Types: Marijuana BP 121/78 Pulse 74 Temp 37.1 ?C (98.8 ?F) Resp 18 Wt 56.2 kg (124 lb) LMP 12/07/2023 (Exact Date) SpO2 99% BMI 20.63 kg/m? Review of Systems Constitutional: Negative for chills, fever and malaise/fatigue. HENT: Negative for congestion, ear discharge, ear pain, sinus pain and sore throat. Eyes: Negative for blurred vision, pain, discharge and redness. Respiratory: Negative for cough, hemoptysis, sputum production, shortness of breath, wheezing and stridor. Cardiovascular: Negative for chest pain. Gastrointestinal: Negative for abdominal pain, diarrhea, nausea and vomiting. Musculoskeletal: Positive for back pain. Negative for falls, joint pain, myalgias and neck pain. Skin: Negative for itching and rash. Neurological: Negative for dizziness and headaches. Objective Physical Exam Constitutional: General: She is not in acute distress. Appearance: She is not toxic-appearing. HENT: Head: Normocephalic. Nose: Nose normal. Eyes: Pupils: Pupils are equal, round, and reactive to light. Cardiovascular: Rate and Rhythm: Normal rate. Pulmonary: Effort: Pulmonary effort is normal. No respiratory distress. Musculoskeletal: Arms: Cervical back: Normal range of motion. Comments: Pain with palpation highlighted area. Pain is reproducible with movements. Neurovascular intact. No breaks in skin. No redness no rashes. No spinal tenderness. Skin: General: Skin is warm and dry. Neurological: General: No focal deficit present. Mental Status: She is alert. ASSESSMENT/PLAN: 1. Upper back pain - ICD9: 724.5, ICD10: M54.9 Diagnosed with upper back pain. Pain reproducible with movement. Treat conservatively at this point. Red flags ER evaluation discussed. Patient was educated on supportive therapies. Patient will follow up with primary care provider as needed. Patient was instructed to immediately proceed to emergency room for any new, worsening, or symptoms lasting longer than anticipated. The patient's clinical presentation is otherwise unremarkable at this time. Based on exam and clinical finding, the patient is stable for discharge. Plan of care was discussed with patient. Patient verbalizes understanding and agrees to plan of care. This note was generated using Televerde software. It may contain errors in wording, punctuation, or spelling. Estefania Meyers APRN.[facility] 12-26-2023 History of Present illness Narrative Images from the original note were not included. Subjective HPI Nontoxic-appearing female presents urgent care chief complaint upper back pain. Duration of symptoms 2 days. Associated symptoms left upper back pain that radiates into upper arm. States has transient numbness feeling in index finger. No known injury. States does lift heavy boxes repetitively at work. After lifting a heavy box 2 days ago pain was exacerbated. Has not used any OTC medication. Pain is better today than it was yesterday. No saddle anesthesia or incontinence. Denies chance of . Denies any fever body aches chills productive cough chest pain shortness of breath pleuritic pain hemoptysis nausea vomiting abdominal pain change in bowel or bladder habits. Past medical history prescription medication use and allergies reviewed. .Patient presents with: Neck Pain: X 2 days, Left side, causing headache, numbness in left arm x2 days PAST MEDICAL HISTORY Diagnosis Date Anxiety Renal disorder Varicella without mention of complication 02/17/2004 PAST SURGICAL HISTORY Procedure Laterality Date TONSILLECTOMY & ADENOIDECTOMY <AGE 13 [id number] ALLERGIES Calamine MEDICATIONS tamsulosin (FLOMAX) 0.4 mg Take 1 capsule by mouth daily at bedtime for 10 doses. Until stone passed (Patient not taking: Reported on 12/28/2022) ondansetron orally disintegrating (ZOFRAN ODT) 4 mg disintegrating tablet Take 1 tablet by mouth every 8 hours as needed. (Patient not taking: Reported on 12/28/2022) ibuprofen (MOTRIN) 800 mg tablet Take 1 tablet by mouth every 8 hours as needed for Pain or Fever for up to 30 doses. (Patient not taking: Reported on 12/28/2022) FAMILY HISTORY Problem Relation Age of Onset other (kidney problems [Other]) Paternal Grandmother Social History Tobacco Use Smoking status: Former Smokeless tobacco: Never Tobacco comments: Vaping Use Vaping Use: Never used Substance Use Topics Alcohol use: Yes Comment: socially Drug use: Yes Types: Marijuana BP 121/78 Pulse 74 Temp 37.1 C (98.8 F) Resp 18 Wt 56.2 kg (124 lb) LMP 12/07/2023 (Exact Date) SpO2 99% BMI 20.63 kg/m Review of Systems Constitutional: Negative for chills, fever and malaise/fatigue. HENT: Negative for congestion, ear discharge, ear pain, sinus pain and sore throat. Eyes: Negative for blurred vision, pain, discharge and redness. Respiratory: Negative for cough, hemoptysis, sputum production, shortness of breath, wheezing and stridor. Cardiovascular: Negative for chest pain. Gastrointestinal: Negative for abdominal pain, diarrhea, nausea and vomiting. Musculoskeletal: Positive for back pain. Negative for falls, joint pain, myalgias and neck pain. Skin: Negative for itching and rash. Neurological: Negative for dizziness and headaches. Objective Physical Exam Constitutional: General: She is not in acute distress. Appearance: She is not toxic-appearing. HENT: Head: Normocephalic. Nose: Nose normal. Eyes: Pupils: Pupils are equal, round, and reactive to light. Cardiovascular: Rate and Rhythm: Normal rate. Pulmonary: Effort: Pulmonary effort is normal. No respiratory distress. Musculoskeletal: Arms: Cervical back: Normal range of motion. Comments: Pain with palpation highlighted area. Pain is reproducible with movements. Neurovascular intact. No breaks in skin. No redness no rashes. No spinal tenderness. Skin: General: Skin is warm and dry. Neurological: General: No focal deficit present. Mental Status: She is alert. ASSESSMENT/PLAN: 1. Upper back pain - ICD9: 724.5, ICD10: M54.9 Diagnosed with upper back pain. Pain reproducible with movement. Treat conservatively at this point. Red flags ER evaluation discussed. Patient was educated on supportive therapies. Patient will follow up with primary care provider as needed. Patient was instructed to immediately proceed to emergency room for any new, worsening, or symptoms lasting longer than anticipated. The patient's clinical presentation is otherwise unremarkable at this time. Based on exam and clinical finding, the patient is stable for discharge. Plan of care was discussed with patient. Patient verbalizes understanding and agrees to plan of care. This note was generated using Televerde software. It may contain errors in wording, punctuation, or spelling. Estefania Meyers APRN.VERO documented in this encounter [facility] 11-08-2023 Note HNO ID: [id number] Author: Naya Jefferson APRN.VERO Service: ? Author Type: Nurse Practitioner Type: Progress Notes Filed: 11/08/2023 2:45 PM Note Text: This note was created using Mac[employer]ill. Subjective Alicia Cerda is a 27 year old female. 27 year old female with no significant PMH presents for illness. Acute onset 4 days ago +sinus pressure +headache +left ear pain Mild cough Denies dyspnea Denies SOB Denies abdominal pain Denies N/V/D Denies tobacco usage. 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 No speech and language assistant was used. Ear Pain This is a new problem. The current episode started in the past 7 days. The problem occurs constantly. The problem has been gradually worsening. Associated symptoms include congestion, coughing and headaches. Pertinent negatives include no abdominal pain, anorexia, arthralgias, change in bowel habit, chest pain, chills, diaphoresis, fatigue, fever, joint swelling, myalgias, nausea, neck pain, numbness, rash, sore throat, swollen glands, urinary symptoms, vertigo, visual change, vomiting or weakness. Nothing aggravates the symptoms. She has tried nothing for the symptoms. The treatment provided no relief. PAST MEDICAL HISTORY Diagnosis Date Anxiety Renal disorder Varicella without mention of complication 02/17/2004 PAST SURGICAL HISTORY Procedure Laterality Date TONSILLECTOMY AND ADENOIDECTOMY ALLERGIES Calamine MEDICATIONS amoxicillin-clavulanate potassium (AUGMENTIN) 875-125 mg per tablet Take 1 tablet by mouth two times a day for 7 days. tamsulosin (FLOMAX) 0.4 mg Take 1 capsule by mouth daily at bedtime for 10 doses. Until stone passed (Patient not taking: Reported on 12/28/2022) ondansetron orally disintegrating (ZOFRAN ODT) 4 mg disintegrating tablet Take 1 tablet by mouth every 8 hours as needed. (Patient not taking: Reported on 12/28/2022) ibuprofen (MOTRIN) 800 mg tablet Take 1 tablet by mouth every 8 hours as needed for Pain or Fever for up to 30 doses. (Patient not taking: Reported on 12/28/2022) FAMILY HISTORY Problem Relation Age of Onset other (kidney problems [Other]) Paternal Grandmother Social History Tobacco Use Smoking status: Former Smokeless tobacco: Never Tobacco comments: Vaping Use Vaping Use: Never used Substance Use Topics Alcohol use: Yes Comment: socially Drug use: Yes Types: Marijuana Review of Systems Constitutional: Negative for chills, diaphoresis, fatigue and fever. HENT: Positive for congestion, ear pain, postnasal drip, rhinorrhea, sinus pressure and sinus pain. Negative for ear discharge and sore throat. Eyes: Negative for photophobia, pain, discharge, redness, itching and visual disturbance. Respiratory: Positive for cough. Negative for apnea, choking and chest tightness. Cardiovascular: Negative for chest pain. Gastrointestinal: Negative for abdominal pain, anorexia, change in bowel habit, nausea and vomiting. Musculoskeletal: Negative for arthralgias, joint swelling, myalgias and neck pain. Skin: Negative for color change, pallor and rash. Allergic/Immunologic: Negative for environmental allergies, food allergies and immunocompromised state. Neurological: Positive for headaches. Negative for dizziness, vertigo, facial asymmetry, weakness and numbness. Hematological: Negative for adenopathy. Does not bruise/bleed easily. Psychiatric/Behavioral: Negative for agitation and behavioral problems. Objective BP 128/82 Pulse 80 Temp 36.9 ?C (98.5 ?F) (Tympanic) Resp 18 Wt 56.4 kg (124 lb 6.4 oz) LMP 05/04/2022 SpO2 98% BMI 20.70 kg/m? Physical Exam Vitals and nursing note reviewed. Constitutional: General: She is not in acute distress. Appearance: Normal appearance. She is normal weight. She is not ill-appearing, toxic-appearing or diaphoretic. HENT: Head: Normocephalic and atraumatic. Comments: +frontal AND maxillary sinus pressure Right Ear: Ear canal and external ear normal. Left Ear: Ear canal and external ear normal. Ears: Comments: Left TM erythematous and bulging Nose: Congestion present. No rhinorrhea. Mouth/Throat: Mouth: Mucous membranes are moist. Pharynx: Posterior oropharyngeal erythema present. No oropharyngeal exudate. Eyes: General: Right eye: No discharge. Left eye: No discharge. Extraocular Movements: Extraocular movements intact. Conjunctiva/sclera: Conjunctivae normal. Pupils: Pupils are equal, round, and reactive to light. Cardiovascular: Rate and Rhythm: Normal rate and regular rhythm. Pulses: Normal pulses. Heart sounds: Normal heart sounds. No murmur heard. No friction rub. Pulmonary: Effort: Pulmonary effort is normal. No respiratory distress. Breath sounds: Normal breath sounds. No stridor. No wheezing, rhonchi or rales. Chest: Chest wall: No tenderness. Abdominal: General: Abdomen is flat. There is no dist (more content not included)... [facility] 11-08-2023 History of Present illness Narrative This note was created using Macromill. Subjective Alicia Cerda is a 27 year old female. 27 year old female with no significant PMH presents for illness. Acute onset 4 days ago +sinus pressure +headache +left ear pain Mild cough Denies dyspnea Denies SOB Denies abdominal pain Denies N/V/D Denies tobacco usage. 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 No speech and language assistant was used. Ear Pain This is a new problem. The current episode started in the past 7 days. The problem occurs constantly. The problem has been gradually worsening. Associated symptoms include congestion, coughing and headaches. Pertinent negatives include no abdominal pain, anorexia, arthralgias, change in bowel habit, chest pain, chills, diaphoresis, fatigue, fever, joint swelling, myalgias, nausea, neck pain, numbness, rash, sore throat, swollen glands, urinary symptoms, vertigo, visual change, vomiting or weakness. Nothing aggravates the symptoms. She has tried nothing for the symptoms. The treatment provided no relief. PAST MEDICAL HISTORY Diagnosis Date Anxiety Renal disorder Varicella without mention of complication 02/17/2004 PAST SURGICAL HISTORY Procedure Laterality Date TONSILLECTOMY & ADENOIDECTOMY <AGE 13 [id number] ALLERGIES Calamine MEDICATIONS amoxicillin-clavulanate potassium (AUGMENTIN) 875-125 mg per tablet Take 1 tablet by mouth two times a day for 7 days. tamsulosin (FLOMAX) 0.4 mg Take 1 capsule by mouth daily at bedtime for 10 doses. Until stone passed (Patient not taking: Reported on 12/28/2022) ondansetron orally disintegrating (ZOFRAN ODT) 4 mg disintegrating tablet Take 1 tablet by mouth every 8 hours as needed. (Patient not taking: Reported on 12/28/2022) ibuprofen (MOTRIN) 800 mg tablet Take 1 tablet by mouth every 8 hours as needed for Pain or Fever for up to 30 doses. (Patient not taking: Reported on 12/28/2022) FAMILY HISTORY Problem Relation Age of Onset other (kidney problems [Other]) Paternal Grandmother Social History Tobacco Use Smoking status: Former Smokeless tobacco: Never Tobacco comments: Vaping Use Vaping Use: Never used Substance Use Topics Alcohol use: Yes Comment: socially Drug use: Yes Types: Marijuana Review of Systems Constitutional: Negative for chills, diaphoresis, fatigue and fever. HENT: Positive for congestion, ear pain, postnasal drip, rhinorrhea, sinus pressure and sinus pain. Negative for ear discharge and sore throat. Eyes: Negative for photophobia, pain, discharge, redness, itching and visual disturbance. Respiratory: Positive for cough. Negative for apnea, choking and chest tightness. Cardiovascular: Negative for chest pain. Gastrointestinal: Negative for abdominal pain, anorexia, change in bowel habit, nausea and vomiting. Musculoskeletal: Negative for arthralgias, joint swelling, myalgias and neck pain. Skin: Negative for color change, pallor and rash. Allergic/Immunologic: Negative for environmental allergies, food allergies and immunocompromised state. Neurological: Positive for headaches. Negative for dizziness, vertigo, facial asymmetry, weakness and numbness. Hematological: Negative for adenopathy. Does not bruise/bleed easily. Psychiatric/Behavioral: Negative for agitation and behavioral problems. Objective BP 128/82 Pulse 80 Temp 36.9 C (98.5 F) (Tympanic) Resp 18 Wt 56.4 kg (124 lb 6.4 oz) LMP 05/04/2022 SpO2 98% BMI 20.70 kg/m Physical Exam Vitals and nursing note reviewed. Constitutional: General: She is not in acute distress. Appearance: Normal appearance. She is normal weight. She is not ill-appearing, toxic-appearing or diaphoretic. HENT: Head: Normocephalic and atraumatic. Comments: +frontal & maxillary sinus pressure Right Ear: Ear canal and external ear normal. Left Ear: Ear canal and external ear normal. Ears: Comments: Left TM erythematous and bulging Nose: Congestion present. No rhinorrhea. Mouth/Throat: Mouth: Mucous membranes are moist. Pharynx: Posterior oropharyngeal erythema present. No oropharyngeal exudate. Eyes: General: Right eye: No discharge. Left eye: No discharge. Extraocular Movements: Extraocular movements intact. Conjunctiva/sclera: Conjunctivae normal. Pupils: Pupils are equal, round, and reactive to light. Cardiovascular: Rate and Rhythm: Normal rate and regular rhythm. Pulses: Normal pulses. Heart sounds: Normal heart sounds. No murmur heard. No friction rub. Pulmonary: Effort: Pulmonary effort is normal. No respiratory distress. Breath sounds: Normal breath sounds. No stridor. No wheezing, rhonchi or rales. Chest: Chest wall: No tenderness. Abdominal: General: Abdomen is flat. There is no distension. Palpations: Abdomen is soft. There is no mass. Tenderness: There is no abdominal tenderness. There is no right CVA tenderness, left CVA tenderness, guarding or rebound. Hernia: No hernia is present. Musculoskeletal: General: No swelling, tenderness, deformity or signs of injury. Normal range of motion. Cervical back: Normal range of motion and neck supple. No rigidity. Right lower leg: No edema. Left lower leg: No edema. Lymphadenopathy: Cervical: Cervical adenopathy present. Skin: General: Skin is warm and dry. Capillary Refill: Capillary refill takes less than 2 seconds. Coloration: Skin is not jaundiced or pale. Findings: No bruising, erythema, lesion or rash. Neurological: General: No focal deficit present. Mental Status: She is alert and oriented to person, place, and time. Cranial Nerves: No cranial nerve deficit. Sensory: No sensory deficit. Motor: No weakness. Coordination: Coordination normal. Gait: Gait normal. Psychiatric: Mood and Affect: Mood normal. Behavior: Behavior normal. Thought Content: Thought content normal. Judgment: Judgment normal. Assessment and Plan ASSESSMENT/PLAN: 1. Acute otitis media, left - ICD9: 382.9, ICD10: H66.92 (primary diagnosis) - Will begin treatment with as per antibiotic as written, see orders - The patient should also be given OTC cough and cold meds as needed, warm salt water gargles, throat lozenges and/or OTC throat spray as needed, and nasal saline gtts and suction prn for the first 5-7 days of treatment. - Supportive care with plenty of fluids, rest, and analgesia prn. - Follow up in 3-5 days if symptoms persist or worsen. 2. Rhinosinusitis - ICD9: 473.9, ICD10: J32.9 - The patient should also be given OTC cough and cold meds as needed, warm salt water gargles, throat lozenges and/or OTC throat spray as needed, and nasal saline gtts and suction prn for the first 5-7 days of treatment. - Supportive care with plenty of fluids, rest, and analgesia prn. - Follow up in 3-5 days if symptoms persist or worsen. Naya Jefferson APRN.SAND SCREENER documented in this encounter [facility] 12-28-2022 Note HNO ID: [id number] Author: Naya Jefferson APRN.SAND SCREENER Service: ? Author Type: Nurse Practitioner Type: Progress Notes Filed: 12/29/2022 9:12 AM Note Text: This note was created using [employer]. Subjective Alicia Cerda is a 27 year old female. 27 years old female present with acute illness started 3 weeks ago Spouse in room with patient +toothache due to broken left upper molar +sensitivity to hot and cold +pain with chewing Denies fever or chills Denies inability to ambulate. Patient state that it started about 3 weeks ago gradually increasing, reported pulsating pain in tooth root that increased at night. She takes Tylenol, ibuprofen, Orajel and mouthwash for pain relieve. States that she can schedule appointment with dentist but only the next month. Patient was asking for antimicrobial therapy. Patient denies health problems, do not take any medications, denies allergy to drugs. The history is provided by the patient and the spouse. No speech and language assistant was used. Dental Problem This is a new problem. The current episode started 1 to 4 weeks ago. The problem occurs intermittently. The problem has been gradually worsening. Pertinent negatives include no abdominal pain, anorexia, arthralgias, change in bowel habit, chest pain, chills, congestion, coughing, diaphoresis, fatigue, fever, headaches, joint swelling, myalgias, nausea, neck pain, numbness, rash, sore throat, swollen glands, urinary symptoms, vertigo, visual change, vomiting or weakness. Nothing aggravates the symptoms. She has tried NSAIDs and acetaminophen (orajel and mouth wash) for the symptoms. The treatment provided mild relief. PAST MEDICAL HISTORY Diagnosis Date Anxiety Renal disorder Varicella without mention of complication 02/17/2004 PAST SURGICAL HISTORY Procedure Laterality Date TONSILLECTOMY AND ADENOIDECTOMY ALLERGIES Calamine MEDICATIONS amoxicillin-clavulanic acid (AUGMENTIN) 875-125 mg per tablet Take 1 tablet by mouth twice daily for 5 days. tamsulosin (FLOMAX) 0.4 mg Take 1 capsule by mouth daily at bedtime for 10 doses. Until stone passed (Patient not taking: Reported on 12/28/2022) ondansetron orally disintegrating (ZOFRAN ODT) 4 mg disintegrating tablet Take 1 tablet by mouth every 8 hours as needed. (Patient not taking: Reported on 12/28/2022) ibuprofen (MOTRIN) 800 mg tablet Take 1 tablet by mouth every 8 hours as needed for Pain or Fever for up to 30 doses. (Patient not taking: Reported on 12/28/2022) FAMILY HISTORY Problem Relation Age of Onset other (kidney problems [Other]) Paternal Grandmother Social History Tobacco Use Smoking status: Former Smokeless tobacco: Never Tobacco comments: Vaping Use Vaping Use: Never used Substance Use Topics Alcohol use: Yes Comment: socially Drug use: Yes Types: Marijuana Review of Systems Constitutional: Negative for activity change, appetite change, chills, diaphoresis, fatigue and fever. HENT: Positive for dental problem and mouth sores. Negative for congestion, drooling, ear discharge, ear pain, hearing loss, nosebleeds, postnasal drip, rhinorrhea, sinus pressure, sinus pain, sore throat and trouble swallowing. Eyes: Negative for pain, discharge, redness, itching and visual disturbance. Respiratory: Negative for cough, chest tightness, shortness of breath and wheezing. Cardiovascular: Negative for chest pain, palpitations and leg swelling. Gastrointestinal: Negative for abdominal distention, abdominal pain, anorexia, blood in stool, change in bowel habit, constipation, diarrhea, nausea and vomiting. Genitourinary: Negative for difficulty urinating, dysuria, frequency and urgency. Musculoskeletal: Negative for arthralgias, back pain, gait problem, joint swelling, myalgias and neck pain. Skin: Negative for color change, pallor, rash and wound. Allergic/Immunologic: Negative for environmental allergies, food allergies and immunocompromised state. Neurological: Negative for dizziness, vertigo, weakness, light-headedness, numbness and headaches. Psychiatric/Behavioral: Positive for sleep disturbance. Negative for behavioral problems. Objective BP 124/70 Pulse 78 Temp 36.9 ?C (98.5 ?F) Resp 16 Wt 52.6 kg (116 lb) LMP 05/04/2022 SpO2 100% BMI 19.30 kg/m? Physical Exam Vitals and nursing note reviewed. Exam conducted with a potato chip cooker machine present. Constitutional: General: She is not in acute distress. Appearance: Normal appearance. She is not ill-appearing, toxic-appearing or diaphoretic. HENT: Head: Normocephalic and atraumatic. Right Ear: Tympanic membrane, ear canal and external ear normal. There is no impacted cerumen. Left Ear: Tympanic membrane, ear canal and external ear normal. There is no impacted cerumen. Nose: No congestion or rhinorrhea. Mouth/Throat: Mouth: Mucous membranes are moist. Dentition: Abnormal dentition. Dental tenderness (#16) and dental (more content not included)... [facility] 12-28-2022 History of Present illness Narrative Images from the original note were not included. This note was created using Macromill. Subjective Alicia Cerda is a 27 year old female. 27 years old female present with acute illness started 3 weeks ago Spouse in room with patient +toothache due to broken left upper molar +sensitivity to hot and cold +pain with chewing Denies fever or chills Denies inability to ambulate. Patient state that it started about 3 weeks ago gradually increasing, reported pulsating pain in tooth root that increased at night. She takes Tylenol, ibuprofen, Orajel and mouthwash for pain relieve. States that she can schedule appointment with dentist but only the next month. Patient was asking for antimicrobial therapy. Patient denies health problems, do not take any medications, denies allergy to drugs. The history is provided by the patient and the spouse. No speech and language assistant was used. Dental Problem This is a new problem. The current episode started 1 to 4 weeks ago. The problem occurs intermittently. The problem has been gradually worsening. Pertinent negatives include no abdominal pain, anorexia, arthralgias, change in bowel habit, chest pain, chills, congestion, coughing, diaphoresis, fatigue, fever, headaches, joint swelling, myalgias, nausea, neck pain, numbness, rash, sore throat, swollen glands, urinary symptoms, vertigo, visual change, vomiting or weakness. Nothing aggravates the symptoms. She has tried NSAIDs and acetaminophen (orajel and mouth wash) for the symptoms. The treatment provided mild relief. PAST MEDICAL HISTORY Diagnosis Date Anxiety Renal disorder Varicella without mention of complication 02/17/2004 PAST SURGICAL HISTORY Procedure Laterality Date TONSILLECTOMY & ADENOIDECTOMY <AGE 13 [id number] ALLERGIES Calamine MEDICATIONS amoxicillin-clavulanic acid (AUGMENTIN) 875-125 mg per tablet Take 1 tablet by mouth twice daily for 5 days. tamsulosin (FLOMAX) 0.4 mg Take 1 capsule by mouth daily at bedtime for 10 doses. Until stone passed (Patient not taking: Reported on 12/28/2022) ondansetron orally disintegrating (ZOFRAN ODT) 4 mg disintegrating tablet Take 1 tablet by mouth every 8 hours as needed. (Patient not taking: Reported on 12/28/2022) ibuprofen (MOTRIN) 800 mg tablet Take 1 tablet by mouth every 8 hours as needed for Pain or Fever for up to 30 doses. (Patient not taking: Reported on 12/28/2022) FAMILY HISTORY Problem Relation Age of Onset other (kidney problems [Other]) Paternal Grandmother Social History Tobacco Use Smoking status: Former Smokeless tobacco: Never Tobacco comments: Vaping Use Vaping Use: Never used Substance Use Topics Alcohol use: Yes Comment: socially Drug use: Yes Types: Marijuana Review of Systems Constitutional: Negative for activity change, appetite change, chills, diaphoresis, fatigue and fever. HENT: Positive for dental problem and mouth sores. Negative for congestion, drooling, ear discharge, ear pain, hearing loss, nosebleeds, postnasal drip, rhinorrhea, sinus pressure, sinus pain, sore throat and trouble swallowing. Eyes: Negative for pain, discharge, redness, itching and visual disturbance. Respiratory: Negative for cough, chest tightness, shortness of breath and wheezing. Cardiovascular: Negative for chest pain, palpitations and leg swelling. Gastrointestinal: Negative for abdominal distention, abdominal pain, anorexia, blood in stool, change in bowel habit, constipation, diarrhea, nausea and vomiting. Genitourinary: Negative for difficulty urinating, dysuria, frequency and urgency. Musculoskeletal: Negative for arthralgias, back pain, gait problem, joint swelling, myalgias and neck pain. Skin: Negative for color change, pallor, rash and wound. Allergic/Immunologic: Negative for environmental allergies, food allergies and immunocompromised state. Neurological: Negative for dizziness, vertigo, weakness, light-headedness, numbness and headaches. Psychiatric/Behavioral: Positive for sleep disturbance. Negative for behavioral problems. Objective BP 124/70 Pulse 78 Temp 36.9 C (98.5 F) Resp 16 Wt 52.6 kg (116 lb) LMP 05/04/2022 SpO2 100% BMI 19.30 kg/m Physical Exam Vitals and nursing note reviewed. Exam conducted with a potato chip cooker machine present. Constitutional: General: She is not in acute distress. Appearance: Normal appearance. She is not ill-appearing, toxic-appearing or diaphoretic. HENT: Head: Normocephalic and atraumatic. Right Ear: Tympanic membrane, ear canal and external ear normal. There is no impacted cerumen. Left Ear: Tympanic membrane, ear canal and external ear normal. There is no impacted cerumen. Nose: No congestion or rhinorrhea. Mouth/Throat: Mouth: Mucous membranes are moist. Dentition: Abnormal dentition. Dental tenderness (#16) and dental caries present. Pharynx: No oropharyngeal exudate or posterior oropharyngeal erythema. Comments: #16 left upper molar with peridental integrity and tenderness to palpation Eyes: General: No scleral icterus. Right eye: No discharge. Left eye: No discharge. Conjunctiva/sclera: Conjunctivae normal. Pupils: Pupils are equal, round, and reactive to light. Neck: Vascular: No carotid bruit. Cardiovascular: Rate and Rhythm: Normal rate and regular rhythm. Pulses: Normal pulses. Heart sounds: Normal heart sounds. No murmur heard. No friction rub. No gallop. Pulmonary: Effort: Pulmonary effort is normal. No respiratory distress. Breath sounds: Normal breath sounds. No stridor. No wheezing, rhonchi or rales. Chest: Chest wall: No tenderness. Abdominal: General: Abdomen is flat. Bowel sounds are normal. There is no distension. Palpations: Abdomen is soft. There is no mass. Tenderness: There is no abdominal tenderness. There is no guarding. Musculoskeletal: General: No swelling, tenderness, deformity or signs of injury. Normal range of motion. Cervical back: Normal range of motion. No rigidity or tenderness. Right lower leg: No edema. Left lower leg: No edema. Lymphadenopathy: Cervical: No cervical adenopathy. Skin: General: Skin is warm and dry. Capillary Refill: Capillary refill takes less than 2 seconds. Coloration: Skin is not jaundiced or pale. Findings: No bruising, erythema, lesion or rash. Neurological: General: No focal deficit present. Mental Status: She is alert and oriented to person, place, and time. Sensory: No sensory deficit. Motor: No weakness. Coordination: Coordination normal. Gait: Gait normal. Psychiatric: Mood and Affect: Mood normal. Behavior: Behavior normal. Assessment and Plan ASSESSMENT/PLAN: 1. Dentalgia - ICD9: 525.9, ICD10: K08.89 - begin Amoxicillin with Clavulanate - schedule appointment with your dentist - continue OTC analgesia as needed - follow up in 3-5 days if no improvement Caitlin Ontiveros TEACHING PROVIDER (Physician/PA/LIFE SCIENCES INSTRUCTOR) NOTE OF PERSONAL INVOLVEMENT IN CARE: I have personally seen and examined the patient and performed the medical decision-making components. I have reviewed the Advanced Practice Registered Nurse (LIFE SCIENCES INSTRUCTOR) Student's documentation and verified the findings in the note as written. Any additions or changes are noted in bold/italics. Signature: Naya Jefferson Date: 12/29/2022 Time: 9:11 AM documented in this encounter [facility] 10-18-2022 Note . MICRO - Microbiology PROCEDURE: Urine Culture [*1] SOURCE: Urine BODY SITE: COLLECTED DATE/TIME: 10/16/2022 01:03 EST RECEIVED DATE/TIME: 10/16/2022 15:42 EST START DATE/TIME: 10/16/2022 15:42 EST FREE TEXT SOURCE: FINAL REPORTS Final Report [] Verified Date/Time/Personnel: 10/18/2022 07:45 EST 10,000 - 50,000 cfu/ml Mixed growth consistent with normal urogenital wilberto. PRELIMINARY REPORTS Preliminary Report [] Verified Date/Time/Personnel: 10/17/2022 11:50 EST No growth to date Performing Locations *1: This test was performed at: [facility], [address] [place] [address], [id number] , [facility] ([place]) 10-16-2022 Evaluation + Plan note Diagnostic Tests PendingUrine Culture 10/16/22 [facility] 10-16-2022 Hospital Discharge instructions Patient Education 10/16/2022 03:27:27 Bladder Infection, Female (Adult) Bladder Infection, Female (Adult) Urine is normally doesn't have any bacteria in it. But bacteria can get into the urinary tract from the skin around the rectum. Or they can travel in the blood from elsewhere in the body. Once they are in your urinary tract, they can cause infection in the urethra (urethritis), the bladder (cystitis), or the kidneys (pyelonephritis). The most common place for an infection is in the bladder. This is called a bladder infection. This is one of the most common infections in women. Most bladder infections are easily treated. They are not serious unless the infection spreads to the kidney. The phrases bladder infection, UTI, and cystitis are often used to describe the same thing. But they are not always the same. Cystitis is an inflammation of the bladder. The most common cause of cystitis is an infection. Symptoms The infection causes inflammation in the urethra and bladder. This causes many of the symptoms. The most common symptoms of a bladder infection are: Pain or burning when urinating Having to urinate more often than usual Urgent need to urinate Only a small amount of urine comes out Blood in urine Abdominal discomfort. This is usually in the lower abdomen above the pubic bone. Cloudy urine Strong- or bad-smelling urine Unable to urinate (urinary retention) Unable to hold urine in (urinary incontinence) Fever Loss of appetite Confusion (in older adults) Causes Bladder infections are not contagious. You can't get one from someone else, from a toilet seat, or from sharing a bath. The most common cause of bladder infections is bacteria from the bowels. The bacteria get onto the skin around the opening of the urethra. From there, they can get into the urine and travel up to the bladder, causing inflammation and infection. This usually happens because of: Wiping improperly after urinating. Always wipe from front to back. Bowel incontinence Procedures such as having a catheter inserted Older age Not emptying your bladder. This can allow bacteria a chance to grow in your urine. Dehydration Constipation Sex Use of a diaphragm for control Treatment Bladder infections are diagnosed by a urine test. They are treated with antibiotics and usually clear up quickly without complications. Treatment helps prevent a more serious kidney infection. Medicines Medicines can help in the treatment of a bladder infection: Take antibiotics until they are used up, even if you feel better. It is important to finish them to make sure the infection has cleared. You can use acetaminophen or ibuprofen for pain, fever, or discomfort, unless another medicine was prescribed. If you have chronic liver or kidney disease, talk with your healthcare provider before using these medicines. Also talk with your provider if you've ever had a stomach ulcer or gastrointestinal bleeding, or are taking blood-thinner medicines. If you are given phenazopydridine to reduce burning with urination, it will cause your urine to become a bright orange color. This can stain clothing. Care and prevention These self-care steps can help prevent future infections: Drink plenty of fluids to prevent dehydration and flush out your bladder. Do this unless you must restrict fluids for other health reasons, or your doctor told you not to. Proper cleaning after going to the bathroom is important. Wipe from front to back after using the toilet to prevent the spread of bacteria. Urinate more often. Don't try to hold urine in for a long time. Wear loose-fitting clothes and cotton underwear. Avoid tight-fitting pants. Improve your diet and prevent constipation. Eat more fresh fruit and vegetables, and fiber, and less junk and fatty foods. Avoid sex until your symptoms are gone. Avoid caffeine, alcohol, and spicy foods. These can irritate your bladder. Urinate right after intercourse to flush out your bladder. If you use control pills and have frequent bladder infections, discuss it with your doctor. Follow-up care Call your healthcare provider if all symptoms are not gone after 3 days of treatment. This is especially important if you have repeat infections. If a culture was done, you will be told if your treatment needs to be changed. If directed, you can call to find out the results. If X-rays were done, you will be told if the results will affect your treatment. Call 911 Call 911 if any of the following occur: Trouble breathing Hard to wake up or confusion Fainting or loss of consciousness Rapid heart rate When to seek medical advice Call your healthcare provider right away if any of these occur: Fever of 100.4 F (38.0 C) or higher, or as directed by your healthcare provider Symptoms are not better by the third day of treatment Back or belly (abdominal) pain that gets worse Repeated vomiting, or unable to keep medicine down Weakness or dizziness Vaginal discharge Pain, redness, or swelling in the outer vaginal area (labia) 3336-6622 [employer]. [address] [place] [address], [place] [address]. All rights reserved. This information is not intended as a substitute for professional medical care. Always follow your healthcare professional's instructions. 10/16/2022 03:27:26 Abdominal Pain, Early Abdominal Pain and Early The tests you had show that you are , but the exact cause of your pain isn t clear. Some pain and bleeding are common early in . Often they stop, and you can go on to have a normal and baby. Other times the pain or bleeding can be signs of a miscarriage or ectopic . An ectopic is a very serious problem. At this time it is unclear if your will continue normally, if you will have a miscarriage, or if you could have an ectopic . Below is some information about this. Miscarriage At this time we don t know whether you will have a miscarriage, or if things will clear up and your will continue normally. We understand that this is emotionally difficult. There is little we can say to change the way you feel. But understand that miscarriages are common. About 1 or 2 out of every [address] Some end even before you know you are . This happens for a number of reasons, and usually we never figure out why. It s important you know that it is not your fault. It didn t happen because you did anything wrong. Having sex or exercising does not cause a miscarriage. These activities are usually safe unless you have pain or bleeding or your doctor tells you to stop. Even minor falls won t cause a miscarriage. Miscarriages happen because things were not developing as they were supposed to. No medicine can prevent a miscarriage. Ectopic In a normal , the fertilized egg attaches to the wall of the womb (uterus). In an ectopic or tubal , the fertilized egg attaches outside the uterus, usually in the fallopian tube. Very rarely, the egg attaches to an ovary or somewhere else in the abdomen. An ectopic is much less common than a miscarriage, but it is very serious. The baby cannot survive, and as it grows it can rupture the tube. This can cause internal bleeding and even . Risk factors for an ectopic are: An ectopic in the past Pelvic inflammatory disease, or PID Endometriosis Smoking An IUD Additional tests Because we don t know what s causing your symptoms, you will need more tests to figure out what the problem is. You may need the following. Ultrasound An ultrasound can usually find a normal as early as 4 to 5 weeks along. If the ultrasound does not show the baby inside the uterus, it means one of the following. You have a normal less than 4 weeks along You are having or recently had a miscarriage You have an ectopic Quantitative HCG This test measures the amount of a hormone in your blood. Comparing today's test result to a repeat test in 2 days will show whether you have a normal . Laparoscopy This is a type of surgery. The healthcare provider will put a tube with a light inside your belly (abdomen) to look directly at your pelvic organs. This test is used when it is not safe to wait 2 days for blood test results. Important information If you do have an ectopic , there is a small chance that the growing fetus can tear the fallopian tube. This can cause severe internal bleeding. If this happens, you may have: Sudden severe pain in your lower abdomen Vaginal bleeding Weakness, dizziness, and sometimes fainting If any of these symptoms occur: Call 911or return right away to the hospital. Don't drive yourself. Don't go to your healthcare provider's office or to a clinic. Go to the hospital. Home care Follow these guidelines to help care for yourself at home: Rest until your next exam. Don t do anything strenuous. Eat a light diet with foods that are easy to digest. Don t have sex until your healthcare provider says it s OK. Follow-up care Follow up with your healthcare provider, or as advised. If you were told to have a repeat blood test in 2 days, it s important to get it done. If you had an X-ray or ultrasound, a radiologist will review it. You will be told of any new findings that may affect your care. Call 911 Call 911 if you have any of these: Severe pain and very heavy bleeding Severe lightheadedness, passing out, or fainting Rapid heart rate Trouble breathing Confused or difficulty waking up When to seek medical advice Call your healthcare provider right away if any of these occur: The pain in your abdomen gets worse, either suddenly or gradually. You are dizzy or weak when you stand. You have heavy vaginal bleeding. This means soaking 1 pad an hour for 3 hours. You have vaginal bleeding for more than 5 days. You have repeated vomiting or diarrhea. The pain in your abdomen moves to the lower right. You have blood in your vomit or bowel movements. This will be dark red or black. You have a fever of 100.4 F (38 C) or higher, or as directed by your healthcare provider. [id number] [employer]. [address] [place] [address]. All rights reserved. This information is not intended as a substitute for professional medical care. Always follow your healthcare professional's instructions. Follow Up Care 10/15/2022 23:12:02 With:ELISE MADRID MD Address: [facility] [address] [place] [address] [phone] When:2-4 days [facility] 10-16-2022 Note Discharge Instructions Thank you for allowing [facility] to assist you with your healthcare needs. The following is important discharge information regarding your hospital visit. Diagnosis from Today's Visit Abdominal pain UTI - Urinary tract infection Abdominal pain Back pain What to Do Next Instructions from Your Care Team No qualifying data available. Post Acute Orders No qualifying data available. You Need to Schedule the Following Appointments Follow Up with ELISE MADRID MD When Within 2-4 days Where: [facility] [address] [place] [address] [phone] Allergies NKA Medications Please ask your primary doctor or pharmacist before taking any other medication not listed, including over the counter drugs, herbal medications, vitamins and or supplements as they may interact with your home medications. What How Much When Why Instructions Last Dose New cephalexin (cephalexin 500 mg oral capsule) 1 cap by mouth Every 12 hours Abdominal pain Duration: 7 Days Printed Prescription New multivitamin, ( Multivitamins with FA 0.8 mg oral tablet) 1 tab(s) by mouth Every day Abdominal pain Printed Prescription New ondansetron (Zofran 4 mg oral tablet) 1 tab(s) by mouth Every 8 hours Abdominal pain Duration: 5 Days Printed Prescription Please take this list to your next doctor s visit. Bring all medications you take, including over the counter medications, herbals and other supplements with you to your doctor s visit. Patients and families are reminded to discard old lists and to update any records with all medication providers or retail pharmacies. Education Materials Bladder Infection, Female (Adult) Urine is normally doesn't have any bacteria in it. But bacteria can get into the urinary tract from the skin around the rectum. Or they can travel in the blood from elsewhere in the body. Once they are in your urinary tract, they can cause infection in the urethra (urethritis), the bladder (cystitis), or the kidneys (pyelonephritis). The most common place for an infection is in the bladder. This is called a bladder infection. This is one of the most common infections in women. Most bladder infections are easily treated. They are not serious unless the infection spreads to the kidney. The phrases bladder infection, UTI, and cystitis are often used to describe the same thing. But they are not always the same. Cystitis is an inflammation of the bladder. The most common cause of cystitis is an infection. Symptoms The infection causes inflammation in the urethra and bladder. This causes many of the symptoms. The most common symptoms of a bladder infection are: Pain or burning when urinating Having to urinate more often than usual Urgent need to urinate Only a small amount of urine comes out Blood in urine Abdominal discomfort. This is usually in the lower abdomen above the pubic bone. Cloudy urine Strong- or bad-smelling urine Unable to urinate (urinary retention) Unable to hold urine in (urinary incontinence) Fever Loss of appetite Confusion (in older adults) Causes Bladder infections are not contagious. You can't get one from someone else, from a toilet seat, or from sharing a bath. The most common cause of bladder infections is bacteria from the bowels. The bacteria get onto the skin around the opening of the urethra. From there, they can get into the urine and travel up to the bladder, causing inflammation and infection. This usually happens because of: Wiping improperly after urinating. Always wipe from front to back. Bowel incontinence Procedures such as having a catheter inserted Older age Not emptying your bladder. This can allow bacteria a chance to grow in your urine. Dehydration Constipation Sex Use of a diaphragm for control Treatment Bladder infections are diagnosed by a urine test. They are treated with antibiotics and usually clear up quickly without complications. Treatment helps prevent a more serious kidney infection. Medicines Medicines can help in the treatment of a bladder infection: Take antibiotics until they are used up, even if you feel better. It is important to finish them to make sure the infection has cleared. You can use acetaminophen or ibuprofen for pain, fever, or discomfort, unless another medicine was prescribed. If you have chronic liver or kidney disease, talk with your healthcare provider before using these medicines. Also talk with your provider if you've ever had a stomach ulcer or gastrointestinal bleeding, or are taking blood-thinner medicines. If you are given phenazopydridine to reduce burning with urination, it will cause your urine to become a bright orange color. This can stain clothing. Care and prevention These self-care steps can help prevent future infections: Drink plenty of fluids to prevent dehydration and flush out your bladder. Do this unless you must restrict fluids for other health reasons, or your doctor told you not to. Proper cleaning after going to the bathroom is important. Wipe from front to back after using the toilet to prevent the spread of bacteria. Urinate more often. Don't try to hold urine in for a long time. Wear loose-fitting clothes and cotton underwear. Avoid tight-fitting pants. Improve your diet and prevent constipation. Eat more fresh fruit and vegetables, and fiber, and less junk and fatty foods. Avoid sex until your symptoms are gone. Avoid caffeine, alcohol, and spicy foods. These can irritate your bladder. Urinate right after intercourse to flush out your bladder. If you use control pills and have frequent bladder infections, discuss it with your doctor. Follow-up care Call your healthcare provider if all symptoms are not gone after 3 days of treatment. This is especially important if you have repeat infections. If a culture was done, you will be told if your treatment needs to be changed. If directed, you can call to find out the results. If X-rays were done, you will be told if the results will affect your treatment. Call 911 Call 911 if any of the following occur: Trouble breathing Hard to wake up or confusion Fainting or loss of consciousness Rapid heart rate When to seek medical advice Call your healthcare provider right away if any of these occur: Fever of 100.4 F (38.0 C) or higher, or as directed by your healthcare provider Symptoms are not better by the third day of treatment Back or belly (abdominal) pain that gets worse Repeated vomiting, or unable to keep medicine down Weakness or dizziness Vaginal discharge Pain, redness, or swelling in the outer vaginal area (labia) [id number] [employer]. [address] [place] [address]. All rights reserved. This information is not intended as a substitute for professional medical care. Always follow your healthcare professional's instructions. Abdominal Pain and Early The tests you had show that you are , but the exact cause of your pain isn t clear. Some pain and bleeding are common early in . Often they stop, and you can go on to have a normal and baby. Other times the pain or bleeding can be signs of a miscarriage or ectopic . An ectopic is a very serious problem. At this time it is unclear if your will continue normally, if you will have a miscarriage, or if you could have an ectopic . Below is some information about this. Miscarriage At this time we don t know whether you will have a miscarriage, or if things will clear up and your will continue normally. We understand that this is emotionally difficult. There is little we can say to change the way you feel. But understand that miscarriages are common. About 1 or 2 out of every [address] Some end even before you know you are . This happens for a number of reasons, and usually we never figure out why. It s important you know that it is not your fault. It didn t happen because you did anything wrong. Having sex or exercising does not cause a miscarriage. These activities are usually safe unless you have pain or bleeding or your doctor tells you to stop. Even minor falls won t cause a miscarriage. Miscarriages happen because things were not developing as they were supposed to. No medicine can prevent a miscarriage. Ectopic In a normal , the fertilized egg attaches to the wall of the womb (uterus). In an ectopic or tubal , the fertilized egg attaches outside the uterus, usually in the fallopian tube. Very rarely, the egg attaches to an ovary or somewhere else in the abdomen. An ectopic is much less common than a miscarriage, but it is very serious. The baby cannot survive, and as it grows it can rupture the tube. This can cause internal bleeding and even . Risk factors for an ectopic are: An ectopic in the past Pelvic inflammatory disease, or PID Endometriosis Smoking An IUD Additional tests Because we don t know what s causing your symptoms, you will need more tests to figure out what the problem is. You may need the following. Ultrasound An ultrasound can usually find a normal as early as 4 to 5 weeks along. If the ultrasound does not show the baby inside the uterus, it means one of the following. You have a normal less than 4 weeks along You are having or recently had a miscarriage You have an ectopic Quantitative HCG This test measures the amount of a hormone in your blood. Comparing today's test result to a repeat test in 2 days will show whether you have a normal . Laparoscopy This is a type of surgery. The healthcare provider will put a tube with a light inside your belly (abdomen) to look directly at your pelvic organs. This test is used when it is not safe to wait 2 days for blood test results. Important information If you do have an ectopic , there is a small chance that the growing fetus can tear the fallopian tube. This can cause severe internal bleeding. If this happens, you may have: Sudden severe pain in your lower abdomen Vaginal bleeding Weakness, dizziness, and sometimes fainting If any of these symptoms occur: Call 911or return right away to the hospital. Don't drive yourself. Don't go to your healthcare provider's office or to a clinic. Go to the hospital. Home care Follow these guidelines to help care for yourself at home: Rest until your next exam. Don t do anything strenuous. Eat a light diet with foods that are easy to digest. Don t have sex until your healthcare provider says it s OK. Follow-up care Follow up with your healthcare provider, or as advised. If you were told to have a repeat blood test in 2 days, it s important to get it done. If you had an X-ray or ultrasound, a radiologist will review it. You will be told of any new findings that may affect your care. Call 911 Call 911 if you have any of these: Severe pain and very heavy bleeding Severe lightheadedness, passing out, or fainting Rapid heart rate Trouble breathing Confused or difficulty waking up When to seek medical advice Call your healthcare provider right away if any of these occur: The pain in your abdomen gets worse, either suddenly or gradually. You are dizzy or weak when you stand. You have heavy vaginal bleeding. This means soaking 1 pad an hour for 3 hours. You have vaginal bleeding for more than 5 days. You have repeated vomiting or diarrhea. The pain in your abdomen moves to the lower right. You have blood in your vomit or bowel movements. This will be dark red or black. You have a fever of 100.4 F (38 C) or higher, or as directed by your healthcare provider. 3508-2338 [employer]. [address] [place] [address]. All rights reserved. This information is not intended as a substitute for professional medical care. Always follow your healthcare professional's instructions. Additional Information VACCINATE! IT SAVES LIVES! Members of the community who have not yet received the COVID-19 vaccine and would like to receive it can visit one of [facility] vaccine clinics. There are many vaccine clinic locations within the [facility]. For locations and available times, please visit [email or web address]. It is important to note that some COVID mobile vaccine clinics are held outdoors and may be canceled in rainy or stormy conditions. To learn more about pediatric vaccinations (ages 5-11), we invite you to visit the [facility] webpage. [email or web address] To learn more about the COVID-19 vaccine, we invite you to visit the [facility] website for a list of frequently asked questions. [email or web address] [facility] Patient Portal Access Instructions: Stay connected with your healthcare team and access your personal medical information anytime with the [facility] Patient Portal. If you would like a full copy of your medical records please contact the [facility] Medical Records Department Monday through Monday between 8a.m. and 4:30p.m. Please follow the directions below to access the portal: 1.Access the email account you provided upon registration to the [facility].2.Look for an invitation email from [facility].3.Open the email and access the invitation link: Accept Invitation to [employer]4.Fill in the required lin to create your account. Sign into [email or web address] with your username and password that you created in the above steps to stay up to date. You can then view a summary of results, a summary of your visits, and the ability to download your summaries to your computer or send the information securely to a physician. Remember that your healthcare information is confidential, so carefully consider who you will allow to register on the [facility] Patient Portal for access to your information. You can also access the [facility] Patient Portal on the [employer] pascual. Simply click on Health Records under Health Data and then click on the Noam logo. HOW TO SAFELY DISPOSE OF PRESCRIPTION MEDICATIONS Please use one of the following methods to safely dispose of your unused medications. 1.Use a drug disposal kit: the drug disposal pouch allows you to safely discard your old and unused drugs. Ask your nurse to give you one when you are discharged.2.Visit a local take-back location: Many local pharmacies and police departments have programs that collect old and unwanted prescription drugs. Call your local pharmacy or go to http://bit.[employer] Data/5G5Ns7s to find one close to you.3.Make use of household items: Use cat litter or old coffee grounds to dispose medications if other options are not available. Mix your drugs with these household products, seal them in an airtight container and throw it into the garbage. Call [facility]: [phone] to be sure your drugs can be disposed of in this way. Some medicines may require a different approach.4.Never flush your medications down the toilet. IF YOU HAVE BEEN PRESCRIBED AN OPIOIDS FOR PAIN If you have been prescribed an opioid (such as hydrocodone, oxycodone or morphine), it is critical to understand the possible side effects and risks of opioid pain medications. Even when taken as directed, opioids can have several side effects including: Tolerance, meaning you might need to take more of a medication for the same pain relief. Nausea, vomiting and/or constipation. Sleepiness, dizziness, dry mouth, confusion, depression or itching. Physical dependence, meaning you have withdrawal symptoms when a medication is stopped ? this can develop within a few days. KNOW YOUR RESPONSIBILITIES It is important to know exactly how much and how often to take the opioid pain medications you are prescribed. Never take opioids in higher amounts or more often than prescribed. Do not combine opioids with alcohol or other drugs that cause drowsiness, such as benzodiazepines, also known as benzos, including diazepam and alprazolam, muscle relaxants or sleep aids. Never sell or share prescription opioids. This is illegal. Store opioids in a secure place and out of reach of others (including children, family, friends and visitors). The last page(s) of this document has been signed and retained as a CHART COPY Signatures Patient Education Materials Bladder Infection, Female (Adult) Abdominal Pain, Early Medication Leaflets My discharge plan and instructions have been reviewed and explained to me and IADELE MALORY understand my current condition and have read and understand these discharge instructions. I have received a written copy of the plan/instructions. If I have questions, I am aware that I should contact my doctor. 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 HISTORY: ORDERING SYSTEM PROVIDED HISTORY: Reason for Exam: flank pain, , r/o hydronephrosis, h/o kidney stones FINDINGS: Right kidney measures 8.3 x 3.5 x 4.9 cm, left kidney measures 10.2 x 5.6 x 3.7 cm. No pelvicaliectasis is identified. No suspicious renal lesions are noted. Renal cortical echogenicity is normal. Urinary bladder demonstrates no acute findings. No ascites. IMPRESSION: Unremarkable ultrasound of the kidneys. RECOMMENDATIONS: Unavailable Interpreted by: Zeke Quintero MD Preliminary Report By: Zeke Quintero MD Electronically signed By Zeke Quintero MD Dictated Date: 10/16/2022 2:38:43 AM Prelim Date: 10/16/2022 2:41:17 AM Sign Date: 10/16/2022 2:41:17 AM Ordering Provider: [facility] 10-16-2022 Note ORIGINAL EXAMINATION: ULTRASOUND OF THE KIDNEYS 10/16/2022 2:04 am COMPARISON: None. HISTORY: ORDERING SYSTEM PROVIDED HISTORY: Reason for Exam: flank pain, , r/o hydronephrosis, h/o kidney stones FINDINGS: Right kidney measures 8.3 x 3.5 x 4.9 cm, left kidney measures 10.2 x 5.6 x 3.7 cm. No pelvicaliectasis is identified. No suspicious renal lesions are noted. Renal cortical echogenicity is normal. Urinary bladder demonstrates no acute findings. No ascites. IMPRESSION: Unremarkable ultrasound of the kidneys. RECOMMENDATIONS: Unavailable Interpreted by: Zeke Quintero MD Preliminary Report By: Zeke Quintero MD Electronically signed By Zeke Quintero MD Dictated Date: 10/16/2022 2:38:43 AM Prelim Date: 10/16/2022 2:41:17 AM Sign Date: 10/16/2022 2:41:17 AM Ordering Provider: [facility] Acute otitis media, left- Primary Unspecified otitis media Rhinosinusitis Unspecified sinusitis (chronic) [facility] Diagnosis Upper back pain- Primary [facility] Narrative No data available for this section [facility] Summary Purpose Family History No Family History Records FoundNo Family History Records FoundNo Family History Records FoundNo Family History Records FoundNo Family History Records FoundNo Family History Records Found Advance Directives No Advanced Directives Records FoundNo Advanced Directives Records FoundNo Advanced Directives Records FoundNo Advanced Directives Records FoundNo Advanced Directives Records FoundNo Advanced Directives Records Found Additional Source Comments INFORMATION SOURCE (unrecogn ized section and content) DATE CREATED AUTHOR AUTHOR'S ORGANIZ ATION 12/29/2019 [facility] DATE CREATED AUTHOR AUTHOR'S ORGANIZ ATION 05/22/2022 [facility] DATE CREATED AUTHOR AUTHOR'S ORGANIZ ATION 10/26/2022 [facility] DATE CREATED AUTHOR AUTHOR'S ORGANIZ ATION 03/21/2023 [facility] DATE CREATED AUTHOR AUTHOR'S ORGANIZ ATION 12/27/2023 [facility] Care Team (unrecognized sect ion and content) Care Team Personnel Name: PHYSICIAN, NOT RECORDED Member Role: Primary Care Physician Name: CATHLEEN JHA MD Position: ED Physician Member Role: Ordering Physician Address: Address: [facility] [address] [place], [place] [address] Care Team Related Persons Name: AMBER JACOBSON Source Comments (unrecognize d section and content) In the event this informatio n is protected by the Federal Confidentiality of Alcohol and Drug Abuse Patient Records regulations: The Federal rules restrict any use of the information to criminally investigate or prosecute any alcohol or drug abuse patient.[facility] the event this information is protected by the Federal Confidentiality of Alcohol and Drug Abuse Patient Records regulations: The Federal rules restrict any use of the information to criminally investigate or prosecute any alcohol or drug abuse patient.[facility] the event this information is protected by the Federal Confidentiality of Alcohol and Drug Abuse Patient Records regulations: The Federal rules restrict any use of the information to criminally investigate or prosecute any alcohol or drug abuse patient.[facility] Reason for Visit (unrecogniz ed section and content) Reason Comments Ear Pain Left ear pain, SALAS an d sinus x 4 days Reason Comments Neck Pain X 2 days, Left side, causing headache, numbness in left arm x2 days FOR RECORDS PERTAINING TO PATIENTS WHO ARE OR HAVE BEEN ENROLLED IN A CHEMICAL DEPENDENCY/SUBSTANCEABUSE PROGRAM, SOME INFORMATION MAY BE OMITTED. This clinical summary was aggregated from multiple sources. Caution should be exercised in using it in the provision of clinical care. This summary normalizes information from multiple sources, and as a consequence, information in this document may materially change the coding, format and clinical context of patient data. In addition, data may be omitted in some cases. CLINICAL DECISIONS SHOULD BE BASED ON THE PRIMARY CLINICAL RECORDS. [employer] provides no warranty or guarantee of the accuracy or completeness of information in this document.
== END 2023-12-29 17:00 | disposition left against medical advice (07) ==
LOC: ED 17:19
DX: Z53.21 Procedure and treatment not carried out due to patient leaving prior to being seen by health care provider (principal)

== ENCOUNTER 2023-12-29 20:39 | Emergency (ER) | payer OTHER, MEDICAID, SELFPAY ==
[2023-12-29 20:40] VITALS: BP 126/79; PULSE 73; RESP 18; TEMP 36.6; O2SAT 98; BMI 20.5
--- NOTE | 2023-12-29 21:13 | EDS_ITS ---
HPI History of Present Illness Chief Complaint: Other, Pain/Inj Detail of Chief Complaint: Left-sided neck pain Informant: patient Onset/Context/Timing Onset: Days (5 days) Narrative Narrative: Patient presents secondary to left-sided neck pain. 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 Her neck was slightly sore Monday evening but she woke Monday morning with difficulty moving and severe pain and spasm on the left side of her neck. She had some mild tingling over the backs of her fingers on her left hand. She was seen at an urgent care who advised her just to continue supportive care. She did go to work on Monday and works 10 hours, but was unable to go to work yesterday or today given pain. She went to the urgent care [facility] to see if she could get a work note and she was advised to come to the emergency room. Worker's Compensation paperwork is being filled out [facility] but had not proven previously completed. [facility] Medical History Anxiety Kidney stones Ovarian cyst Home Medications Hydrocortisone 2.5% / Lidocaine 5% ointment (cmpd) #1 ea 06/12/23 [Rx Last Taken Unknown] methylprednisolone 4 mg tablets in a dose pack (Medrol (Timbo)) See Rx Instructions PO PER PKG DIR #21 tabs 06/12/23 [Rx Last Taken Unknown] cyclobenzaprine 10 mg tablet 10 mg PO Q12H PRN Muscle Spasm #10 TABLETS 12/29/23 [Rx Last Taken Unknown] lidocaine 5 % topical patch (Lidoderm) 1 patch topical DAILY #15 ea 12/29/23 [Rx Last Taken Unknown] naproxen 500 mg tablet (Naprosyn) 500 mg PO BID PRN pain #20 tabs 12/29/23 [Rx Last Taken Unknown] Allergy/AdvReac Type Severity Reaction Status Date / Time No Known Allergies Allergy Verified 12/29/23 20:44 Surgical History Tonsillectomy planned Social History adopted: No household members: spouse housing: house current occupational status: unemployed current occupational exposures/hazards: No pets and animals: Yes history of recent travel: No sexually active: Yes Smoking Status: Never smoker second hand exposure: Yes alcohol intake: never substance use type: marijuana seatbelt use: always do you feel safe at home: Yes 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 Constitutional Constitutional ED: Denies chills or fever(s) Eyes Eyes: Denies discharge from eye(s) ENT ENT ED: Denies discharge from eye(s), rhinorrhea or sore throat Cardiovascular Cardiovascular: Denies chest pain Respiratory/Chest Respiratory/Chest: Denies cough or dyspnea Gastrointestinal Gastrointestinal: Denies abdominal pain, nausea or vomiting Musculoskeletal Musculoskeletal: Reports extremity pain and neck pain; Denies back pain Integumentary Denies Abrasions or rash Neurologic Neurologic: Reports paresthesias; Denies headache(s) or weakness Psychiatric Psychiatric: Denies anxiety or depression Allergic/Immunologic Allergic/Immunologic ED: Denies lip swelling or urticaria EXAM Physical Exam Const Vital Signs: 12/29/23 20:40 Temperature 97.9 F Temperature Source Temporal Pulse Rate 73 Respiratory Rate 18 Blood Pressure 126/79 H Blood Pressure Mean 94 Pulse Ox 98 Oxygen Delivery Method Room Air Positive well nourished and well developed General Appearance ED: well developed HEENT Reports moist mucous membranes Eyes EOMs intact bilaterally Chest Wall inspection of chest normal and palpation of chest normal Resp normal respiratory effort and clear to auscultation bilaterally Cardio regular rate and regular rhythm GI non-tender Palpation: soft Back/Spine Back/Spine Narrative: Muscular tenderness in the left cervical paraspinal muscles and over the left deltoid. No midline cervical tenderness. Good range of motion with slow pu rposeful movement. Extremity normal to inspection Neuro oriented x3, CN's II-XII intact bilaterally and no sensory deficits noted Motor Exam: strength 5/5 throughout Psych mental status grossly normal Skin no rashes or lesions noted MDM MDM MDM Narrative Medical decision making narrative: Patient has evidence of muscle spasm on exam. She will be written for naproxen and given Lidoderm patch here. I will also write her for Flexeril that she can take at home. She will be referred to corporate care for follow-up. She is written off work tomorrow but may return on the with restrictions. Discharge Plan Triage Chief Complaint: Other, Pain/Inj ED Provider: Overton,Dorothy Dx/Rx/DC Orders Clinical Impression: Muscle spasm, Acute strain of neck muscle Instructions: ED Muscle Spasm, ED Neck Sprain or Strain Prescriptions: New naproxen [Naprosyn] 500 mg tablet 500 mg PO BID PRN (Reason: pain) Qty: 20 0RF cyclobenzaprine 10 mg tablet 10 mg PO Q12H PRN (Reason: Muscle Spasm) Qty: 10 0RF lidocaine [Lidoderm] 5 % adhesive patch,medicated 1 patch topical DAILY Qty: 15 0RF Rx Instructions: leave on most painful area for up to 12 hrs No Action methylprednisolone [Medrol (Timbo)] 4 mg tablets,dose pack See Rx Instructions PO PER PKG DIR Qty: 21 0RF Rx Instructions: PO PER PKG DIR (DME) Hydrocortisone 2.5% / Lidocaine 5% ointment (cmpd) Ointment See Rx Instructions .Route Qty: 1 0RF Rx Instructions: As directed Stand Alone Forms: Work Status Form Primary Care Provider: Care Physician,No Primary Referrals: Corporate,Care [Group of Physicians] - 3-5 Days Care Physician,No Primary [Primary Care Provider] - Disposition Disposition: Home, Self Care Discharge Date/Time: 12/29/23 21:30
--- OUTSIDE RECORDS SUMMARY | 2023-12-29 21:20 | XMS RPT_ITS | CCD ---
Author Name Unknown Address [address] [place] [address] Organization [facility] Care Team Providers Care Engineering Administrator Name Role Phone ISRRAEL BLAS Unavailable Unavailcon [...] hema; Translations: [CALAMINE] Drug Allergy 03-26-2008 [facility] Other [employer] Repository Medications Current Medications Medication Drug Class(es) [...] 98.8 [degF] Estefania Meyers APRN.CNP Work Phone: [facility] 12-26-2023 15:24-0500 Body weight 56.25 kg Estefania Meyers APRN.CNP Work Phone: [facility] 12-26-2023 15:24-0500 Diastolic blood pressure 78 mm[Hg] Estefania Meyers APRN.CNP Work Phone: [facility] 12-26-2023 15:24-0500 Heart rate 74 /min Estefania Pendlebury OYSTER FARMER.NEUROPSYCHIATRIST Work Phone: [facility] 12-26-2023 15:24-0500 Respiratory rate 18 /min Estefania Pendlebury OYSTER FARMER.NEUROPSYCHIATRIST Work Phone: [facility] 12-26-2023 15:24-0500 SaO2% (BldA) [Mass fraction] 99 % Estefania Pendlebury OYSTER FARMER.NEUROPSYCHIATRIST Work Phone: [facility] 12-26-2023 15:24-0500 Systolic blood pressure 121 mm[Hg] Estefania Pendlebury OYSTER FARMER.NEUROPSYCHIATRIST Work Phone: [facility] 11-08-2023 14:20-0500 Body temperature 98.49 [degF] Naya Jefferson OYSTER FARMER.NEUROPSYCHIATRIST Work Phone: [facility] 11-08-2023 14:20-0500 Body weight 56.43 kg Naya Jefferson OYSTER FARMER.NEUROPSYCHIATRIST Work Phone: [facility] 11-08-2023 14:20-0500 Diastolic blood pressure 82 mm[Hg] Naya Jefferson OYSTER FARMER.NEUROPSYCHIATRIST Work Phone: [facility] 11-08-2023 14:20-0500 Heart rate 80 /min Naya Jefferson OYSTER FARMER.NEUROPSYCHIATRIST Work Phone: [facility] 11-08-2023 14:20-0500 Respiratory rate 18 /min Naya Jefferson OYSTER FARMER.NEUROPSYCHIATRIST Work Phone: [facility] 11-08-2023 14:20-0500 SaO2% (BldA) [Mass fraction] 98 % Naya Jefferson OYSTER FARMER.NEUROPSYCHIATRIST Work Phone: [facility] 11-08-2023 14:20-0500 Systolic blood pressure 128 mm[Hg] Naya Jefferson OYSTER FARMER.NEUROPSYCHIATRIST Work Phone: [facility] 12-28-2022 17:53-0500 Body temperature 98.49 [degF] Naya Jefferson OYSTER FARMER.NEUROPSYCHIATRIST Work Phone: [facility] 12-28-2022 17:53-0500 Body weight 52.62 kg Naya Jefferson OYSTER FARMER.NEUROPSYCHIATRIST Work Phone: [facility] 12-28-2022 17:53-0500 Diastolic blood pressure 70 mm[Hg] Naya Jefferson OYSTER FARMER.NEUROPSYCHIATRIST Work Phone: [facility] 12-28-2022 17:53-0500 Heart rate 78 /min Naya Jefferson OYSTER FARMER.NEUROPSYCHIATRIST Work Phone: [facility] 12-28-2022 17:53-0500 Respiratory rate 16 /min Naya Jefferson OYSTER FARMER.NEUROPSYCHIATRIST Work Phone: [facility] 12-28-2022 17:53-0500 SaO2% (BldA) [Mass fraction] 100 % Naya Jefferson OYSTER FARMER.NEUROPSYCHIATRIST Work Phone: [facility] 12-28-2022 17:53-0500 Systolic blood pressure 124 mm[Hg] Naya Jefferson OYSTER FARMER.NEUROPSYCHIATRIST Work Phone: [facility] 10-16-2022 01:20-0500 Diastolic Blood Pressure Non-Invasive [address] [facility] 10-16-2022 01:20-0500 Heart rate 75 /min CATHLEEN JHA MD [facility] 10-16-2022 01:20-0500 Respiratory rate 18 /min CATHLEEN JHA MD [facility] 10-16-2022 01:20-0500 Systolic Blood Pressure Non-Invasive [address] [facility] 10-15-2022 23:53-0500 Body temperature 98.6 [degF] CATHLEEN JHA MD [facility] 10-15-2022 23:53-0500 Diastolic Blood Pressure Non-Invasive 74 [address] [facility] 10-15-2022 23:53-0500 Heart rate 86 /min CATHLEEN JHA MD [facility] 10-15-2022 23:53-0500 Respiratory rate 18 /min CATHLEEN JHA MD [facility] 10-15-2022 23:53-0500 Systolic Blood Pressure Non-Invasive [address] [facility] Encounters Encounter Date Encounter Type Care Provider Facility Start: 12-26-2023 End: 12-26-2023 ambulatory Facility:[facility] Start: 12-26-2023 End: 12-26-2023 Office outpatient visit 15 minutes Estefania Meyers APRN.CNP Work Phone: [facility] Plan of Treatment Date Care Activity Detail Author Start: 11-20-2023 Depression Assessment [facility] Start: 07-21-2023 Influenza vaccination Influenza Vacc ine (#1) [facility] Start: 11-20-2022 DEPRESSION ASSESSMENT DEPRESSION ASS [facility] Start: 07-21-2022 Influenza vaccination INFLUENZA (#1) [facility] Start: 02-06-2019 Urine microalbumin profile [facility] Start: 2017 PAP TESTING PAP TESTING [facility] Start: 2017 Screening for malign ant neoplasm of cervix Pap Testing [facility] Start: 2014 HEPATITIS C SCREENING HEPATITIS C [facility] Start: 2014 Hepatitis C screening Hepatitis C [facility] Start: 2014 HIV SCREENING HIV SCREENING [facility] Start: 2014 HIV screening HIV Screening [facility] Start: 2010 PEDS TO ADULT TRANSI TION ANNUAL ASSESSMENT PEDS TO ADULT TRANSITION ANNUAL ASSESSMENT [facility] Start: 08-09-2009 HPV VACCINE (2 - 2-d ose series) HPV VACCINE (2 - 2-dose series) [facility] Start: 2008 PEDS TO ADULT TRANSI TION INITIAL DISCUSSION PEDS TO ADULT TRANSITION INITIAL DISCUSSION [facility] Start: 06-24-1997 COVID-19 VACCINE (#1) COVID-19 VACCI NE (#1) [facility] Immunizations Immunization Date Immunization Notes Care Provider Jareth sanon 08-12-2009 influenza virus vaccine, unspecified formulation Naya Jefferson OYSTER FARMER.[facility] Work Phone: [facility] 02-06-2009 human papilloma viru s vaccine, quadrivalent Naya Jefferson OYSTER FARMER.NEUROPSYCHIATRIST Work Phone: [facility] Work Phone: 02-06-2009 tetanus toxoid, redu parag diphtheria toxoid, and acellular pertussis vaccine, adsorbed Naya Jefferson OYSTER FARMER.NEUROPSYCHIATRIST Work Phone: [facility] Work Phone: 10-25-2007 influenza virus vaccine, unspecified formulation Naya Jefferson OYSTER FARMER.NEUROPSYCHIATRIST Work Phone: [facility] Work Phone: 09-18-2006 influenza virus vaccine, unspecified formulation Naya Jefferson OYSTER FARMER.NEUROPSYCHIATRIST Work Phone: [facility] 04-12-2002 measles, mumps and rubella virus vaccine Naya Jefferson OYSTER FARMER.NEUROPSYCHIATRIST Work Phone: [facility] 04-12-2002 trivalent poliovirus vaccine, live, oral Naya Jefferson OYSTER FARMER.NEUROPSYCHIATRIST Work Phone: [facility] 03-24-1998 diphtheria, tetanus toxoids and acellular pertussis vaccine Naya Jefferson OYSTER FARMER.NEUROPSYCHIATRIST Work Phone: [facility] 03-24-1998 haemophilus influenz ae type b vaccine, HbOC conjugate Naya Jefferson OYSTER FARMER.NEUROPSYCHIATRIST Work Phone: [facility] 03-24-1998 measles, mumps and rubella virus vaccine Naya Jefferson OYSTER FARMER.NEUROPSYCHIATRIST Work Phone: [facility] 08-29-1997 diphtheria, tetanus toxoids and acellular pertussis vaccine Naya Jefferson OYSTER FARMER.NEUROPSYCHIATRIST Work Phone: [facility] 08-29-1997 haemophilus influenz ae type b vaccine, HbOC conjugate Naya Jefferson OYSTER FARMER.NEUROPSYCHIATRIST Work Phone: [facility] 08-29-1997 hepatitis B vaccine, pediatric or pediatric/adolescent dosage Naya Jefferson OYSTER FARMER.NEUROPSYCHIATRIST Work Phone: [facility] 08-29-1997 trivalent poliovirus vaccine, live, oral Naya Jefferson OYSTER FARMER.NEUROPSYCHIATRIST Work Phone: [facility] 06-13-1997 diphtheria, tetanus toxoids and acellular pertussis vaccine Naya Jefferson OYSTER FARMER.NEUROPSYCHIATRIST Work Phone: [facility] 06-13-1997 haemophilus influenz ae type b vaccine, HbOC conjugate Naya Jefferson OYSTER FARMER.NEUROPSYCHIATRIST Work Phone: [facility] 06-13-1997 trivalent poliovirus vaccine, live, oral Naya Jefferson OYSTER FARMER.NEUROPSYCHIATRIST Work Phone: [facility] 02-12-1997 diphtheria, tetanus toxoids and acellular pertussis vaccine Naya Jefferson OYSTER FARMER.NEUROPSYCHIATRIST Work Phone: [facility] 02-12-1997 haemophilus influenz ae type b vaccine, HbOC conjugate Naya Jefferson OYSTER FARMER.NEUROPSYCHIATRIST Work Phone: [facility] 02-12-1997 hepatitis B vaccine, pediatric or pediatric/adolescent dosage Naya Jefferson OYSTER FARMER.NEUROPSYCHIATRIST Work Phone: [facility] 02-12-1997 trivalent poliovirus vaccine, live, oral Naya Jefferson OYSTER FARMER.NEUROPSYCHIATRIST Work Phone: [facility] 1996 hepatitis B vaccine, pediatric or pediatric/adolescent dosage Naya Jefferson OYSTER FARMER.NEUROPSYCHIATRIST Work Phone: [facility] Payers Date Payer Category Payer Medicaid [id number] 2022 Unknown [id number] 2022 Unknown [id number] 1996 Unknown [id number] 1996 Unknown [id number] [id number] 1996 Unknown [id number] [id number]. [id number] 1996 Unknown [id number] [id number]. [id number] Social History Date Type Detail Facility Tobacco smoking status [facility] Sex Assigned At Female [facility] Start: 12-28-2022 Tobacco smoking stat [facility] Ex-smoker [facility] Work Phone: History of tobacco use Current smoker [facility] Work Phone: Start: 12-28-2022 Tobacco use and exposure Smokeless tobacco non-user [facility] Work Phone: Start: 12-28-2022 End: 12-26-2023 Alcohol intake Current drinker of alcohol (finding) [facility] Start: 12-28-2022 Tobacco Comment [facility] Start: 09-02-2018 Alcohol Comment socially [facility] Start: 1996 Sex Assigned At Not on file [facility] Start: 12-28-2022 End: 11-08-2023 History of Social function [facility] Start: 12-28-2022 End: 11-08-2023 Tobacco use panel [facility] PHQ-2 Score 0 [facility] Functional Status Date Assessment Result Facility 10-16-2022 Functional Status [facility] Functional Status Standard Safet y ID band on, Call device within reach, Bed in low position, Wheels locked, Upper/Half-Length side-rails up, Phone within reach, personal items within reach, Visitor at bedside, Safety level maintained [facility] Mental Status Date Assessment Result Facility 10-16-2022 Mental Status Orientation Oriented x 4 [facility] 10-15-2022 Mental Status [facility] Clinical Notes 10-16-2022 to 12-26-2023 Estefania Meyers APRN.NEUROPSYCHIATRIST - 12/26/2023 3:41 PM Naya Cotton APRN.NEUROPSYCHIATRIST - 11/08/2023 2:35 PM Yu Jefferson APRN.NEUROPSYCHIATRIST - 12/28/2022 6:45 PM EST Note Date & Type Note Facility 12-26-2023 Note HNO ID: [id number] Author: ESTEFANIA MEYERS APRN.NEUROPSYCHIATRIST Service: ? Author Type: Nurse Practitioner Type: [...] of care. This note was generated using [employer] software. It may contain errors in wording, punctuation, or spelling. Estefania Meyers APRN.[facility] 12-26-2023 History of Present illness Narrative [...] Laterality Date TONSILLECTOMY & ADENOIDECTOMY <AGE 13 [id number] ALLERGIES Calamine MEDICATIONS tamsulosin (FLOMAX) 0.4 mg [...] of care. This note was generated using [employer] software. It may contain errors in wording, punctuation, or spelling. Estefania Meyers APRN.VERO documented in this encounter [facility] 11-08-2023 Note HNO ID: [id number] Author: Naya Jefferson APRN.VERO Service: ? Author Type: Nurse Practitioner Type: Progress Notes Filed: 11/08/2023 2:45 PM Note Text: This note was created using [employer]. Subjective Alicia Cerda is a 27 year old female. 27 year old female with no significant PMH presents for illness. Acute onset 4 days ago +sinus pressure +headache +left ear pain Mild cough Denies dyspnea Denies SOB Denies abdominal pain Denies N/V/D Denies tobacco usage. Denies using homeopathic or OTC medications SKEIN SPOOLER The history is provided by the patient. No equipment maintenance tech was used. Ear Pain This is a [...] is no dist (more content not included)... [facility] 11-08-2023 History of Present illness Narrative This note was created using [employer]. Subjective Alicia Cerad is a 27 year old female. 27 year old female with no significant PMH presents for illness. Acute onset 4 days ago +sinus pressure +headache +left ear pain Mild cough Denies dyspnea Denies SOB Denies abdominal pain Denies N/V/D Denies tobacco usage. Denies using homeopathic or OTC medications SKEIN SPOOLER The history is provided by the patient. No equipment maintenance tech was used. Ear Pain This is a [...] Laterality Date TONSILLECTOMY & ADENOIDECTOMY <AGE 13 [id number] ALLERGIES Calamine MEDICATIONS amoxicillin-clavulanate potassium (AUGMENTIN) 875-125 [...] if symptoms persist or worsen. Naya Jefferson APRN.NEUROPSYCHIATRIST documented in this encounter [facility] 12-28-2022 Note HNO ID: [id number] Author: Naya Jefferson APRN.NEUROPSYCHIATRIST Service: ? Author Type: Nurse Practitioner Type: Progress Notes Filed: 12/29/2022 9:12 AM Note Text: This note was created using [employer]. Subjective Alicia Cerda is a 27 year [...] by the patient and the spouse. No equipment maintenance tech was used. Dental Problem This is a [...] nursing note reviewed. Exam conducted with a weight guesser present. Constitutional: General: She is not in [...] (#16) and dental (more content not included)... [facility] 12-28-2022 History of Present illness Narrative Images from the original note were not included. This note was created using [employer]. Subjective Alicia Cerda is a 27 year [...] by the patient and the spouse. No equipment maintenance tech was used. Dental Problem This is a [...] Laterality Date TONSILLECTOMY & ADENOIDECTOMY <AGE 13 [id number] ALLERGIES Calamine MEDICATIONS amoxicillin-clavulanic acid (AUGMENTIN) 875-125 [...] nursing note reviewed. Exam conducted with a weight guesser present. Constitutional: General: She is not in [...] if no improvement Caitlin Ontiveros TEACHING PROVIDER (Physician/PA/OYSTER FARMER) NOTE OF PERSONAL INVOLVEMENT IN CARE: I have personally seen and examined the patient and performed the medical decision-making components. I have reviewed the Advanced Practice Registered Nurse (OYSTER FARMER) Student's documentation and verified the findings in the note as written. Any additions or changes are noted in bold/italics. Signature: Naya Jefferson Date: 12/29/2022 Time: 9:11 AM documented in this encounter [facility] 10-18-2022 Note . MICRO - Microbiology [...] Locations *1: This test was performed at: [facility], [address] [place] [address], [id number]- , [facility] ([place]) 10-16-2022 Evaluation + Plan note Diagnostic Tests PendingUrine Culture 10/16/22 [facility] 10-16-2022 Hospital Discharge instructions Patient Education 10/16/2022 [...] swelling in the outer vaginal area (labia) 9248-2408 [employer]. [address] [place] [address], [place] [address]. All rights reserved. This information is not [...] or as directed by your healthcare provider. 2499-6610 [employer]. [address] [place] [address]. All rights reserved. This information is not intended as a substitute for professional medical care. Always follow your healthcare professional's instructions. Follow Up Care 10/15/2022 23:12:02 With:ELISE MADRID MD Address: [facility] [address] [place] [address] [phone] When:2-[address] [facility] 10-16-2022 Note Discharge Instructions Thank you for allowing [facility] to assist you with your healthcare needs. [...] MADRID MD When Within 2-4 days Where: [facility] [address] [place] [address] [id number] Allergies NKA Medications Please ask your primary [...] swelling in the outer vaginal area (labia) 0761-4126 [employer]. [address] [place] [address]. All rights reserved. This information is not [...] or as directed by your healthcare provider. 0724-6041 [employer]. [address] [place] [address]. All rights reserved. This information is not intended as a substitute for professional medical care. Always follow your healthcare professional's instructions. Additional Information VACCINATE! IT SAVES LIVES! Members of the community who have not yet received the COVID-19 vaccine and would like to receive it can visit one of [facility] vaccine clinics. There are many vaccine clinic locations within the [facility]. For locations and available times, please visit [email or web address]. It is important to note that some COVID mobile vaccine clinics are held outdoors and may be canceled in rainy or stormy conditions. To learn more about pediatric vaccinations (ages 5-11), we invite you to visit the [facility] webpage. [email or web address] [email or web address]-Mfxwa-Vhqajdthmiu-Freq cziphx-[email or web address]-Iyarjctfu.html To learn more about the COVID-19 vaccine, we invite you to visit the [place] website for a list of frequently asked questions. [email or web address]-[email or web address]-L requently_[email or web address]-Questions.pdf [facility] Patient Portal Access Instructions: Stay connected with your healthcare team and access your personal medical information anytime with the [place] [facility] Patient Portal. If you would like a full copy of your medical records please contact the [facility] Medical Records Department Monday through Monday between 8a.m. and 4:30p.m. Please follow the directions below to access the portal: 1.Access the email account you provided upon registration to the [facility].2.Look for an invitation email from [facility].3.Open the email and access the invitation link: Accept Invitation to [place] [employer].Fill in the required lin to create your account. Sign into [email or web address] with your username and password that you [...] you will allow to register on the [place] [facility] Patient Portal for access to your information. You can also access the [place] [facility] Patient Portal on the [employer] pascual. Simply click on Health Records under [...] Call your local pharmacy or go to http://bit.Zeptor/8I9Ii8g to find one close to you.3.Make use of household items: Use cat litter or old coffee grounds to dispose medications if other options are not available. Mix your drugs with these household products, seal them in an airtight container and throw it into the garbage. Call [facility]: [phone] to be sure your drugs can be [...] aware that I should contact my doctor. Patient/Aquatics Director Signature: Date/Time: Relationship to Patient: Witness Name/Signature: Date/Time: [facility] 10-16-2022 Note ORIGINAL EXAMINATION: ULTRASOUND OF THE [...] Sign Date: 10/16/2022 2:41:17 AM Ordering Provider: [facility] 10-16-2022 Note ORIGINAL EXAMINATION: ULTRASOUND OF THE [...] Sign Date: 10/16/2022 2:41:17 AM Ordering Provider: [facility] Acute otitis media, left- Primary Unspecified otitis media Rhinosinusitis Unspecified sinusitis (chronic) [facility] Upper back pain- Primary [facility] N[facility]ative No data available for this section [facility] Summary Purpose Family History No Family History [...] DATE CREATED AUTHOR AUTHOR'S ORGANIZ ATION 12/29/2019 [facility] DATE CREATED AUTHOR AUTHOR'S ORGANIZ ATION 05/22/2022 [facility] DATE CREATED AUTHOR AUTHOR'S ORGANIZ ATION 10/26/2022 [facility] DATE CREATED AUTHOR AUTHOR'S ORGANIZ ATION 03/21/2023 [facility] DATE CREATED AUTHOR AUTHOR'S ORGANIZ ATION 12/27/2023 [facility] Care Team (unrecognized sect ion and content) Care Team Personnel Name: PHYSICIAN, NOT RECORDED Member Role: Primary Care Physician Name: CATHLEEN JHA MD Position: ED Physician Member Role: Ordering Physician Address: Address: [facility] [address] [place], [place] [address] Care Team Related Persons Name: AMBER JACOBSON Source Comments (unrecognize d section and content) In the event this informatio n is protected by the Federal Confidentiality of Alcohol and Drug Abuse Patient Records regulations: The Federal rules restrict any use of the information to criminally investigate or prosecute any alcohol or drug abuse patient.[facility] the event this information is protected by the Federal Confidentiality of Alcohol and Drug Abuse Patient Records regulations: The Federal rules restrict any use of the information to criminally investigate or prosecute any alcohol or drug abuse patient.[facility] the event this information is protected by the Federal Confidentiality of Alcohol and Drug Abuse Patient Records regulations: The Federal rules restrict any use of the information to criminally investigate or prosecute any alcohol or drug abuse patient.[facility] Reason for Visit (unrecogniz ed section [...] BE BASED ON THE PRIMARY CLINICAL RECORDS. [employer] provides no warranty or guarantee of the accuracy or completeness of information in this document.
[2023-12-29] MEDS: Naproxen 500 MG Tablet PO (21:24)
[2023-12-29] MEDS: Lidocaine 5% Patch 1 PATCH TOPICAL (21:24)
== END 2023-12-29 21:30 | disposition home or self-care (01) ==
LOC: ED 21:17
PROVIDERS: Emergency Provider Emergency Medicine; Visit Provider Emergency Medicine
DX: M62.838 Other muscle spasm (principal); S16.1XXA Strain of muscle, fascia and tendon at neck level, initial encounter; F12.90 Cannabis use, unspecified, uncomplicated; X58.XXXA Exposure to other specified factors, initial encounter
CPT/HCPCS: 99282

== ENCOUNTER 2024-07-06 11:06 | Emergency (ER) | payer MEDICAID, SELFPAY ==
[2024-07-06 11:07] VITALS: BP 122/88; PULSE 91; RESP 22; TEMP 36.4; O2SAT 100
--- NOTE | 2024-07-06 11:22 | CT_ITS ---
EXAM: CT ABDOMEN AND PELVIS WITHOUT INTRAVENOUS CONTRAST CLINICAL INDICATION: Pain in right side TECHNIQUE: Helically acquired images were obtained of the abdomen and pelvis without intravenous contrast. This CT exam was performed using one or more of the following dose reduction techniques: automated exposure control, adjustment of the mA and/or kV according to patient size, and/or use of iterative reconstruction technique. COMPARISON: Pelvic ultrasound, 01/29/2021 FINDINGS: LOWER THORAX: No significant abnormality. Lung bases are clear. No cardiomegaly. No significant pericardial effusion. ABDOMEN: LIVER: No significant abnormality. Homogeneous. GALLBLADDER AND BILE DUCTS: No significant abnormality. No calcified gallstones. No gallbladder distention or wall edema. No intra- or extrahepatic biliary ductal dilation. PANCREAS: No significant abnormality. No focal cystic mass. SPLEEN: No significant abnormality. Normal size without focal cystic or solid mass. ADRENALS: No significant abnormality. No nodules. KIDNEYS AND URETERS: Punctate left lower pole calyceal stones. No discrete right-sided urolithiasis and no evidence of ureteral stone or hydronephrosis on either side. STOMACH AND BOWEL: No significant abnormality. No stomach or bowel distention. No focal inflammatory change. PELVIS: APPENDIX: The partially visualized appendix appears normal. BLADDER: No significant abnormality. REPRODUCTIVE: Normal as visualized. No mass. ABDOMEN and PELVIS: INTRAPERITONEAL SPACE: Small amount of free fluid in the pelvis may be physiologic. No free air. BONES/JOINTS: No significant abnormality. No suspicious lytic or blastic abnormality. SOFT TISSUES: Small fat-containing umbilical hernia. VASCULATURE: No significant abnormality. Abdominal aorta is non-dilated. LYMPH NODES: No significant abnormality. No enlarged lymph nodes. CT/Abdomen/Pelvis without Cont IMPRESSION: 1. Punctate left lower pole calyceal stones. No discrete right-sided urolithiasis and no evidence of ureteral stone or hydronephrosis on either side. 2. Small amount of free fluid in the pelvis may be physiologic. Electronically Signed: Cezar Patel DO at 12:11 EDT ,
--- NOTE | 2024-07-06 11:23 | EDS_ITS ---
HPI HPI - GI History of Present Illness Chief Complaint: Abd Pain Informant: patient Abdominal Pain/Flank Pain Onset: Today Context: Sudden Onset Timing: Continuous Location: Right Flank and - (Right flank and suprapubic.) Current Severity: Moderate Maximum Severity: Moderate Worsened by: Nothing Relieved by: Nothing Nausea/Vomiting/Emesis GI Symptom: Positive for Nausea Severity: Mild Diarrhea/Melena/Hematochezia GI Symptom: Negative for Diarrhea, Melena or Hematochezia Associated Symptoms Associated Symptoms: Negative for Dysuria, Frequency, Hematuria or Urgency Narrative Narrative: 28-year-old female history of both prior ovarian cysts and kidney stones. G3, P2 Ab1 with a having a miscarriage. Does not believe she is her last menstrual period was 3 weeks ago she is due another week. States this morning around 9 AM she is woke up with sleep with right flank and suprapubic abdominal pain. More so on the right side. Denies any vomiting mild nausea. No diarrhea constipation. No dysuria. No trauma. No fever or chills. No vaginal discharge. Prior similar symptoms: Yes Recent Illness/Hospitalization: No PFSH PFSH Medical History Anxiety Ovarian cyst Kidney stones Home Medications ?Medication ?Instructions ?Recorded ?Last Taken ?Type Hydrocortisone 2.5% / Lidocaine 5% #1 ea 06/12/23 Unknown Rx ointment (cmpd) methylprednisolone 4 mg tablets in See Rx Instructions PO PER PKG DIR 06/12/23 Unknown Rx a dose pack (Medrol (Timbo)) #21 tabs cyclobenzaprine 10 mg tablet 10 mg PO Q12H PRN Muscle Spasm #10 12/29/23 Unknown Rx TABLETS lidocaine 5 % topical patch 1 patch topical DAILY #15 ea 12/29/23 Unknown Rx (Lidoderm) naproxen 500 mg tablet (Naprosyn) 500 mg PO BID PRN pain #20 tabs 12/29/23 Unknown Rx Allergy/AdvReac Type Severity Reaction Status Date / Time No Known Allergies Allergy Verified 12/29/23 20:44 Surgical History Tonsillectomy planned Social History adopted: No household members: spouse housing: house current occupational status: unemployed current occupational exposures/hazards: No pets and animals: Yes history of recent travel: No sexually active: Yes Smoking Status: Never smoker second hand exposure: Yes alcohol intake: never substance use type: marijuana seatbelt use: always do you feel safe at home: Yes 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 Suprapubic and right flank abdominal pain. Constitutional Constitutional ED: Denies fever(s) ENT ENT ED: Denies ear pain Cardiovascular Cardiovascular: Denies chest pain Respiratory/Chest Respiratory/Chest: Denies cough or dyspnea Gastrointestinal Gastrointestinal: Reports abdominal pain and nausea; Denies constipation, diarr hea, melena or vomiting Genitourinary Genitourinary ED: Denies dysuria or hematuria Musculoskeletal Musculoskeletal: Denies arthralgias or back pain Integumentary Denies abscess or Abrasions Neurologic Neurologic: Denies headache(s) Psychiatric Psychiatric: Denies anxiety Endocrine Endocrinology: Denies polydipsia Hematologic/Lymphatic Hematologic/Lymphatic: Denies easy bleeding Allergic/Immunologic Allergic/Immunologic ED: Denies mouth swelling or tongue swelling EXAM Physical Exam Narrative Exam Narrative: 4-year-old female complaining of pain. Vital signs are stable afebrile. H EENT exam unremarkable. Lungs are clear. Heart regular rhythm rate about 90 no murmur. Chest wall ribs nontender. Abdomen soft nondistended normal bowel sounds without peritoneal signs. No McBurney's point or right upper quadrant tenderness. Maybe mild suprapubic tenderness. No bruising. Back no reproducible pain. No bruising. No CVA tenderness. Moving all 4 extremities. Nontender no edema. She is awake and alert. Answering questions following commands. Const Vital Signs: 07/06/24 11:07 Temperature 97.5 F L Temperature Source Temporal Pulse Rate 91 Respiratory Rate 22 H Blood Pressure 122/88 H Blood Pressure Mean 99 Pulse Ox 100 Oxygen Delivery Method Room Air Positive well nourished and well developed; Negative for obese, cachectic, contractures or unkempt General Appearance ED: well developed and NAD; Negative for unkempt, cachectic, contractures or pallor Nutritional Appearance: Negative for cachectic or obese HEENT Reports moist mucous membranes normocephalic and atraumatic; Negative for trauma or tenderness Eyes PERRL and EOMs intact bilaterally General Eye ED: Negative for pale conjunctiva, scleral icterus or other Neck no lymphadenopathy, supple and no JVD General: Negative for tenderness Carotids: Negative for other Lymph Lymphatic: Negative for other Resp normal respiratory effort and clear to auscultation bilaterally Effort and Inspection: Negative for respiratory distress Auscultation: Negative for rales, rhonchi, wheezes or diminished lung sounds Cardio regular rate, regular rhythm, S1 normal heart sound, S2 normal heart sound and no murmurs Rate: Negative for bradycardia or tachycardic Rhythm: Negative for abnormal rhythm GI non-distended and no masses; Negative for non-tender GI Narrative: Mild suprapubic tenderness. No CVA tenderness. Inspection: Negative for abdominal distention Auscultation: normoactive bowel sounds Palpation: soft and tender; Negative for guarding or rebound tenderness present Back/Spine no CVA tenderness General Back: Negative for CVA tenderness Cervical Spine: Negative for cervical spine tenderness Thoracic Spine / Upper Back: Negative for thoracic spinal tenderness Lumbar Spine / Lower Back: Negative for lumbar spinal tenderness Extremity full ROM General Extremety ED: Negative for edema or tenderness General Extremity: Negative for edema Neuro CN's II-XII intact bilaterally and moves all extremities Sensorium / Orientation: alert, oriented to person, oriented to place and oriented to time; Negative for orientation impaired or confused Motor Exam: strength 5/5 throughout Psych mental status grossly normal and thought process normal Appearance: Negative for unkempt Attitude: No agitated Mood & Affect: Negative for depressed, anxious or tearful Skin no wounds General Skin Exam: Negative for jaundice or pallor Lesions: no lesions Rashes: no rashes Trauma: Negative for abrasion Nails: Negative for discolored MDM MDM MDM Narrative Medical decision making narrative: 28-year-old female history of prior kidney stones and ovarian cyst complaining of right flank and suprapubic abdominal pain. Last menstrual period was about 3 weeks ago. Denies any dysuria. CAT scan and labs to be obtained. Differential would include kidney stone versus UTI versus pyelo versus appendectomy appendicitis which I do not think this is versus ectopic versus other. She was treated with morphine and Zofran. Repeat exam at 12:15 PM patient is doing well. Looks much improved. She will be given Toradol also for pain. She had I went over her labs. With blood in her urine this may be a passed stone. Otherwise her exam is benign. She will be discharged home. Tylenol Motrin for pain. History & Record Review Discussion w/independent historian: Patient Additional record(s) reviewed:: Prior inpatient record, Prior outpatient record, Prior ED visit and Prior labs Lab Data Attestation: I reviewed the patient's lab results. Lab results narrative: CBC normal. White count of 5. H&H 13 and 42. Platelets 374. Electrolytes show a gap of 4. BUN and creatinine are normal. Glucose 95. Serum test negative. UA shows greater than 100 red cells no white cells or bacteria. No nitrates. CAT scan does not show any acute stone. Physiologic fluid in the pelvis. Labs: Laboratory Results - last 24 hr 07/06/24 11:29 WBC 5.7 RBC 4.60 Hgb 13.8 Hct 42.6 MCV 92.6 MCH 30.0 MCHC 32.4 RDW Std Deviation 44.6 H RDW Coeff of Lili 13.1 Plt Count 374 MPV 11.0 Immature Gran % (Auto) 0.200 Neut % (Auto) 53.8 Lymph % (Auto) 29.2 [place] % (Auto) 8.0 Eos % (Auto) 7.6 H Baso % (Auto) 1.2 H Absolute Neuts (auto) 3.0 Absolute Lymphs (auto) 1.65 Nucleated RBC % 0 Sodium 138 Potassium 3.8 Chloride 107 Carbon Dioxide 27.0 Anion Gap 4 L BUN 14 Creatinine 0.78 Estim Creat Clear Calc 93.21 Est GFR (MDRD) Af Amer 113 Est GFR (MDRD) Non-Af 93 BUN/Creatinine Ratio 17.9 Glucose 95 Calcium 8.8 Serum , Qual NEGATIVE Urine Color Yellow Urine Clarity Cloudy Urine pH 7.0 Ur Specific [place] 1.010 Urine Protein 30 H Urine Glucose (UA) Normal Urine Ketones Negative Urine Occult Blood 250 H Urine Nitrite Negative Urine Bilirubin Negative Urine Urobilinogen 1 H Ur Leukocyte Esterase 25 H Urine RBC > 100 SEEN Urine WBC 0 SEEN Ur Squamous Epith Cells 0-5 SEEN Urine Bacteria 0 SEEN Urine Mucus 0 SEEN Radiography Diagnostic Testing: Clinical Impression(s) from Imaging Studies Abdomen/Pelvis CT 07/06/24 11:22 IMPRESSION: 1. Punctate left lower pole calyceal stones. No discrete right-sided urolithiasis and no evidence of ureteral stone or hydronephrosis on either side. 2. Small amount of free fluid in the pelvis may be physiologic. Electronically Signed: Cezar Patel DO at 12:11 EDT , Discharge Plan Triage Chief Complaint: Abd Pain ED Provider: Blue Mccracken Dx/Rx/DC Orders Clinical Impression: Kidney stone Instructions: Understanding Kidney Stones Prescriptions: No Action methylprednisolone [Medrol (Timbo)] 4 mg tablets,dose pack See Rx Instructions PO PER PKG DIR Qty: 21 0RF Rx Instructions: PO PER PKG DIR (DME) Hydrocortisone 2.5% / Lidocaine 5% ointment (cmpd) Ointment See Rx Instructions .Route Qty: 1 0RF Rx Instructions: As directed naproxen [Naprosyn] 500 mg tablet 500 mg PO BID PRN (Reason: pain) Qty: 20 0RF cyclobenzaprine 10 mg tablet 10 mg PO Q12H PRN (Reason: Muscle Spasm) Qty: 10 0RF lidocaine [Lidoderm] 5 % adhesive patch,medicated 1 patch topical DAILY Qty: 15 0RF Rx Instructions: leave on most painful area for up to 12 hrs Primary Care Provider: Care Physician,No Primary Referrals: Care Physician,No Primary [Primary Care Provider] - Activity Restrictions/Additional Instructions: Plenty of fluids and rest strain your urine for a possible passed kidney stone. Motrin and Tylenol for pain. Follow-up if not improving or return if worse. Print Language: Dominican Disposition Disposition: Home, Self Care
[2024-07-06 11:31] LABS: Bacteria 0 SEEN /hpf (None Seen); Mucous, Urine 0 SEEN /hpf (<or=2+); White Blood Cells 0 SEEN /hpf (0-5)
[2024-07-06 11:33] LABS: Absolute Lymphocyte Count 1.65 X10^3/uL (0.83-4.51); Basophil# 0.07 X10^3/uL; Basophil% 1.2 % (0-1); Eosinophil# 0.43 X10^3/uL; Eosinophils% 7.6 % (0-5); Hematocrit 42.6 % (37-47); Hemoglobin 13.8 g/dL (12.0-15.0); Lymphocyte # 1.65 X10^3/ul (0.83-4.51); Lymphocyte % 29.2 % (19-41); Mean Corp Hgb Conc 32.4 g/dL (32-36); Mean Corpuscular Volume 92.6 fL (81-99); Monocyte# 0.45 X10^3/uL; NRBC Flagged by Analyzer 0 % (0-5); Neutrophil # 3.04 X10^3/uL (2.7-7.7); Neutrophil % 53.8 % (47-70); Platelet Count 374 K/mm3 (150-450); RBC Distribution Width CV 13.1 % (11.6-14.6); RBC Distribution Width SD 44.6 fl (35.1-43.9); White Blood Count 5.7 K/mm3 (4.4-11.0)
[2024-07-06 11:34] LABS: Color, Urine Yellow (Yellow); Glucose, Dipstick Normal (Normal); Ketone-Dipstick Negative (Negative); Leukocyte Esterase-Dipstick 25 /ul (Negative); Nitrite-Dipstick Negative (Negative); Occult Blood-Urine 250 /ul (Negative); Protein-Dipstick 30 mg/dl (Negative); Urine Bilirubin Dipstick Negative (Negative); Urine Clarity Cloudy (Clear); Urine Urobilinogen 1 mg/dl (Normal)
[2024-07-06 11:40] LABS: Internal QC Validated? YES +Cl - CLEAR BKGD; Pregnancy, Serum, hCG Quali. NEGATIVE Negative; Red Blood Cells-Urine > 100 SEEN /hpf (0-5); Squamous Epithelial Cells - UA 0-5 SEEN /hpf (5-10)
[2024-07-06 11:47] LABS: Anion Gap 4 (5-15); BUN 14 mg/dL (7-18); BUN/Creat Ratio 17.9 RATIO (10-20); Calcium,Total 8.8 mg/dL (8.5-10.1); Chloride 107 mmol/L (98-107); Creatinine, Serum 0.78 mg/dL (0.55-1.02); EST Glomerular Filtration Rate 93 mL/min (>60); Est Glom Filt Rate - Afr Amer 113 mL/min (>60); Estimated Creatinine Clearance 93.21 ml/min; Glucose 95 mg/dL (74-106); Potassium 3.8 mmol/L (3.5-5.1); Sodium Level 138 mmol/L (136-145)
[2024-07-06 12:34] VITALS: BP 97/84; PULSE 62; RESP 14; TEMP 36.3; O2SAT 98
== END 2024-07-06 12:36 | disposition home or self-care (01) ==
PROVIDERS: Emergency Provider Emergency Medicine; Visit Provider Emergency Medicine
DX: N20.0 Calculus of kidney (principal)
CPT/HCPCS: 74176; 80048; 81001; 84703; 85025; 96374; 96375; 96376; 99284; A4216; J2405

== ENCOUNTER 2025-03-07 15:11 | Emergency (ER) | payer MEDICAID, SELFPAY ==
[2025-03-07 15:12] VITALS: BP 169/89; PULSE 92; RESP 16; TEMP 36.4; O2SAT 96; BMI 19.6
--- NOTE | 2025-03-07 15:40 | EDS_ITS ---
HPI HPI - Female History of Present Illness Chief Complaint: Complaint Narrative Narrative: Chief complaint and HPI: Dysuria and right flank pain. 29-year-old female with past medical history of urolithiasis presents for evaluation of dysuria and right flank pain. Onset yesterday evening. Patient states that she has a history of 4 previous kidney stones. She has never seen a urologist. Last evening developed dysuria, urinary frequency, and now right flank pain. Denies any fever, chills, shortness of breath, chest pain, nausea, vomiting, diarrhea, constipation. Does not believe herself to be however there is a chance. Review of systems: See HPI Medications: As listed on the chart Allergies: As listed on the chart PFSH: Per chart Vital signs: As listed on the chart. Reviewed. Physical exam: Gen: A&O x3, NAD Head: Normocephalic, atraumatic Eyes: No sclera icterus, conjunctiva clear ENT: Moist mucous membranes Neck: Trachea midline, No JVD CV: RRR, no murmurs, no peripheral edema Resp: Lungs CTA BL, no w/r/c GI: Abd soft, non-distended, nontender, no r/r/g : No CVA tenderness Musc: Full ROM, no deformity Skin: Warm, dry Neuro: Alert, oriented, grossly intact, sensation intact Psych: Cooperative, appropriate mood and affect [facility] Medical History Anxiety Ovarian cyst Kidney stones Home Medications ?Medication ?Instructions ?Recorded ?Last Taken ?Type Hydrocortisone 2.5% / Lidocaine 5% #1 ea 06/12/23 Unkn own Rx ointment (cmpd) methylprednisolone 4 mg tablets in See Rx Instructions PO PER PKG DIR 06/12/23 Unknown Rx a dose pack (Medrol (Timbo)) #21 tabs cyclobenzaprine 10 mg tablet 10 mg PO Q12H PRN Muscle Spasm #10 12/29/23 Unknown Rx TABLETS lidocaine 5 % topical patch 1 patch topical DAILY #15 ea 12/29/23 Unknown Rx (Lidoderm) naproxen 500 mg tablet (Naprosyn) 500 mg PO BID PRN pa in #20 tabs 12/29/23 Unknown Rx cephalexin 500 mg capsule 500 mg PO BID 7 days #14 cap s 03/07/25 Unknown Rx Allergy/AdvReac Type Severity Reaction Status Date / Time No Known Allergies Allergy Verified 03/07/25 15:12 Surgical History Tonsillectomy planned Social History adopted: No household members: spouse housing: house current occupational status: unemployed current occupational exposures/hazards: No pets and animals: Yes history of recent travel: No sexually active: Yes Smoking Status: Never smoker second hand exposure: Yes alcohol intake: never substance use type: marijuana seatbelt use: always do you feel safe at home: Yes 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 Differential diagnosis includes but is not limited to UTI, urolithiasis, pyelonephritis, . NS bolus, morphine, Zofran ordered for symptoms. Laboratory workup ordered including CT abdomen/pelvis without contrast. CBC without leukocytosis or anemia. Patient does have some thrombocytosis of 534. This appears new to previous labs. BMP unremarkable without CAROL or electrolyte abnormality. Lactic acid unremarkable. UA is positive for blood and UTI. Urine culture sent. Urine positive. Patient ordered her first dose of Keflex here in the emergency department. I did review previous urine culture results and no sensitivities were listed. CT abdomen pelvis without contrast show patient symptoms are secondary to UTI. She is updated of all the results and the plan for discharge home. Follow-up with PCP. She confirmed understanding of the plan. Impression: 1. UTI 2. Thrombocytosis Lab Data Labs: Laboratory Results - last 24 hr 03/07/25 03/07/25 15:36 15:43 WBC 8.9 RBC 4.22 Hgb 12.5 Hct 37.3 MCV 88.4 MCH 29.6 MCHC 33.5 RDW Std Deviation 46.9 H RDW Coeff of Lili 14.6 Plt Count 534 H MPV 10.3 Immature Gran % (Auto) 0.200 Neut % (Auto) 67.2 Lymph % (Auto) 20.7 [place] % (Auto) 8.0 Eos % (Auto) 3.2 Baso % (Auto) 0.7 Absolute Neuts (auto) 6.0 Absolute Lymphs (auto) 1.84 Nucleated RBC % 0 Sodium 139 Potassium 3.8 Chloride 105 Carbon Dioxide 24.3 Anion Gap 9 BUN 13 Creatinine 0.78 Estim Creat Clear Calc 90.73 Est GFR (MDRD) Non-Af 107 BUN/Creatinine Ratio 16.1 Glucose 85 Lactic Acid < 1.0 Calcium 9.2 Urine Color Yellow Urine Clarity Cloudy Urine pH 7.0 Ur Specific [place] 1.010 Urine Protein 100 H Urine Glucose (UA) Normal Urine Ketones Negative Urine Occult Blood 250 H Urine Nitrite Negative Urine Bilirubin Negative Urine Urobilinogen Normal Ur Leukocyte Esterase 500 H Urine RBC 50-100 SEEN Urine WBC >100 SEEN Ur Squamous Epith Cells 0-5 SEEN Urine Bacteria 1+ Urine Mucus 1+ Urine Test Negative Radiography Diagnostic Testing: Clinical Impression(s) from Imaging Studies Abdomen/Pelvis CT 03/07/25 16:27 IMPRESSION: NORMAL NONCONTRAST CT OF THE ABDOMEN AND PELVIS. Reading Location: [facility] Discharge Plan Triage Chief Complaint: Complaint ED Provider: Cy Clark Dx/Rx/DC Orders Clinical Impression: UTI (urinary tract infection) Instructions: Urinary Tract Infections in Women, ED UTIs Women Prescriptions: New cephalexin 500 mg capsule 500 mg PO BID 7 Days Qty: 14 0RF No Action methylprednisolone [Medrol (Timbo)] 4 mg tablets,dose pack See Rx Instructions PO PER PKG DIR Qty: 21 0RF Rx Instructions: PO PER PKG DIR (DME) Hydrocortisone 2.5% / Lidocaine 5% ointment (cmpd) Ointment See Rx Instructions .Route Qty: 1 0RF Rx Instructions: As directed naproxen [Naprosyn] 500 mg tablet 500 mg PO BID PRN (Reason: pain) Qty: 20 0RF cyclobenzaprine 10 mg tablet 10 mg PO Q12H PRN (Reason: Muscle Spasm) Qty: 10 0RF lidocaine [Lidoderm] 5 % adhesive patch,medicated 1 patch topical DAILY Qty: 15 0RF Rx Instructions: leave on most painful area for up to 12 hrs Primary Care Provider: Care Physician,No Primary Referrals: Veena Carmona MD [Med Staff - Active Staff] - 3-5 Days David Michael MD [Med Staff - Active Staff] - 3-5 Days Care Physician,No Primary [Primary Care Provider] - Activity Restrictions/Additional Instructions: You received your first dose of antibiotics here in the emergency department. Follow-up with PCP and urology. Return back to the ED if symptoms change or worsen. Print Language: Mongolian Disposition Disposition: Home, Self Care Discharge Date/Time: 03/07/25 18:06
[2025-03-07] MEDS: Morphine 4 MG/ML Syringe IV (15:58)
[2025-03-07] MEDS: 0.9% Normal Saline (1000mL) 1,000 ML 999 ML IV (15:58)
[2025-03-07] MEDS: Ondansetron 4 MG/2 ML Vial IV (15:58)
[2025-03-07 16:02] LABS: Absolute Lymphocyte Count 1.84 X10^3/uL (0.83-4.51); Basophil# 0.06 X10^3/uL; Basophil% 0.7 % (0-1); Eosinophil# 0.28 X10^3/uL; Eosinophils% 3.2 % (0-5); Hematocrit 37.3 % (37-47); Hemoglobin 12.5 g/dL (12.0-15.0); Lymphocyte # 1.84 X10^3/ul (0.83-4.51); Lymphocyte % 20.7 % (19-41); Mean Corp Hgb Conc 33.5 g/dL (32-36); Mean Corpuscular Hgb 29.6 pg (27.0-32.0); Mean Corpuscular Volume 88.4 fL (81-99); Mean Platelet Vol. 10.3 fl (6.2-12.0); Monocyte# 0.71 X10^3/uL; NRBC Flagged by Analyzer 0 % (0-5); Neutrophil # 5.96 X10^3/uL (2.7-7.7); Neutrophil % 67.2 % (47-70); Platelet Count 534 K/mm3 (150-450); RBC Distribution Width CV 14.6 % (11.6-14.6); RBC Distribution Width SD 46.9 fl (35.1-43.9); Red Blood Count 4.22 M/mm3 (4.2-5.4); White Blood Count 8.9 K/mm3 (4.4-11.0)
[2025-03-07 16:05] LABS: Color, Urine Yellow (Yellow); Glucose, Dipstick Normal (Normal); Ketone-Dipstick Negative (Negative); Leukocyte Esterase-Dipstick 500 /ul (Negative); Nitrite-Dipstick Negative (Negative); Occult Blood-Urine 250 /ul (Negative); Protein-Dipstick 100 mg/dl (Negative); Urine Bilirubin Dipstick Negative (Negative); Urine Clarity Cloudy (Clear); Urine Urobilinogen Normal (Normal)
[2025-03-07 16:19] LABS: White Blood Cells >100 SEEN /hpf (0-5)
[2025-03-07 16:20] LABS: Red Blood Cells-Urine 50-100 SEEN /hpf (0-5)
[2025-03-07 16:21] LABS: Bacteria 1+ /hpf (None Seen); Mucous, Urine 1+ /hpf (<or=2+)
[2025-03-07 16:22] LABS: Internal QC Validated? YES +Cl - CLEAR BKGD; Pregnancy, Urine Negative Negative; Squamous Epithelial Cells - UA 0-5 SEEN /hpf (5-10)
[2025-03-07 16:24] LABS: Anion Gap 9 (5-15); BUN 13 mg/dL (4-19); BUN/Creat Ratio 16.1 RATIO (10-20); Calcium,Total 9.2 mg/dL (7.6-11.0); Carbon Dioxide 24.3 mmol/L (21.0-32.0); Chloride 105 mmol/L (98-108); Creatinine, Serum 0.78 mg/dL (0.70-1.20); EST Glomerular Filtration Rate 107 (>60); Estimated Creatinine Clearance 90.73 ml/min (50-250); Glucose 85 mg/dL (70-99); Potassium 3.8 mmol/L (3.3-5.1); Sodium Level 139 mmol/L (133-145)
--- NOTE | 2025-03-07 16:27 | CT_ITS ---
PROCEDURE: ABDOMEN/PELVIS WITHOUT CONT 03/07/2025 REASON FOR EXAM: PAIN TECHNIQUE: Abdomen and pelvis CT without intravenous contrast. Noncontrast technique limits evaluation of the abdominal and pelvic viscera. Coronal and Sagittal reconstruction series were provided. One or more dose reduction techniques were used (e.g., Automated exposure control, adjustment of the mA and/or kV according to patient size, use of iterative reconstruction technique). PATIENT PREPARATION: Per protocol ORAL CONTRAST TYPE: None. AMOUNT: mL FINDINGS: Lung bases: Unremarkable. Liver: Normal size. No obvious mass. Gallbladder: Unremarkable. Spleen: Normal size. Pancreas: Normal size. No surrounding inflammation. Adrenals: Unremarkable. Kidneys: No urolithiasis. No hydronephrosis. Bladder: Unremarkable. Reproductive Organs: Unremarkable. Bowel: No bowel obstruction. Appendix: Unremarkable. Lymph nodes: Unremarkable. Vasculature: The abdominal aorta and IVC contours are normal. Noncontrast technique limits evaluation. Peritoneum / Retroperitoneum: Small volume free fluid in the pelvis nonspecific and usually physiologic in a female patient of this age. Bones: Unremarkable. CT/Abdomen/Pelvis without Cont IMPRESSION: NORMAL NONCONTRAST CT OF THE ABDOMEN AND PELVIS. Reading Location: [id number]
[2025-03-07 16:36] LABS: Lactic Acid < 1.0 mmol/L (0.0-2.0)
[2025-03-07] MEDS: Cephalexin 250 MG Capsule 500 MG PO (17:16)
[2025-03-07 17:18] VITALS: BP 124/86; PULSE 87; RESP 16; O2SAT 98
== END 2025-03-07 18:06 | disposition home or self-care (01) ==
PROVIDERS: Emergency Provider Surgery; Visit Provider Surgery
DX: N39.0 Urinary tract infection, site not specified (principal); D75.839 Thrombocytosis, unspecified; Z87.442 Personal history of urinary calculi
CPT/HCPCS: 74176; 80048; 81001; 81025; 83605; 85025; 87077; 87086; 87088; 87186; 96361; 96374; 96375; 99284; A4216; J2405